=== PATIENT | female | born 1940 | race Caucasian/White ===

== ENCOUNTER → 2016-04-28 | Outpatient (CLI) | payer MEDICARE ==
[~2016-04-28] MED LIST: CALC600T10 PO; CARV6.252 PO; COLA100C PO; FLUO10TA PO; HYDR-3516 PO; HYZA50TA2 PO; MECL-62 PO; TAB-TAB PO; WALKER ROLLING
--- NOTE | 2016-05-04 09:16 | RSPPFT ---
DATE OF PROCEDURE: 04/28/16 COMMENTS: VOLUMES DYNAMIC: FVC and FEV1 normal. STATIC: RV mildly increased; TLC and VTG normal. FLOWS: FEV1% and FEF 25-75 normal. DIFFUSION: Normal. FLOW VOLUME LOOP: Flattening of the inspiratory loop. IMPRESSION: Essentially normal pulmonary functions with normal lung volumes, no significant airways obstruction, normal diffusion and no improvement post-bronchodilator. The flattening of the inspiratory loop required clinical correlation.
== END ==
LOC: HRSP 13:07
PROVIDERS: ATTEND Internal Medicine
DX: R06.02 Shortness of breath (principal)
CPT/HCPCS: 94060; 94620; 94726; 94729

== ENCOUNTER → 2016-06-28 | Day surgery (SDC) | payer MEDICARE ==
[~2016-06-28] MED LIST changes: +LACTATED RINGER'S 1,000 ML BAG IV ONE; +PROPOFOL 200 MG/20 ML AMP IV ONE
--- NOTE | 2016-06-28 13:22 | GIPROC ---
[facility] [address], [address] EGD PROCEDURE REPORT EXAM DATE: 06/28/2016 PATIENT NAME: Alia Jackson MR #: [id number] BIRTHDATE: 1940 ATTENDING: Ana Fajardo MD ORDER #: [id number] TOOL DIE MAKER: Daya Ramirez RN STATUS: outpatient INDICATIONS: The patient is a 75 yr old female here for an EGD due to dysphagia PROCEDURE PERFORMED: EGD w/ biopsy EGD w/ dilation of esophagus via guidewire MEDICATIONS: None and Per Anesthesia. TOPICAL ANESTHETIC: CONSENT: The patient understands the risks and benefits of the procedure and understands that these risks include, but are not limited to: sedation, allergic reaction, infection, perforation and/or bleeding. Alternative means of evaluation and treatment include, among others: physical exam, x-rays, and/or surgical intervention. The patient elects to proceed with this endoscopic procedure. medical equipment was checked for proper function. Hand hygiene and appropriate measures for infection prevention was taken. After the risks, benefits and alternatives of the procedure were thoroughly explained, Informed consent was verified, confirmed and timeout was successfully executed by the treatment team. The patient was anesthetized with topical anesthesia and the EC-[id number] ([id number]) endoscope was introduced through the mouth and advanced to the second portion of the duodenum. Retroflexed views revealed no abnormalities The gastroscope was then slowly withdrawn and removed. 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 The stricture was easily traversable. A biopsy was performed using cold forceps. Sample sent for histology. The stricture was dilated using a 17mm (51Fr) savary dilator over guidewire. STOMACH: There was mild gastritis in the gastric antrum. DUODENUM: The duodenal mucosa appeared normal in the bulb and second portion of the duodenum. ADVERSE EVENTS: There were no complications. IMPRESSIONS: 1. There was a short stricture in the distal esophagus 2. There was mild gastritis in the gastric antrum 3. Normal duodenal mucosa in the bulb and second portion of the duodenum 4. Retroflexed views revealed no abnormalities RECOMMENDATIONS: 1. Await biopsy results. Biopsy results will not be ready for 7-10 days. If you don't hear from us in two weeks, call our office for biopsy results. 2. Anti-reflux regimen 3. Continue PPI 4. Avoid NSAIDS PATIENT CONDITION: stable DISPOSITION: Home REPEAT EXAM: Return 1 year EGD with dilatation Ana Fajardo MD eSigned: Ana Fajardo MD 06/28/2016 1:21 PM cc: Marshall Boyer [facility] [place] PATIENT NAME: Alia Jackson MR#: [id number]
== END | disposition home or self-care (01) ==
LOC: ESDC 11:28
PROVIDERS: ATTEND Internal Medicine Gastroenterology
DX: R13.10 Dysphagia, unspecified (principal); K22.2 Esophageal obstruction; K29.70 Gastritis, unspecified, without bleeding
CPT/HCPCS: 00740; 43239; 43248; 88305; J7120

== ENCOUNTER 2016-08-29 10:09 | Emergency (ER) | payer MEDICARE ==
[~2016-08-29 10:09] MED LIST changes: -COLA100C PO; -HYDR-3516 PO; -LACTATED RINGER'S 1,000 ML BAG IV ONE; -PROPOFOL 200 MG/20 ML AMP IV ONE
[2016-08-29 10:12] VITALS: BP 135/65; PULSE 74; RESP 22; TEMP 98; O2SAT 98
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
[2016-08-29] MEDS ORDERED: SODIUM CHLORIDE 0.9% FLUSH 10 ML FLUSH IV FLUSH PRN (10:45)
[2016-08-29] MEDS ORDERED: ONDANSETRON HCL 4 MG/2 ML VIAL IVP ONE (10:45)
[2016-08-29] MEDS ORDERED: MORPHINE SULFATE 4 MG/ML INJ IV PUSH ONE (10:45)
[2016-08-29 11:24] LABS: AUTOMATED NEUTROPHIL # 5.6 TH/MM3 (1.8-7.7); BASOPHIL % 0.3 % (0.0-2.0); EOSINOPHIL # 0.1 TH/MM3 (0-0.4); EOSINOPHIL % 1.2 % (0.0-4.0); HEMATOCRIT 28.9 % (35.0-46.0); LYMPH % 31.8 % (9.0-44.0); LYMPHOCYTE # 2.9 TH/MM3 (1.0-4.8); MEAN CELL VOLUME 100.1 FL (80.0-100.0); MEAN CORPUSCULAR HEMOGLOBIN 33.8 PG (27.0-34.0); MEAN CORPUSCULAR HGB CONC 33.8 % (32.0-36.0); NEUT % 61.7 % (16.0-70.0); PLATELET COUNT 108 TH/MM3 (150-450); RED BLOOD COUNT 2.88 MIL/MM3 (4.00-5.30); WHITE BLOOD COUNT 9.1 TH/MM3 (4.0-11.0)
[2016-08-29 11:25] LABS: BACTERIA, URINE FEW /hpf; BLOOD, URINE NEG (NEG); COMMENT (UR) CULT NOT INDICATED; CULTURE IF INDICATED CULT NOT INDICATED; GLUCOSE,URINE NEG (NEG); KETONE, URINE NEG (NEG); NITRITE,URINE NEG (NEG); PH, URINE 5.5 (5.0-8.5); SQUAMOUS EPITHELIAL CELL URINE 4 /hpf (0-5); URINE COLOR YELLOW (YELLW/STRAW)
[2016-08-29 11:30] LABS: HEMO FLAGS AUTO DIFF
--- NOTE | 2016-08-29 11:41 | RADRPT ---
EXAM DATE/TIME: 08/29/2016 11:13 [facility] COMPARISON: CT ABDOMEN & PELVIS W/O CONTRAST, January 06, 2016, 16:15. INDICATIONS : Right flank pain for 3-4 weeks. Kidney pain ORAL CONTRAST: No oral contrast ingested. RADIATION DOSE: 15.55 CTDIvol (mGy) MEDICAL HISTORY : Renal calculi. SURGICAL HISTORY : Cholecystectomy. Appendectomy.Hysterectomy.DESMOND Fundiplication ENCOUNTER: Initial ACUITY: 3 weeks PAIN SCALE: 5/10 LOCATION: Right flank TECHNIQUE: Volumetric scanning of the abdomen and pelvis was performed. Using automated exposure control and ad justment of the mA and/or kV according to patient size, radiation dose was kept as low as reasonably achievable to obtain optimal diagnostic quality images. FINDINGS: LOWER LUNGS: The visualized lower lungs are clear. LIVER: The liver is mildly enlarged and demonstrates diffuse fatty infiltration. No focal hepatic mass is id entified on this unenhanced exam. There is no dilation of the biliary tree. No calcified gallstones . SPLEEN: Normal size without lesion. PANCREAS: Within normal limits. KIDNEYS: Normal in size and shape. Tiny calcified nonobstructing left renal calculi are noted and measure 3-4 mm each. There is no mass or hydronephrosis. ADRENAL GLANDS: Within normal limits. VASCULAR: There is no aortic aneurysm. BOWEL/MESENTERY: Small hiatal hernia is noted. Few uncomplicated sigmoid diverticula are noted. No acute diverticuliti s or colitis. ABDOMINAL WALL: Tiny ventral abdominal wall hernias containing only fat are noted. RETROPERITONEUM: There is no lymphadenopathy. BLADDER: No wall thickening or mass. REPRODUCTIVE: Within normal limits. Status post hysterectomy. INGUINAL: There is no lymphadenopathy or hernia. MUSCULOSKELETAL: Degenerative changes are noted throughout the lumbar and lower thoracic spine. Degenerative brush not ed involving the hips bilaterally. Left proximal femur hardware is noted status post ORIF. CONCLUSION: 1. Mildly enlarged fatty liver. 2. Multiple calcified nonobstructing left renal calculi measuring 3-4 mm each. 3. No acute obstructive uropathy. 4. Small hiatal hernia. 5. Uncomplicated sigmoid diverticulosis. 6. Tiny ventral abdominal wall hernias containing only fat. 7. Degenerative changes involving the lumbar spine and bilateral hips. Lio Mitchell MD on August 29, 2016 at 11:32 Board Certified Radiologist. This report was verified electronically.
[2016-08-29 11:50] LABS: ALKALINE PHOSPHATASE 144 U/L (45-117); TOTAL BILIRUBIN ADULT 0.4 MG/DL (0.2-1.0)
[2016-08-29 11:54] LABS: ALT (GPT) 29 U/L (10-53); ANION GAP 8 MEQ/L (5-15); AST (GOT) 28 U/L (15-37); BICARBONATE 28.1 MEQ/L (21.0-32.0); BLOOD UREA NITROGEN 20 MG/DL (7-18); CHLORIDE 106 MEQ/L (98-107); GLOMERULAR FILTRATION RATE 68 ML/MIN (>89); SODIUM (NA) 142 MEQ/L (136-145)
[2016-08-29] MEDS ORDERED: SODIUM CHLORID 0.9% 500 ML INJ 500 ML IV ONE (12:00)
[2016-08-29] MEDS ORDERED: COLA100C PO (12:04)
[2016-08-29] MEDS ORDERED: HYDR-3516 PO (12:04)
[2016-08-29 12:27] LABS: BANDS 1 % (0-6); METAMYELOCYTES 1 % (0-1); MYELOCYTES 1 % (0-0); NEUTROPHIL # MANUAL DIFF 5.9 TH/MM3 (1.8-7.7); POLYS (SEG NEUTROPHILS) 62 % (16-70); WBC DIFF SAMPLE 100
[2016-08-29 12:28] LABS: PLATELET ESTIMATE SMEAR LOW (NORMAL); PLATELET MORPHOLOGY NORMAL (NORMAL); SCAN/DIFF FINAL DIFF MANUAL
[2016-08-29] MEDS ORDERED: KETOROLAC TROMETHAMINE 30 MG/ML (IVP) VIAL IV PUSH ONE (12:30)
== END 2016-08-29 12:59 | disposition home or self-care (01) ==
LOC: NEPD 10:09
DX: M54.16 Radiculopathy, lumbar region (principal); R35.0 Frequency of micturition
CPT/HCPCS: 74176; 80053; 81001; 83690; 85007; 85027; 96374; 96375; 99285; J1885; J2270; J2405; J7040

== ENCOUNTER 2016-09-18 18:28 | Emergency (ER) | payer MEDICARE ==
[~2016-09-18] VITALS: Ht 165.1 cm; Wt 130.0 kg
[~2016-09-18 18:28] MED LIST changes: +COLA100C PO; +HYDR-3516 PO
[2016-09-18 18:29] VITALS: BP 124/69; PULSE 94; RESP 18; TEMP 97.9; O2SAT 100
[2016-09-18] MEDS ORDERED: SODIUM CHLOR 0.9% 1000 ML INJ 1,000 ML IV SCH (18:54)
[2016-09-18 18:55] VITALS: BP 154/75
[2016-09-18] MEDS ORDERED: MORPHINE SULFATE 4 MG/ML INJ IV PUSH ONE ×2 (19:00→21:00)
[2016-09-18] MEDS ORDERED: SODIUM CHLORIDE 0.9% FLUSH 10 ML FLUSH IV FLUSH PRN (19:00)
[2016-09-18] MEDS ORDERED: ONDANSETRON HCL 4 MG/2 ML VIAL IVP ONE (19:00)
[2016-09-18 19:05] VITALS: BP 178/99; PULSE 83; RESP 18; O2SAT 97
[2016-09-18] MEDS ORDERED: ORPHENADRINE INJ 60 MG/2 ML AMP IV ONE (19:15)
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
[2016-09-18 20:15] VITALS: BP 152/85; PULSE 70; RESP 18; O2SAT 98
[2016-09-18] MEDS ORDERED: CYCL5TAB PO (20:18)
[2016-09-18] MEDS ORDERED: MELO-1 PO (20:18)
[2016-09-18] MEDS ORDERED: LIDO5DIS5 TOPICAL (20:45)
[2016-09-18] MEDS ORDERED: ONDANSETRON HCL 4 MG/2 ML VIAL IV PUSH ONE (21:00)
[2016-09-18 21:11] VITALS: RESP 16
== END 2016-09-18 21:33 | disposition home or self-care (01) ==
LOC: NEPD 18:28
DX: I10 Essential (primary) hypertension (principal); F41.8 Other specified anxiety disorders; E11.9 Type 2 diabetes mellitus without complications; Z79.82 Long term (current) use of aspirin; M19.90 Unspecified osteoarthritis, unspecified site; K22.70 Barrett's esophagus without dysplasia; Z96.653 Presence of artificial knee joint, bilateral; M54.16 Radiculopathy, lumbar region; M62.838 Other muscle spasm
CPT/HCPCS: 96361; 96374; 96375; 96376; 99284; J2270; J2360; J2405; J7030

== ENCOUNTER 2017-07-06 21:46 | Emergency (ER) | payer MEDICARE ==
[~2017-07-06] VITALS: Ht 162.6 cm; Wt 130.0 kg
[~2017-07-06 21:46] MED LIST changes: -COLA100C PO; +COLA100C5 PO; +CYCL5TAB PO; +LIDO1ADH4 TOPICAL; +MELO15TA20 PO
[2017-07-06 21:55] VITALS: BP 149/93; PULSE 98; RESP 18; TEMP 98.1; O2SAT 94
--- NOTE | 2017-07-06 23:08 | RADRPT ---
EXAM DATE/TIME: 07/06/2017 22:15 [facility] COMPARISON: No previous studies available for comparison. INDICATIONS : Patient fell and and complains of right shoudler pain. MEDICAL HISTORY : None. SURGICAL HISTORY : None. ENCOUNTER: Initial ACUITY: 1 day PAIN SCORE: 7/10 LOCATION: Right Shoulder FINDINGS: Multiple view examination of the right shoulder demonstrates no evidence of fracture or dislocation. The glenohumeral and acromioclavicular joints are maintained. There is normal range of motion betwe en internal and external rotation. Bony mineralization is normal. CONCLUSION: No acute disease. Slava Palacios MD on July 06, 2017 at 23:06 Board Certified Radiologist. This report was verified electronically.
--- NOTE | 2017-07-06 23:09 | RADRPT ---
EXAM DATE/TIME: 07/06/2017 22:24 [place] COMPARISON: No previous studies available for comparison. INDICATIONS : Patient complains of right humerus pain status post fall. MEDICAL HISTORY : None. SURGICAL HISTORY : Radial head arthroplasty. ENCOUNTER: Initial ACUITY: 1 day PAIN SCORE: 7/10 LOCATION: Right Humerus FINDINGS: Two view examination of the right humerus demonstrates no evidence of fracture or dislocation. Bony mineralization is normal. There is a prosthetic component seen at the radial head region. The soft ti ssue structures are intact. CONCLUSION: No acute disease. Slava Palacios MD on July 06, 2017 at 23:06 Board Certified Radiologist. This report was verified electronically.
[2017-07-06] MEDS ORDERED: CARV6.25 PO (23:19)
[2017-07-06] MEDS ORDERED: LOSA50TA2 PO (23:19)
[2017-07-06] MEDS ORDERED: FLUO10TA PO (23:19)
[2017-07-06] MEDS ORDERED: CALC12502 PO (23:19)
[2017-07-06] MEDS ORDERED: ONDANSETRON ODT 4 MG TAB PO ONE (23:30)
[2017-07-06] MEDS ORDERED: ACETAMINOPHEN/HYDROcodone 325 MG/5 MG TAB PO ONE (23:30)
--- NOTE | 2017-07-06 23:31 | PD ---
HPI Chief Complaint: Injury Time Seen by Provider: 23:10 Travel History International Travel<30 days: No Contact w/Intl Traveler<30days: No Traveled to known affect area: No History of Present Illness HPI 68-year-old female complains of right arm pain. She experienced a mechanical fall and struck the right arm against current table. No head injury or loss of consciousness. The pain has been constant since and of moderate severity. EMS applied an ice pack which was helpful. Onset sudden. PFSH Past Medical History Hx Anticoagulant Therapy: Yes (81 MG ASA ) Arthritis: Yes (osteoarthritis) Asthma: No Autoimmune Disease: No Blood Disorders: No Anxiety: Yes Depression: Yes Heart Rhythm Problems: No Cancer: Yes Cardiac Catheterization: Yes Cardiovascular Problems: Yes High Cholesterol: No Chemotherapy: No Chest Pain: Yes Congestive Heart Failure: No COPD: No Cerebrovascular Accident: No Diabetes: Yes Patient Takes Glucophage: No Diminished Hearing: No Endocrine: No Gastrointestinal Disorders: Yes (Wilkinson's esophagus) GERD: Yes Glaucoma: No Genitourinary: Yes Headaches: Yes Hepatitis: No Hiatal Hernia: Yes Hypertension: Yes Immune Disorder: No Implanted Vascular Access Dvce: Yes Kidney Stones: Yes Medical other: Yes (HX MRSA) Musculoskeletal: Yes Neurologic: Yes Psychiatric: Yes (ANXIETY, DEPRESSION) Reproductive: No Respiratory: Yes (SLEEP APNEA--USES CPAP) Immunizations Current: Yes Migraines: No Myocardial Infarction: No Radiation Therapy: No Renal Failure: No Seizures: No Sickle Cell Disease: No Sleep Apnea: No Thyroid Disease: No Ulcer: Yes Menopausal: Yes Past Surgical History Abdominal Surgery: Yes (GALLBLADDER; APPENDECTOMY; MARVA FUNDIPLICATION) AICD: No Appendectomy: Yes Arteriovenous Shunt: No Body Medical Devices: LEFT HIP WITH KAT AND PINS Cardiac Surgery: No Cholecystectomy: Yes Coronary Artery Bypass Graft: No Ear Surgery: No Endocrine Surgery: No Eye Surgery: Yes (CATARACTS) Genitourinary Surgery: Yes Gynecologic Surgery: Yes Hysterectomy: Yes Insulin Pump: No Joint Replacement: Yes (kay knee, lt hip) Neurologic Surgery: No Oral Surgery: Yes Pacemaker: No Thoracic Surgery: No Tonsillectomy: Yes Other Surgery: Yes (LAMINECTOMY) Social History Alcohol Use: No Tobacco Use: No Substance Use: No Allergies-Medications (Allergen,Severity, Reaction): Coded Allergies: Sulfa (Sulfonamide Antibiotics) (Unverified Allergy, Severe, RASH/SWELLING , 10/31/16) adhesive (Unverified Allergy, Severe, ONLY ADHESIVE TAPE, 10/31/16) gabapentin (Unverified Allergy, Severe, UNKNOWN REACTION, 10/31/16) codeine (Unverified Allergy, Mild, RASH/SWELLING, 10/31/16) *MDRO Multi-Drug Resistant Organism (Verified Adverse Reaction, Unknown, ) KPC Klebsiella pneumoniae (urine) - 12/2009 VRE Enterococcus faecium (urine) - 03/2009 Reported Meds & Prescriptions Reported Meds & Active Scripts Active Lidoderm (Lidocaine) 5 % Adh..patch 1 Patch TOPICAL DAILY PRN Flexeril (Cyclobenzaprine HCl) 5 Mg Tab 5 Mg PO TID PRN 7 Days Meloxicam 15 Mg Tab 15 Mg PO DAILY 7 Days Colace (Docusate Sodium) 100 Mg Capsule 1 Tab PO BID PRN Reported Losartan-Hydrochlorothiazide 50-12.5 Mg Tab 1 Tab PO DAILY Fluoxetine (Fluoxetine HCl) 10 Mg Tab 10 Mg PO DAILY Coreg (Carvedilol) 6.25 Mg Tab 6.25 Mg PO BID Calcium (Oyster Shell) 500 Mg Calcium (1250 Mg) Tab 500 Mg PO DAILY Review of Systems General / Constitutional: No: Chills Eyes: No: Drainage Physical Exam Narrative GENERAL: Pleasant 76-year-old female mild distress secondary pain Vital Signs Date Time Temp Pulse Resp B/P (MAP) Pulse Ox O2 Delivery O2 Flow Rate FiO2 07/06/17 21:55 98.1 98 18 149/93 (111) 94 SKIN: Warm and dry. HEAD: Atraumatic. Normocephalic NECK: Trachea midline. No JVD. CARDIOVASCULAR: Regular rate and rhythm. RESPIRATORY: No accessory muscle use. Clear to auscultation. Breath sounds equal bilaterally. GASTROINTESTINAL: Abdomen soft, non-tender, nondistended. Hepatic and splenic margins not palpable. MUSCULOSKELETAL: Ecchymosis about the right humerus. Range of motion at the elbow and shoulder normal. Hand grades 9 through 12 teacher equal bilaterally. 2+ radial artery pulse bilaterally. NEUROLOGICAL: Awake and alert. No obvious cranial nerve deficits. Motor grossly within normal limits. Five out of 5 muscle strength in the arms and legs. Normal speech. PSYCHIATRIC: Appropriate mood and affect; insight and judgment normal. Data Data Last Documented VS Vital Signs Date Time Temp Pulse Resp B/P (MAP) Pulse Ox O2 Delivery O2 Flow Rate FiO2 4/20/18 21:55 98.1 98 18 149/93 (111) 94 Orders Orders Humerus (Min 2vws) (07/06/17 ) Shoulder, Complete (>2vws) (07/06/17 ) Ed Discharge Order (07/06/17 23:29) Acetamin-Hydrocod 325-5 Mg ([place] 5-325 (07/06/17 23:30) Ondansetron Odt (Zofran Odt) (07/06/17 23:30) ^ Sling (07/06/17 23:30) MDM Medical Decision Making Medical Screen Exam Complete: Yes Emergency Medical Condition: Yes Medical Record Reviewed: Yes Differential Diagnosis Fracture, dislocation, contusion Narrative Course Imaging is unremarkable. Patient is ready for discharge. Ice with a sling for pain control at home along with Tylenol as needed. Diagnosis Primary Impression: Contusion, arm, upper Qualified Codes: S40.021A - Contusion of right upper arm, initial encounter Additional Impression: Fall Qualified Codes: W19.XXXA - Unspecified fall, initial encounter Referrals: Primary Care Physician call for appointment Med/Other Pt SpecificInfo: No Change to Meds Disposition: 01 DISCHARGE HOME Condition: Stable Dennis Castañeda MD Jul 06, 2017 23:31
== END 2017-07-07 00:45 | disposition home or self-care (01) ==
LOC: NEDAMB 21:46 → NEPD 07-07 00:45
DX: S40.021A Contusion of right upper arm, initial encounter (principal); I10 Essential (primary) hypertension
CPT/HCPCS: 73030; 73060; 99283

== ENCOUNTER → 2017-07-18 | Day surgery (SDC) | payer MEDICARE ==
[~2017-07-18] MED LIST changes: +CALC12502 PO; -CALC600T10 PO; +CARV6.25 PO; -CARV6.252 PO; -HYDR-3516 PO; -HYZA50TA2 PO; +LACTATED RINGER'S 1000 ML INJ 1,000 ML ONE; +LOSA50TA2 PO; -MECL-62 PO; +PROPOFOL 200 MG/20 ML AMP IV ONE; -TAB-TAB PO; -WALKER ROLLING
--- NOTE | 2017-07-18 09:02 | GIPROC ---
[facility] [address] [facility], [id number] EGD PROCEDURE REPORT EXAM DATE: 07/18/2017 PATIENT NAME: Alia Jackson MR #: [id number] BIRTHDATE: 1940 ATTENDING: Ana Fajardo MD ORDER #: [id number] [employer]: Sita Gudino RN STATUS: outpatient INDICATIONS: The patient is a 76 yr old female here for an EGD due to history of esophageal reflux and dysphagia PROCEDURE PERFORMED: EGD w/ biopsy EGD w/ dilation of esophagus via guidewire MEDICATIONS: None and Per Anesthesia. TOPICAL ANESTHETIC: CONSENT: The patient understands the risks and benefits of the procedure and understands that these risks include, but are not limited to: sedation, allergic reaction, infection, perforation and/or bleeding. Alternative means of evaluation and treatment include, among others: physical exam, x-rays, and/or surgical intervention. The patient elects to proceed with this endoscopic procedure. medical equipment was checked for proper function. Hand hygiene and appropriate measures for infection prevention was taken. After the risks, benefits and alternatives of the procedure were thoroughly explained, Informed consent was verified, confirmed and timeout was successfully executed by the treatment team. The patient was anesthetized with topical anesthesia and the EC-[id number] ([id number]) endoscope was introduced through the mouth and advanced to the second portion of the duodenum. Retroflexed views revealed no abnormalities The gastroscope was then slowly withdrawn and removed. ESOPHAGUS: There was a short benign appearing stricture in the distal esophagus. The stricture was easily traversable. The stricture was dilated using a 15mm (45Fr) savary dilator over guidewire. STOMACH: There was erythematous moderate gastritis in the gastric antrum. A biopsy was performed using cold forceps. Sample sent for histology. DUODENUM: The duodenal mucosa appeared normal in the bulb and second portion of the duodenum. ADVERSE EVENTS: There were no complications. IMPRESSIONS: 1. There was a short stricture in the distal esophagus; The stricture was dilated using a 15mm (45Fr) savary dilator over guidewire 2. There was erythematous gastritis in the gastric antrum; biopsy was performed 3. Normal duodenal mucosa in the bulb and second portion of the duodenum 4. Retroflexed views revealed no abnormalities RECOMMENDATIONS: 1. Await biopsy results. Biopsy results will not be ready for 7-10 days. If you don't hear from us in two weeks, call our office for biopsy results. 2. Anti-reflux regimen 3. Continue PPI 4. Ranitidine 150mg q hs PATIENT CONDITION: stable DISPOSITION: Home REPEAT EXAM: Return 1 year EGD with dilatation Ana Fajardo MD eSigned: Ana Fajardo MD 07/18/2017 9:02 AM cc: Piyush Boyer [facility] Arlien Cali M.D. PATIENT NAME: Alia Jackson MR#: [id number]
== END | disposition home or self-care (01) ==
LOC: ESDC 07:32
PROVIDERS: ATTEND Internal Medicine Gastroenterology
DX: K21.9 Gastro-esophageal reflux disease without esophagitis (principal); R13.10 Dysphagia, unspecified; K22.2 Esophageal obstruction; K29.70 Gastritis, unspecified, without bleeding
CPT/HCPCS: 00731; 43239; 43248; 88305; 88312; J3010; J7120

== ENCOUNTER 2018-02-20 15:02 | Inpatient (IN) ==
[2018-02-20] MEDS ORDERED: Sod Chloride 0.9% Inj 1,000 ML IV.SIG SCH (15:30)
--- NOTE | 2018-02-20 15:43 | ED ---
HPI General Chief Complaint: Fall Stated Complaint: fall Time Seen by Provider: 02/20/18 15:19 Source: patient Mode of arrival: ambulatory Limitations: no limitations History of Present Illness HPI Narrative: 77-year-old female with a history of diabetes mellitus type 2 with peripheral neuropathy, hypertension, hyperlipidemia presents to the emergency department for evaluation of a fall that occurred just prior to arrival. Patient states that she stood up from her seat got dizzy and fell landing on her left side of the body. She denies loss of consciousness, blurred vision, headache. Denies neck or back pain. Denies numbness or tingling to extremities that is abnormal for her. She says her pain is focused in the left wrist, left elbow, and left eye. She says she has bruises to these areas and has difficulty walking secondary to pain. Patient denies use of blood thinners but does take aspirin daily. She denies history of cardiac problems. She denies fever, chills, chest pain, shortness of breath, abdominal pain. Says the left knee feels swollen and has difficulty bending the knees secondary to pain. She denies numbness or tingling to the extremities. Related Data Home Medications Medication Instructions Recorded Confirmed aspirin [Enteric Coated Aspirin] 81 mg PO DAILY 02/05/18 02/20/18 calcium carbonate-vitamin D3 600 mg PO DAILY 02/05/18 02/20/18 [Calcium 600 + D(3)] carvedilol 3.125 mg PO BID 02/05/18 02/20/18 letrozole 2.5 mg PO DAILY 02/05/18 02/20/18 losartan-hydrochlorothiazide 1 tab PO DAILY 02/05/18 02/20/18 magnesium oxide 400 mg PO DAILY 02/05/18 02/20/18 pantoprazole 40 mg PO DAILY 02/05/18 02/20/18 simvastatin 20 mg PO QPM 02/05/18 02/20/18 venlafaxine 75 mg PO DAILY 02/05/18 02/20/18 sitagliptin [Januvia] 50 mg PO DAILY 02/20/18 02/20/18 Allergies Allergy/AdvReac Type Severity Reaction Status Date / Time adhesive Allergy Severe Rash Verified 02/20/18 15:19 gabapentin Allergy Severe Anaphylaxis Verified 02/20/18 15:19 Sulfa (Sulfonamide Allergy Severe RASH/SWELLI Verified 02/20/18 15:19 Antibiotics) NG codeine Allergy Mild RASH/SWELLI Verified 02/20/18 15:19 NG Review of Systems ROS: all other systems reviewed are negative [facility] History History Provided By: Patient Medical History Medical History Wilkinson esophagus (Acute) Breast cancer (Acute) Cataracts, bilateral (Acute) Constipation (Acute) Depression (Acute) Diabetes (Acute) Diverticulosis (Acute) Esophagitis (Acute) GERD (gastroesophageal reflux disease) (Acute) High cholesterol (Acute) Hypertension (Acute) Incontinence (Acute) Osteoporosis (Acute) Sleep apnea (Acute) Social History Social History Substance History: No History of Abuse Second Hand Smoke Exposure: No Smoking Status: Never smoker How Often Do You Have a Drink Containing Alcohol: Never Recent Travel in [facility] within the Last 8 Weeks: No Exam Narrative Exam Narrative: GENERAL: WD, WN in NAD SKIN: Focused skin assessment warm/dry. HEAD: Atraumatic. Normocephalic. EYES: Pupils equal and round. No scleral icterus. No injection or drainage. Lateral left eye-small ecchymosis with tenderness directly over the hematoma. EOMI without restriction ENT: No nasal bleeding or discharge. Mucous membranes pink and moist. No tonsillar hypertrophy or exudate. NECK: Trachea midline. No JVD. No meningismus. No midline tenderness. CARDIOVASCULAR: Regular rate and rhythm. No murmur appreciated. RESPIRATORY: No accessory muscle use. Clear to auscultation. Breath sounds equal bilaterally. GASTROINTESTINAL: Abdomen soft, non-tender, nondistended. No CVAT. MUSCULOSKELETAL: No obvious deformities. No clubbing. No cyanosis. No edema. No tenderness to palpation of the calves. Sensation intact to bilateral lower extremities. left knee- ecchymosis measuring 3cm over patella with TTP. Difficulty moving secondary to pain. pulse, motor, sensory intact. left wrist- ecchymosis of wrist, limited range of motion but able to flex and extend wrist with minimal discomfort. pulse, motor, sensory intact. left shoulder- TTP to shoulder girdle, limited ROM but able to adduct and abduct with near FROM. pulse, motor, sensory intact. NEUROLOGICAL: Awake and alert. No obvious cranial nerve deficits. Motor grossly within normal limits. Normal speech. PSYCHIATRIC: Appropriate mood and affect; insight and judgment normal. Course Initial Documented Vital Signs Temperature 98 F 12/05/18 15:20 Pulse Rate 73 02/20/18 15:20 Respiratory Rate 18 02/20/18 15:20 Blood Pressure 143/67 H 02/20/18 15:20 Pulse Oximetry 99 02/20/18 15:20 Last Documented Vital Signs Temperature 97.8 F 02/20/18 18:28 Pulse Rate 76 02/20/18 18:28 Respiratory Rate 18 02/20/18 18:55 Blood Pressure 138/77 02/20/18 18:28 Pulse Oximetry 98 02/20/18 18:28 Medical Decision Making MATTEO Attestation MATTEO supervised visit: Yes Attestation: I, Dr. George, have reviewed the advance practice practitioner' s documentation and am in agreement, met with the patient face to face, made the diagnosis, and the medical decision making was done by me. *My assessment and Findings: 77-year-old female who was initially evaluated by the mid-level procedure note. The patient fell, injuring her left knee and wrist. The x-ray of the left knee revealed no fracture, she did have swelling and ecchymosis, however, x-ray of the left wrist revealed a nondisplaced fracture. The patient lives alone at home, her 8 years ago. She uses a walker with wheels to ambulate around the house, is unable to get up and ambulate with a walker currently secondary to the left wrist fracture in a splint. Therefore, case management was notified, they will attempt to obtain home health care nursing starting tomorrow, the patient will be 23-hour observation and may benefit from physical therapy evaluation to evaluate what the patient will need at home in order to perform her ADLs, ambulation, and pain control. [facility] Narrative Medical decision making narrative: 77-year-old female presents to the emergency department evaluation after a fall that occurred today. She states she stood up , felt dizzy and then fell onto the ground. She denies loss of consciousness. Says she has a contusion to the left lateral orbit. She is also complaining of left knee pain, left wrist pain. Labs ordered for evaluation appear to be stable. No leukocytosis. Urinalysis noncontributory. Troponin negative. EKG sinus rhythm rate [address] head, neck and face stable. Without acute process. Left wrist fracture noted. She is neurovascularly intact. Placed in splint. Left knee without fracture but contusions present and she c/o pain. Hydrocodone x2 administered for pain. I discussed this case with my attending who believes she would benefit from an admission. Will admit and have HHC and PT evaluate. Pt would be an unsafe discharge at this time as she lives alone without family available. She would be unable to use her walker as she has a wrist fracture. Will recommend patient be evaluated by ortho (Dr. Julien) for her wrist fracture. Spoke with the residents who agreed to the admission. Medical Screen Exam Complete: Yes Emergency Medical Condition: Yes Differential Diagnosis Differential Diagnosis: Left wrist fracture, sprain, left knee fracture, contusion, left facial contusion, ICH, SAH Lab Data Result diagrams: 02/20/18 15:00 02/20/18 15:00 Lab Results 02/20/18 02/20/18 02/20/18 Range/Units 15:00 15:00 15:00 WBC 10.7 (4.0-11.0) th/mm3 RBC 3.81 L (4.00-5.30) mil/mm3 Hgb 12.4 (11.6-15.3) gm/dL Hct 36.9 (35.0-46.0) % MCV 96.9 (80.0-100.0) fL MCH 32.6 (27.0-34.0) pg MCHC 33.6 (32.0-36.0) % RDW 14.1 (11.6-17.2) % Plt Count 246 (150-450) th/mm3 MPV 8.0 (7.0-11.0) fL Neut % (Auto) 73.7 H (16.0-70.0) % Lymph % (Auto) 16.6 (9.0-44.0) % [place] % (Auto) 6.7 (0.0-8.0) % Eos % (Auto) 2.0 (0.0-4.0) % Baso % (Auto) 1.0 (0.0-2.0) % Neut # (Auto) 7.9 H (1.8-7.7) th/mm3 Lymph # (Auto) 1.8 (1.0-4.8) th/mm3 Charl[place] # (Auto) 0.7 (0.0-0.9) th/mm3 Eos # (Auto) 0.2 (0.0-0.4) th/mm3 Baso # (Auto) 0.1 (0.0-0.2) th/mm3 WBC Differential . Differential Comment Auto diff final PT 11.4 (9.8-11.6) sec INR 1.1 Ratio APTT 31.6 (23.4-31.7) sec Sodium 141 (136-145) meq/L Potassium 3.6 (3.5-5.1) meq/L Chloride 106 (98-107) meq/L Carbon Dioxide 26.3 (21.0-32.0) meq/L Anion Gap 9 (5-15) meq/L BUN 16 (7-18) mg/dL Creatinine 0.87 (0.50-1.00) mg/dL Estimated GFR 63 L (>89) mL/min Random Glucose 159 H (74-106) mg/dL Calcium 9.3 (8.5-10.1) mg/dL Total Bilirubin 0.3 (0.2-1.0) mg/dL AST 17 (15-37) U/L ALT 30 (10-53) U/L Alkaline Phosphatase 88 (45-117) U/L Troponin I (0.02-0.05) ng/mL Total Protein 7.3 (6.4-8.2) g/dL Albumin 3.3 L (3.4-5.0) g/dL Urine Color (Yellw/Straw) Urine Clarity (Clear) Urine pH (5.0-8.5) Ur Specific [place] (1.002-1.035) Urine Protein (Neg-Trace) mg/dL Urine Glucose (UA) (Negative) mg/dL Urine Ketones (Negative) mg/dL Urine Occult Blood (Negative) Urine Nitrate (Negative) Urine Bilirubin (Negative) Urine Urobilinogen (Less than 2) mg/dL Ur Leukocyte Esterase (Negative) Urine RBC (0-3) /hpf Urine WBC (0-5) /hpf Ur Squamous Epith Cells (0-5) /hpf Hyaline Casts (0-3) /lpf Urine Mucus (Occasional) /lpf Micro UA Comment Ur Microscopic Review Urine Culture Comments 02/20/18 02/20/18 Range/Units 15:00 16:30 WBC (4.0-11.0) th/mm3 RBC (4.00-5.30) mil/mm3 Hgb (11.6-15.3) gm/dL Hct (35.0-46.0) % MCV (80.0-100.0) fL MCH (27.0-34.0) pg MCHC (32.0-36.0) % RDW (11.6-17.2) % Plt Count (150-450) th/mm3 MPV (7.0-11.0) fL Neut % (Auto) (16.0-70.0) % Lymph % (Auto) (9.0-44.0) % [place] % (Auto) (0.0-8.0) % Eos % (Auto) (0.0-4.0) % Baso % (Auto) (0.0-2.0) % Neut # (Auto) (1.8-7.7) th/mm3 Lymph # (Auto) (1.0-4.8) th/mm3 [place] # (Auto) (0.0-0.9) th/mm3 Eos # (Auto) (0.0-0.4) th/mm3 Baso # (Auto) (0.0-0.2) th/mm3 WBC Differential Differential Comment PT (9.8-11.6) sec INR Ratio APTT (23.4-31.7) sec Sodium (136-145) meq/L Potassium (3.5-5.1) meq/L Chloride (98-107) meq/L Carbon Dioxide (21.0-32.0) meq/L Anion Gap (5-15) meq/L BUN (7-18) mg/dL Creatinine (0.50-1.00) mg/dL Estimated GFR (>89) mL/min Random Glucose (74-106) mg/dL Calcium (8.5-10.1) mg/dL Total Bilirubin (0.2-1.0) mg/dL AST (15-37) U/L ALT (10-53) U/L Alkaline Phosphatase (45-117) U/L Troponin I Less than 0.02 L (0.02-0.05) ng/mL Total Protein (6.4-8.2) g/dL Albumin (3.4-5.0) g/dL Urine Color Yellow (Yellw/Straw) Urine Clarity Hazy H (Clear) Urine pH 5.0 (5.0-8.5) Ur Specific [place] 1.019 (1.002-1.035) Urine Protein Negative (Neg-Trace) mg/dL Urine Glucose (UA) Negative (Negative) mg/dL Urine Ketones Negative (Negative) mg/dL Urine Occult Blood Negative (Negative) Urine Nitrate Negative (Negative) Urine Bilirubin Negative (Negative) Urine Urobilinogen Less than 2 (Less than 2) mg/dL Ur Leukocyte Esterase Negative (Negative) Urine RBC 1 (0-3) /hpf Urine WBC 1 (0-5) /hpf Ur Squamous Epith Cells 3 (0-5) /hpf Hyaline Casts 1 (0-3) /lpf Urine Mucus Few H (Occasional) /lpf Micro UA Comment Culture not ind Ur Microscopic Review Not Reportable Urine Culture Comments Culture not ind Imaging Data Radiologist's impression: Cervical Spine CT 02/20/18 15:28 CONCLUSION: 1. Stable osteopenia and degenerative changes are noted throughout the cervical spine. 2. Mild broad-based bulging with disc osteophyte complex at C5-6. 3. No significant changes are seen compared to the prior exam. Face CT 02/20/18 15:28 CONCLUSION: 1. No acute bony fracture. 2. Chronic sinus disease in the right sphenoid and ethmoid sinuses. 3. 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 Head CT 02/20/18 15:28 CONCLUSION: 1. No focal or acute intracranial hemorrhage. 2. Stable bilateral cortical atrophy and chronic white matter changes. . Knee X-Ray 02/20/18 15:28 CONCLUSION: 1. Status post left knee arthroplasty. No radiographic evidence for hardware failure. 2. No acute fracture. Shoulder X-Ray 02/20/18 15:28 CONCLUSION: Degenerative changes suggesting chronic rotator cuff tear. Fracture not appreciated. Wrist X-Ray 02/20/18 15:28 CONCLUSION: Nondisplaced fracture of the distal radius and ulna. Diffuse osteopenia Discharge Plan Discharge Disposition Patient Disposition: ED Admit(ED Internal Use Only) Discharge Condition Condition: Stable Discharge Order Discharge Orders: ED Use Only Admit Order (Routine); Ordered 02/20/18 Ordered By: Sharmila Souza Discharge Details Diagnosis: Fracture of wrist, Knee contusion, Fall Physicians Team ED Provider: Yobani George ED Midlevel Provider: Sharmila Souza Primary Care Provider: Marshall Cali Attending Provider: Leonidas Cortes Status ED Status: Left Department Discharge Information Discharge Date/Time: 02/20/18 20:30
[2018-02-20 16:06] LABS: Baso # (Auto) 0.1 th/mm3 (0.0-0.2); Eos # (Auto) 0.2 th/mm3 (0.0-0.4); Hematocrit 36.9 % (35.0-46.0); Hemoglobin 12.4 gm/dL (11.6-15.3); Lymph # (Auto) 1.8 th/mm3 (1.0-4.8); Lymph % (Auto) 16.6 % (9.0-44.0); Mean Corpuscular HGB Conc 33.6 % (32.0-36.0); Mean Corpuscular Hemoglobin 32.6 pg (27.0-34.0); Mean Corpuscular Volume 96.9 fL (80.0-100.0); Mono # (Auto) 0.7 th/mm3 (0.0-0.9); Mono % (Auto) 6.7 % (0.0-8.0); Neut # (Auto) 7.9 th/mm3 (1.8-7.7); Neut % (Auto) 73.7 % (16.0-70.0); Platelet Count 246 th/mm3 (150-450); Red Blood Count 3.81 mil/mm3 (4.00-5.30); Red Cell Distribution Width 14.1 % (11.6-17.2); White Blood Count 10.7 th/mm3 (4.0-11.0)
[2018-02-20 16:12] LABS: Activated Partial Thrombo Time 31.6 sec (23.4-31.7); INR 1.1 Ratio; Prothrombin Time 11.4 sec (9.8-11.6)
--- NOTE | 2018-02-20 16:42 | XR ---
EXAM DATE: 02/20/2018 4:37 PM EST AGE/SEX: 77 years / Female INDICATIONS: Left knee pain post fall today CLINICAL DATA: This is the patient's initial encounter. Patient reports that signs and symptoms have been present for 1 day and indicates a pain score of 8/10. MEDICAL/SURGICAL HISTORY: None. Total knee replacement, left. [place] [facility] [place]/2016. . FINDINGS: There is a stable left knee arthroplasty in place. Arthroplasty components are in anatomic alignment. No perihardware loosening. Osseous structures appear intact without evidence for acute fracture. No significant suprapatellar effusion. Soft tissue hematoma in the suprapatellar region. No radiopaque s oft tissue foreign bodies. CONCLUSION: 1. Status post left knee arthroplasty. No radiographic evidence for hardware failure. 2. No acute fracture. Electronically signed by: Paolo Pantoja MD 02/20/2018 4:41 PM EST
--- NOTE | 2018-02-20 16:43 | XR ---
EXAM DATE: 02/20/2018 4:40 PM EST AGE/SEX: 77 years / Female INDICATIONS: Left wrist pain post fall today CLINICAL DATA: This is the patient's initial encounter. Patient reports that signs and symptoms have been present for 1 day and indicates a pain score of 8/10. MEDICAL/SURGICAL HISTORY: . Prior left wrist fracture . Prior ORIF left wrist COMPARISON: . FINDINGS: Bones are osteoporotic. There is a minimally impacted fracture of the distal radius. There is an acut e fracture the ulnar styloid as well. Alignment is reasonably anatomic. Extensive degenerative change s are present about the carpus. CONCLUSION: Nondisplaced fracture of the distal radius and ulna. Diffuse osteopenia Electronically signed by: Solomon Emmanuel MD 02/20/2018 4:42 PM EST
--- NOTE | 2018-02-20 16:46 | XR ---
EXAM DATE: 02/20/2018 4:42 PM EST AGE/SEX: 77 years / Female INDICATIONS: Left shoulder pain post fall today CLINICAL DATA: This is the patient's initial encounter. Patient reports that signs and symptoms have been present for 1 day and indicates a pain score of 8/10. MEDICAL/SURGICAL HISTORY: None. None. COMPARISON: . FINDINGS: There are degenerative changes about the shoulder with acromioclavicular joint spurring. There is becca e narrowing of the rotator cuff interval. Alignment anatomic. Fracture is not appreciated. CONCLUSION: Degenerative changes suggesting chronic rotator cuff tear. Fracture not appreciated. Electronically signed by: Solomon Emmanuel MD 02/20/2018 4:45 PM EST
--- NOTE | 2018-02-20 17:05 | CT ---
EXAM DATE: 02/20/2018 4:58 PM EST AGE/SEX: 77 years / Female INDICATIONS: Trauma, facial injury. CLINICAL DATA: This is the patient's initial encounter. Patient reports that signs and symptoms have been present for 1 day and indicates a pain score of 5/10. MEDICAL/SURGICAL HISTORY: Carcinoma, breast. Diabetes. Hypertension. Appendectomy. Cholecyst ectomy. RADIATION DOSE: 25.63 CTDI (mGy) COMPARISON: [facility], CT CERVICAL SPINE W/O CONTRAST, 01/08/2016. . TECHNIQUE: Contiguous axial images were obtained using helical multirow detector technique. The vol umetric data was post-processed with multiplanar reconstruction in oblique axial, sagittal, and coron al planes. Using automated exposure control and adjustment of the mA and/or kV according to patient s ize, radiation dose was kept as low as reasonably achievable to obtain optimal diagnostic quality dayanna ges. DICOM format image data is available electronically for review and comparison. FINDINGS: Vertebrae: Normal vertebral body height. There is some osteopenia and degenerative changes involving the cervical spine. These findings are stable compared to the prior study from 2016. No compression fracture injuries are demonstrated. Alignment: Normal. No subluxation. C2-3: The bony spinal canal is normal in size. No evidence of disc bulge or herniation. The neural foramina are bilaterally patent. C3-4: The bony spinal canal is normal in size. No evidence of disc bulge or herniation. The neural foramina are bilaterally patent. C4-5: The bony spinal canal is normal in size. No evidence of disc bulge or herniation. The neural foramina are bilaterally patent. C5-6: Mild broad-based bulging with disc osteophyte complex. The neural foramina are patent bilatera lly. C6-7: The bony spinal canal is normal in size. No evidence of disc bulge or herniation. The neural foramina are bilaterally patent. C7-T1: The bony spinal canal is normal in size. No evidence of disc bulge or herniation. The neura l foramina are bilaterally patent. Compared to the prior exam there has been no new or significant changes. CONCLUSION: 1. Stable osteopenia and degenerative changes are noted throughout the cervical spine. 2. Mild broad-based bulging with disc osteophyte complex at C5-6. 3. No significant changes are seen compared to the prior exam. Electronically signed by: Prince Pena MD 02/20/2018 5:03 PM EST
--- NOTE | 2018-02-20 17:08 | CT ---
EXAM DATE: 02/20/2018 5:02 PM EST AGE/SEX: 77 years / Female INDICATIONS: Trauma, left eye trauma. CLINICAL DATA: This is the patient's initial encounter. Patient reports that signs and symptoms have been present for 1 day and indicates a pain score of 5/10. MEDICAL/SURGICAL HISTORY: Carcinoma, breast. Hypertension. Diabetes. Appendectomy. Cholecyst ectomy. RADIATION DOSE: 86.27 CTDI (mGy) COMPARISON: No prior exams available for comparison. TECHNIQUE: Contiguous images in the axial and coronal planes were obtained using helical multirow de tector technique. Using automated exposure control and adjustment of the mA and/or kV according to p atient size, radiation dose was kept as low as reasonably achievable to obtain optimal diagnostic josh lity images. DICOM format image data is available electronically for review and comparison. FINDINGS: Orbits: The orbital and infraorbital osseous structures are intact. The retroconal structures have a normal configuration. No radiopaque foreign bodies are seen. Both globes are grossly intact. Nasal Bone: The nasal bone and maxillary spine are intact. Zygomatic Arches: Symmetric without evidence of fracture. Sinuses: There is chronic sinus disease in the right sphenoid sinus. There is some focal chronic sin us disease in the right ethmoid sinus. Otherwise, the paranasal sinuses are grossly clear. No air-flu id levels are demonstrated. Nasal Cavity: The nasal septum is intact and midline. The lacrimal ducts are intact. Soft Tissues: No radiopaque foreign bodies seen. No soft-tissue swelling is seen. Intracranial: No intracranial air seen. Cribriform Plate: Grossly intact. There is degenerative arthritis of both temporomandibular joints. CONCLUSION: 1. No acute bony fracture. 2. Chronic sinus disease in the right sphenoid and ethmoid sinuses. 3. 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 Electronically signed by: Prince Pena MD 02/20/2018 5:07 PM EST
--- NOTE | 2018-02-20 17:10 | CT ---
EXAM DATE: 02/20/2018 4:56 PM EST AGE/SEX: 77 years / Female INDICATIONS: TRauma, facial injury. CLINICAL DATA: This is the patient's initial encounter. Patient reports that signs and symptoms have been present for 1 day and indicates a pain score of 5/10. MEDICAL/SURGICAL HISTORY: Carcinoma, breast. Diabetes. Hypertension. Appendectomy. Cholecystecto my. RADIATION DOSE: 51.60 CTDI (mGy) COMPARISON: [facility], CT BRAIN W/O CONTRAST, 01/06/2016. . TECHNIQUE: CT of the head without contrast. Using automated exposure control and adjustment of the mA and/or kV according to patient size, radiation dose was kept as low as reasonably achievable to ob tain optimal diagnostic quality images. DICOM format image data is available electronically for revi ew and comparison. FINDINGS: Cerebrum: The ventricles are normal for age. Bilateral cortical atrophy and chronic white matter roland nges. These findings are stable compared to the prior study from 2016. No evidence of midline shift, mass lesion, hemorrhage or acute infarction. No extraaxial fluid collections are seen. Posterior Fossa: The cerebellum and brainstem are intact. The 4th ventricle is midline. The cerebe llopontine angle is unremarkable. Extracranial: The visualized portion of the orbits is intact. Skull: The calvaria is intact. No evidence of skull fracture. No significant changes compared to 2016. CONCLUSION: 1. No focal or acute intracranial hemorrhage. 2. Stable bilateral cortical atrophy and chronic white matter changes. . Electronically signed by: Prince Pena MD 02/20/2018 5:08 PM EST
[2018-02-20 17:52] LABS: Bilirubin,Urine Negative (Negative); Clarity,Urine Hazy (Clear); Color,Urine Yellow (Yellw/Straw); Glucose,Urine (UA) Negative (Negative); Hyaline Casts,Urine 1 /lpf (0-3); Leukocyte Esterase,Urine Negative (Negative); Mucus,Urine Few /lpf (Occasional); Nitrite,Urine Negative (Negative); Specific Gravity,Urine 1.019 (1.002-1.035); Squamous Epithelial Cell,Urine 3 /hpf (0-5)
[2018-02-20 18:00] LABS: Albumin 3.3 g/dL (3.4-5.0); Anion Gap 9 meq/L (5-15); Aspartate Aminotransferase 17 U/L (15-37); Blood Urea Nitrogen 16 mg/dL (7-18); Calcium 9.3 mg/dL (8.5-10.1); Carbon Dioxide 26.3 meq/L (21.0-32.0); Chloride 106 meq/L (98-107); Glomerular Filtration Rate 63 mL/min (>89); Glucose,Random 159 mg/dL (74-106); Potassium 3.6 meq/L (3.5-5.1); Sodium 141 meq/L (136-145)
[2018-02-20 18:01] LABS: Alanine Aminotransferase 30 U/L (10-53)
[2018-02-20 18:03] LABS: Alkaline Phosphatase 88 U/L (45-117); Total Protein 7.3 g/dL (6.4-8.2)
--- NOTE | 2018-02-20 19:28 | P.HPFP ---
History of Present Illness Primary Care Physician: Marshall Cali MD <Leonidas Cortes - 02/21/18 14:35> Marshall Cali MD <Liam Stanford - 02/21/18 05:07> History of Present Illness: Ms. Jackson is a 77-year-old female presenting to the ED with recent fall and subsequent left wrist fracture. Patient states that approximately 1330 this afternoon she was watching TV when she mary from a sitting position attempted to take 2 steps and then fell forward striking her L head against a chest of drawers after experiencing a short episode of dizziness. Patient states that she did not lose consciousness during the fall and fell onto her left outstretched arm and knee. She was unable to pick herself off the floor and began to scream for help. Her neighbor overheard and used her spare panchal to come a sister. [facility] was called and patient presented to ED. Patient endorsed with focal pain and her left upper extremity and left knee with full body tenderness. Patient was further evaluated with multiple imaging studies and found to have a nondisplaced fracture of the distal radius and ulna. Patient was then admitted as she is a unsafe discharge as she currently lives alone and has decreased mobility. Other than her body pain from the fall, patient has no other acute complaints denies any fevers, chills, shortness of breath, chest pain, NVD, abdominal pain, or calf tenderness at this time. Of note, patient unable to provide medications during medication reconciliation. Medication list obtained from prior hospital visits and their assistance of pharmacy in ED. also unsure if patient provided full past medical history as per previous chart review patient has reports of previous Sarah fundoplication and has been evaluated by GI for dysphasia issues. Patient also appears to be on letrozole without reporting a history of breast cancer. PMHx: Diabetes High blood pressure GERD Sleep Apnea Bladder incontinence Previous BL wrist fractures Medications: Unknown to patient PSHx: BL knee replacements L hip replacement Hysterectomy Cholecystectomy Appendectomy FMHx: Father - Lung cancer Mother - Breast Cancer Sister - Breast cancer Social: Live alone in the apartment. No home health aid or current PT. Tobacco - No reported history Alcohol - No reported history Illicit - No reported history <Liam Stanford - 02/21/18 05:07> - Diagnosis (1) Closed fracture distal radius and ulna (2) Hematoma of left lower extremity (3) Fall (4) Diabetes mellitus (5) Hypertension (6) GERD (gastroesophageal reflux disease) (7) Sleep apnea (8) Incontinence (9) Diabetic neuropathy (10) Nutrition, metabolism, and development symptoms (11) DVT prophylaxis <Leonidas Cortes - 02/21/18 14:35> (1) Closed fracture distal radius and ulna (2) Hematoma of left lower extremity (3) Fall (4) Diabetes mellitus (5) Hypertension (6) GERD (gastroesophageal reflux disease) (7) Sleep apnea (8) Incontinence (9) Diabetic neuropathy (10) Nutrition, metabolism, and development symptoms (11) DVT prophylaxis <[facility] 02/21/18 04:15> Review of Systems Constitutional: Reports body ache(s), Reports headache(s), Denies chills, Denies fever(s), Denies night sweats <[facility] 02/21/18 05:07> Eyes: Denies blurry vision <[facility] 02/21/18 05:07> Ears, Nose, Mouth, and Throat: Reports headache(s), Reports neck pain, Denies dizziness <[facility] 02/21/18 05:07> Cardiovascular: Denies chest pain, Denies lightheadedness <[facility] 09/03 05:07> Respiratory: Denies cough, Denies shortness of breath <[facility] 05:07> Gastrointestinal: Denies abdominal pain, Denies nausea, Denies vomiting < [facility] 02/21/18 05:07> Musculoskeletal: Reports abnormal walking, Reports back pain, Reports body aches , Reports joint pain, Reports numbness, Reports tingling <[facility] 09/03 05:07> Neurologic: Reports headache(s), Reports tingling/numbness/burning sensations <[facility] 02/21/18 05:07> Psychiatric: Denies anxiety, Denies confusion <[facility] 02/21/18 05:07> PMFSH - History History Provided By: [facility]27> - Medical History Medical History: Medical History (Last Reviewed 02/20/18 @ 16:02 by Dena Crawford) Wilkinson esophagus Breast cancer Cataracts, bilateral Constipation Depression Diabetes Diverticulosis Esophagitis GERD (gastroesophageal reflux disease) High cholesterol Hypertension Incontinence Osteoporosis Sleep apnea <Leonidas Cortes - 02/21/18 14:35> Medical History (Last Reviewed 02/20/18 @ 16:02 by Dena Crawford) Wilkinson esophagus Breast cancer Cataracts, bilateral Constipation Depression Diabetes Diverticulosis Esophagitis GERD (gastroesophageal reflux disease) High cholesterol Hypertension Incontinence Osteoporosis Sleep apnea <Liam Stanford - 02/20/18 19:27> - Surgical History Surgical History: Surgical History (Last Reviewed 02/20/18 @ 16:02 by Dena Crawford) H/O cardiac catheterization H/O total knee replacement History of appendectomy History of hip surgery History of lumbar surgery History of tonsillectomy Hx of cholecystectomy S/P wrist surgery <Leonidas Cortes - 02/21/18 14:35> Surgical History (Last Reviewed 02/20/18 @ 16:02 by Dena Crawford) H/O cardiac catheterization H/O total knee replacement History of appendectomy History of hip surgery History of lumbar surgery History of tonsillectomy Hx of cholecystectomy S/P wrist surgery <Liam Stanford [facility] 02/20/18 19:27> - Tobacco History Second Hand Smoke Exposure: No <Liam Stanford [facility] 02/20/18 19:27> Smoking Status: Never smoker <Liam Stanford [facility] 02/20/18 19:27> - Alcohol History How Often Do You Have a Drink Containing Alcohol: Never <Liam Stanford [facility] 02/20 19:27> - Substance Use History Substance History: No History of Abuse <Liam Stanford 02/20/18 19:27> - Travel History Recent Travel in the [facility] Within the Last 8 Weeks: No <Liam Stanford [facility] 19:27> - Immunization History Tetanus Immunization: >5 Years <Liam Stanford [facility] 02/20/18 19:27> Medications and Allergies Allergies Allergy/AdvReac Type Severity Reaction Status Date / Time adhesive Allergy Severe Rash Verified 02/20/18 15:19 gabapentin Allergy Severe Anaphylaxis Verified 02/20/18 15:19 Sulfa (Sulfonamide Allergy Severe RASH/SWELLI Verified 02/20/18 15:19 Antibiotics) NG codeine Allergy Mild RASH/SWELLI Verified 02/20/18 15:19 NG <Leonidas Cortes - 02/21/18 14:35> Home Medications Medication Instructions Recorded Confirmed Type aspirin [Enteric Coated Aspirin] 81 mg PO DAILY 02/05/18 02/20/18 History calcium carbonate-vitamin D3 600 mg PO DAILY 02/05/18 02/20/18 History [Calcium 600 + D(3)] carvedilol 3.125 mg PO BID 02/05/18 02/20/18 History letrozole 2.5 mg PO DAILY 02/05/18 02/20/18 History losartan-hydrochlorothiazide 1 tab PO DAILY 02/05/18 02/20/18 History magnesium oxide 400 mg PO DAILY 02/05/18 02/20/18 History pantoprazole 40 mg PO DAILY 02/05/18 02/20/18 History simvastatin 20 mg PO QPM 02/05/18 02/20/18 History venlafaxine 75 mg PO DAILY 02/05/18 02/20/18 History sitagliptin [Januvia] 50 mg PO DAILY 02/20/18 02/20/18 History <Leonidas Cortes - 02/21/18 14:35> Active Medications: Active Medications Al Hydroxide/Mg Hydroxide (Milk Of [employer] Liq) 30 ml PO Q12H PRN PRN Reason: Mild Constipation Aspirin (Ecotrin) 81 mg PO DAILY [facility] Last Admin: 02/21/18 09:10 Dose: 81 mg Bisacodyl (Dulcolax Supp) 10 mg RECTAL DAILY PRN PRN Reason: SEVERE CONSITIPATION Calcium/Vitamin D (Oscal With D 250/125 Mg) 2 tab PO DAILY [facility] Last Admin: 02/21/18 09:11 Dose: 2 tab Carvedilol (Coreg) 3.125 mg PO BID [facility] Last Admin: 02/21/18 09:12 Dose: 3.125 mg Dextrose (D50w Vial) 50 ml IV.PUSH UNSCH PRN PRN Reason: PER HYPOGLYCEMIA PROTOCOL Glucagon (Glucagon Inj) 1 mg OTHER PRN PRN PRN Reason: for Hypoglycemia Protocol Hydrochlorothiazide (Microzide) 12.5 mg PO DAILY [facility] Last Admin: 02/21/18 09:10 Dose: 12.5 mg Acetaminophen (Ofirmev Inj) 1,000 mg in 100 mls @ 400 mls/hr IV.SIG Q6H [facility] Stop: 12/06/18 16:14 Last Infusion: 02/21/18 13:36 Dose: Infused Sodium Chloride (Ns Inj) 1,000 mls @ 100 mls/hr IV.CONT .Q10H [facility] Last Admin: 02/21/18 10:13 Dose: 100 mls/hr Insulin Aspart (Novolog Insulin Correctional Sugar Inj) 0 unit SQ ACHS [facility]; Protocol Last Admin: 02/21/18 12:27 Dose: Not Given Lactulose (Lactulose Liq) 30 ml PO DAILY PRN PRN Reason: SEVERE CONSITIPATION Losartan Potassium (Cozaar) 100 mg PO DAILY [facility] Last Admin: 02/21/18 09:11 Dose: 100 mg Magnesium Oxide (Mag-Ox) 400 mg PO DAILY [facility] Last Admin: 02/21/18 09:10 Dose: 400 mg Naloxone HCl (Narcan Inj) 0.4 mg IV.PUSH UNSCH PRN PRN Reason: SEE LABEL COMMENTS Ondansetron HCl (Zofran Inj) 4 mg IV.PUSH Q6H PRN PRN Reason: nausea/vomiting Last Admin: 02/21/18 09:24 Dose: 4 mg Oxycodone HCl (Roxicodone) 5 mg PO Q4H PRN PRN Reason: PAIN SCALE 3 TO 5 Last Admin: 02/21/18 04:10 Dose: 5 mg Oxycodone HCl (Roxicodone) 10 mg PO Q4H PRN PRN Reason: PAIN SCALE 6 TO 10 Last Admin: 02/21/18 12:11 Dose: 10 mg Pantoprazole Sodium (Protonix) 40 mg PO DAILY [facility] Last Admin: 02/21/18 09:12 Dose: 40 mg Patient Own Medication ( Letrozole [Letrozole ] 2.5 Mg) 0 each PO DAILY [facility] Pravastatin Sodium (Pravachol) 40 mg PO HS [facility] Last Admin: 02/20/18 23:30 Dose: 40 mg Senna/Docusate Sodium (Ligia-Colace) 1 tab PO BID [facility] Last Admin: 02/21/18 09:11 Dose: Not Given Sennosides (Senokot) 17.2 mg PO Q12H PRN PRN Reason: Moderate Constipation Sodium Chloride (Ns Flush) 2 ml IV.FLUSH BID [facility] Last Admin: 02/21/18 09:12 Dose: 2 ml Sodium Chloride (Ns Flush) 2 ml IV.FLUSH PRN PRN PRN Reason: FLUSH AFTER USING IV ACCESS Sodium Chloride (Ns Flush) 2 ml IV.FLUSH BID [facility] Last Admin: 02/21/18 09:12 Dose: 2 ml Sodium Chloride (Ns Flush) 2 ml IV.FLUSH PRN PRN PRN Reason: FLUSH AFTER USING IV ACCESS Venlafaxine HCl (Effexor Xr) 75 mg PO DAILY [facility] Last Admin: 02/21/18 09:12 Dose: 75 mg <Leonidas Cortes - 02/21/18 14:35> Active Medications Sodium Chloride (Ns Flush) 2 ml IV.FLUSH BID [facility] Sodium Chloride (Ns Flush) 2 ml IV.FLUSH PRN PRN PRN Reason: FLUSH AFTER USING IV ACCESS <Liam Stanford - 02/20/18 19:27> Exam Vital signs: Vital Signs 02/20/18 15:20 02/20/18 16:15 02/20/18 18:28 Temperature 98 F 97.8 F Pulse Rate 73 76 Respiratory Rate 18 17 17 Blood Pressure 143/67 H 138/77 Pulse Oximetry 99 98 02/20/18 18:55 02/21/18 00:00 02/21/18 01:00 Temperature 97.6 F Pulse Rate 77 Respiratory Rate 18 20 16 Blood Pressure 128/58 L Pulse Oximetry 92 L 02/21/18 04:00 02/21/18 04:45 02/21/18 06:05 Temperature 97.6 F Pulse Rate 71 Respiratory Rate 16 16 16 Blood Pressure 116/56 L Pulse Oximetry 93 L 02/21/18 08:00 02/21/18 12:00 02/21/18 13:35 Temperature 97.8 F 98.0 F Pulse Rate 70 71 Respiratory Rate 16 18 16 Blood Pressure 128/66 136/78 Pulse Oximetry 88 L 90 L Intake & Output 02/20/18 02/21/18 02/21/18 18:59 06:59 18:59 Intake Total 1000 / 1000 560 / 560 1100 / 1100 Output Total 600 / 600 Balance 400 / 400 560 / 560 1100 / 1100 Weight 108.933 kg 122.47 kg Intake: IV 1000 / 1000 200 / 200 1100 / 1100 NS Inj 1,000 ML @ 100 mls/hr IV 1000 / 1000 .CONT .Q10H [facility] Rx#:[id number] Ofirmev Inj 1,000 mg In 100 ml 200 / 200 100 / 100 @ 400 mls/hr IV.SIG Q6H [facility] Rx# :[id number] NS Inj 1,000 ML @ 1000 mls/hr 1000 / 1000 IV.SIG [facility] Rx#:[id number] Oral 360 / 360 Output: Urine 600 / 600 Other: # Voids 1 3 Date of Last Bowel Movement 02/20/18 02/20/18 Weight On Admission 122.47 kg <Leonidas Cortes - 02/21/18 14:35> Vital Signs 02/20/18 15:20 02/20/18 16:15 02/20/18 18:28 Temperature 98 F 97.8 F Pulse Rate 73 76 Respiratory Rate 18 17 17 Blood Pressure 143/67 H 138/77 Pulse Oximetry 99 98 02/20/18 18:55 Temperature Pulse Rate Respiratory Rate 18 Blood Pressure Pulse Oximetry Intake & Output 02/20/18 02/20/18 02/21/18 06:59 18:59 06:59 Intake Total 1000 / 1000 Output Total 600 / 600 Balance 400 / 400 Weight 108.933 kg Intake: IV 1000 / 1000 NS Inj 1,000 ML @ 1000 mls/hr 1000 / 1000 IV.SIG [facility] Rx#:[id number] Output: Urine 600 / 600 Other: # Voids 1 <Liam Stanford - 02/20/18 19:27> Narrative: GENERAL: Elderly, morbidly obese female lying in bed in no acute distress watching television. SKIN: Warm and dry. No rash. Appropriate capillary refill. HEENT: Atraumatic, normocephalic with extraocular motions intact. No rhinorrhea. No visible lymphadenopathy or jugulovenous distension appreciated. No visualized scalp hematoma or other traumatic injury appreciated. Small area of ecchymosis near left lateral eye. Cervical neck motions intact and nonpainful. CARDIOVASCULAR: Regular rate and rhythm without obvious murmurs, gallops, or rubs. 2+ pulses in all four extremities. RESPIRATORY: Clear to auscultation bilaterally with no crackles, wheezes, or rhonchi. No increased work of breathing. GASTROINTESTINAL: Abdomen soft, non-tender, nondistended with positive bowel sounds. No masses appreciated. MUSCULOSKELETAL: No cyanosis or edema. No calf tenderness. LLE: Left lower extremity with patchy ecchymosis and slight erythema superior to the patella with palpable hematoma that is mildly tender to palpation. Area outlined in surgical marker and measured in total 9 x 12 cm. Area mildly warm to palpation. Patient able to flex and extend at the knee, however mildly limited due to pain. Sensation intact but patient endorses baseline diabetic neuropathy. Patient defers full knee exam at this time due to pain. LUE: Left upper extremity currently Antony wrapped with sugar tong splint in place. Patient able to move all 5 digits with intact sensation. Appropriate capillary refill. Patient able to adduct and abduct at the shoulder, but does endorse mild pain in the shoulder. Patient defers full shoulder exam at this time due to pain. NEURO/PSYCH: Afocal. Awake, alert, and oriented x3. Normal speech and judgement. <Liam Stanford H - 02/21/18 05:07> Results - Labs Result diagrams: 02/21/18 09:25 02/21/18 09:25 <Leonidas Cortes - 02/21/18 14:35> Abnormal lab results 02/20/18 02/20/18 02/20/18 Range/Units 15:00 15:00 15:00 RBC 3.81 L (4.00-5.30) mil/mm3 Hgb (11.6-15.3) gm/dL Hct (35.0-46.0) % Neut % (Auto) 73.7 H (16.0-70.0) % Neut # (Auto) 7.9 H (1.8-7.7) th/mm3 Estimated GFR 63 L (>89) mL/min POC Glucose (68-110) mg/dl Random Glucose 159 H (74-106) mg/dL Calcium (8.5-10.1) mg/dL Troponin I Less than 0.02 L (0.02-0.05) ng/mL Albumin 3.3 L (3.4-5.0) g/dL Vitamin D 25-Hydroxy (30-100) ng/mL Urine Clarity (Clear) Urine Mucus (Occasional) /lpf 02/20/18 02/20/18 02/21/18 Range/Units 16:30 23:35 09:19 RBC (4.00-5.30) mil/mm3 Hgb (11.6-15.3) gm/dL Hct (35.0-46.0) % Neut % (Auto) (16.0-70.0) % Neut # (Auto) (1.8-7.7) th/mm3 Estimated GFR (>89) mL/min POC Glucose 152 H 143 H (68-110) mg/dl Random Glucose (74-106) mg/dL Calcium (8.5-10.1) mg/dL Troponin I (0.02-0.05) ng/mL Albumin (3.4-5.0) g/dL Vitamin D 25-Hydroxy (30-100) ng/mL Urine Clarity Hazy H (Clear) Urine Mucus Few H (Occasional) /lpf 02/21/18 02/21/18 02/21/18 Range/Units 09:25 09:25 12:26 RBC 3.55 L (4.00-5.30) mil/mm3 Hgb 11.3 L (11.6-15.3) gm/dL Hct 34.5 L (35.0-46.0) % Neut % (Auto) (16.0-70.0) % Neut # (Auto) (1.8-7.7) th/mm3 Estimated GFR 73 L (>89) mL/min POC Glucose 146 H (68-110) mg/dl Random Glucose 141 H (74-106) mg/dL Calcium 7.9 L D (8.5-10.1) mg/dL Troponin I (0.02-0.05) ng/mL Albumin (3.4-5.0) g/dL Vitamin D 25-Hydroxy 23.3 L (30-100) ng/mL Urine Clarity (Clear) Urine Mucus (Occasional) /lpf Short CBC 02/20/18 02/21/18 Range/Units 15:00 09:25 WBC 10.7 9.0 (4.0-11.0) th/mm3 Hgb 12.4 11.3 L (11.6-15.3) gm/dL Hct 36.9 34.5 L (35.0-46.0) % Plt Count 246 242 (150-450) th/mm3 BMP 02/20/18 02/21/18 15:00 09:25 Sodium 141 140 Potassium 3.6 3.8 Chloride 106 106 Carbon Dioxide 26.3 26.8 BUN 16 14 Creatinine 0.87 0.76 Calcium 9.3 7.9 L D Cardiac Enzymes 02/20/18 02/21/18 Range/Units 15:00 09:25 Total Creatine Kinase 75 (26-192) U/L Troponin I Less than 0.02 L (0.02-0.05) ng/mL Liver Function 02/20/18 Range/Units 15:00 Total Bilirubin 0.3 (0.2-1.0) mg/dL AST 17 (15-37) U/L ALT 30 (10-53) U/L Alkaline Phosphatase 88 (45-117) U/L Albumin 3.3 L (3.4-5.0) g/dL Urine 02/20/18 Range/Units 16:30 Urine Color Yellow (Yellw/Straw) Urine Clarity Hazy H (Clear) Urine pH 5.0 (5.0-8.5) Ur Specific [place] 1.019 (1.002-1.035) Urine Protein Negative (Neg-Trace) mg/dL Urine Glucose (UA) Negative (Negative) mg/dL <Leonidas Cortes - 02/21/18 14:35> Abnormal lab results 02/20/18 02/20/18 02/20/18 Range/Units 15:00 15:00 15:00 RBC 3.81 L (4.00-5.30) mil/mm3 Neut % (Auto) 73.7 H (16.0-70.0) % Neut # (Auto) 7.9 H (1.8-7.7) th/mm3 Estimated GFR 63 L (>89) mL/min Random Glucose 159 H (74-106) mg/dL Troponin I Less than 0.02 L (0.02-0.05) ng/mL Albumin 3.3 L (3.4-5.0) g/dL Urine Clarity (Clear) Urine Mucus (Occasional) /lpf 02/20/18 Range/Units 16:30 RBC (4.00-5.30) mil/mm3 Neut % (Auto) (16.0-70.0) % Neut # (Auto) (1.8-7.7) th/mm3 Estimated GFR (>89) mL/min Random Glucose (74-106) mg/dL Troponin I (0.02-0.05) ng/mL Albumin (3.4-5.0) g/dL Urine Clarity Hazy H (Clear) Urine Mucus Few H (Occasional) /lpf Short CBC 02/20/18 Range/Units 15:00 WBC 10.7 (4.0-11.0) th/mm3 Hgb 12.4 (11.6-15.3) gm/dL Hct 36.9 (35.0-46.0) % Plt Count 246 (150-450) th/mm3 BMP 02/20/18 15:00 Sodium 141 Potassium 3.6 Chloride 106 Carbon Dioxide 26.3 BUN 16 Creatinine 0.87 Calcium 9.3 Cardiac Enzymes 02/20/18 Range/Units 15:00 Troponin I Less than 0.02 L (0.02-0.05) ng/mL Liver Function 02/20/18 Range/Units 15:00 Total Bilirubin 0.3 (0.2-1.0) mg/dL AST 17 (15-37) U/L ALT 30 (10-53) U/L Alkaline Phosphatase 88 (45-117) U/L Albumin 3.3 L (3.4-5.0) g/dL Urine 02/20/18 Range/Units 16:30 Urine Color Yellow (Yellw/Straw) Urine Clarity Hazy H (Clear) Urine pH 5.0 (5.0-8.5) Ur Specific [place] 1.019 (1.002-1.035) Urine Protein Negative (Neg-Trace) mg/dL Urine Glucose (UA) Negative (Negative) mg/dL <Liam Stanford H - 02/20/18 19:27> - Imaging Impressions Hip X-Ray 02/20/18 00:00 CONCLUSION: 1. Intact pelvis and left hip. 2. Healed left intertrochanteric fracture post nail and akosua fixation. Cervical Spine CT 02/20/18 15:28 CONCLUSION: 1. Stable osteopenia and degenerative changes are noted throughout the cervical spine. 2. Mild broad-based bulging with disc osteophyte complex at C5-6. 3. No significant changes are seen compared to the prior exam. Face CT 02/20/18 15:28 CONCLUSION: 1. No acute bony fracture. 2. Chronic sinus disease in the right sphenoid and ethmoid sinuses. 3. 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 Head CT 02/20/18 15:28 CONCLUSION: 1. No focal or acute intracranial hemorrhage. 2. Stable bilateral cortical atrophy and chronic white matter changes. . Knee X-Ray 02/20/18 15:28 CONCLUSION: 1. Status post left knee arthroplasty. No radiographic evidence for hardware failure. 2. No acute fracture. Shoulder X-Ray 02/20/18 15:28 CONCLUSION: Degenerative changes suggesting chronic rotator cuff tear. Fracture not appreciated. Wrist X-Ray 02/20/18 15:28 CONCLUSION: Nondisplaced fracture of the distal radius and ulna. Diffuse osteopenia Lower Extremity Ultrasound 02/21/18 00:00 CONCLUSION: There are 3 adjacent and potentially connecting heterogeneous fluid collections in the prepatellar region of the left knee. The appearance and recent trauma, these could represent Thomson-Brittani lesions or combination of a simple edema and hematomas. <Leonidas Cortes - 02/21/18 14:35> Impressions Cervical Spine CT 02/20/18 15:28 CONCLUSION: 1. Stable osteopenia and degenerative changes are noted throughout the cervical spine. 2. Mild broad-based bulging with disc osteophyte complex at C5-6. 3. No significant changes are seen compared to the prior exam. Face CT 02/20/18 15:28 CONCLUSION: 1. No acute bony fracture. 2. Chronic sinus disease in the right sphenoid and ethmoid sinuses. 3. 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 Head CT 02/20/18 15:28 CONCLUSION: 1. No focal or acute intracranial hemorrhage. 2. Stable bilateral cortical atrophy and chronic white matter changes. . Knee X-Ray 02/20/18 15:28 CONCLUSION: 1. Status post left knee arthroplasty. No radiographic evidence for hardware failure. 2. No acute fracture. Shoulder X-Ray 02/20/18 15:28 CONCLUSION: Degenerative changes suggesting chronic rotator cuff tear. Fracture not appreciated. Wrist X-Ray 02/20/18 15:28 CONCLUSION: Nondisplaced fracture of the distal radius and ulna. Diffuse osteopenia <Liam Stanford - 02/20/18 19:27> Caprini VTE Risk Assessment Caprini VTE Risk Assessment: Moderate/High Risk (score >= 2) <Liam Stanford - 02/21/18 05:07> Caprini Risk Assessment Model: Point Value = 1 Point Value = 2 Point Value = 3 Point Value = 5 Age 41-60 Minor surgery BMI > 25 kg/m2 Swollen legs Varicose veins or History of unexplained or recurrent spontaneous Oral contraceptives or hormone replacement Sepsis (< 1 month) Serious lung disease, including pneumonia (< 1 month) Abnormal pulmonary function Acute myocardial infarction Congestive heart failure (< 1 month) History of inflammatory bowel disease Medical patient at bed rest Age 61-74 Arthroscopic surgery Major open surgery (> 45 min) Laparoscopic surgery (> 45 min) Malignancy Confined to bed (> 72 hours) Immobilizing plaster cast Central venous access Age >= 75 History of VTE Family history of VTE Factor V Leiden Prothrombin [id number] Lupus anticoagulant Anticardiolipin antibodies Elevated serum homocysteine Heparin-induced thrombocytopenia Other congenital or acquired thrombophilia Stroke (< 1 month) Elective arthroplasty Hip, pelvis, or leg fracture Acute spinal cord injury (< 1 month) <Leonidas Cortes - 02/21/18 14:35> Point Value = 1 Point Value = 2 Point Value = 3 Point Value = 5 Age 41-60 Minor surgery BMI > 25 kg/m2 Swollen legs Varicose veins or History of unexplained or recurrent spontaneous Oral contraceptives or hormone replacement Sepsis (< 1 month) Serious lung disease, including pneumonia (< 1 month) Abnormal pulmonary function Acute myocardial infarction Congestive heart failure (< 1 month) History of inflammatory bowel disease Medical patient at bed rest Age 61-74 Arthroscopic surgery Major open surgery (> 45 min) Laparoscopic surgery (> 45 min) Malignancy Confined to bed (> 72 hours) Immobilizing plaster cast Central venous access Age >= 75 History of VTE Family history of VTE Factor V Leiden Prothrombin [id number] Lupus anticoagulant Anticardiolipin antibodies Elevated serum homocysteine Heparin-induced thrombocytopenia Other congenital or acquired thrombophilia Stroke (< 1 month) Elective arthroplasty Hip, pelvis, or leg fracture Acute spinal cord injury (< 1 month) <Liam Stanford - 02/20/18 19:27> Prophylaxis Regimen: Total Risk Factor Score Risk Level Prophylaxis Regimen 0-1 Low Early ambulation 2 Moderate Order ONE of the following: *Sequential Compression Device (SCD) *Heparin 5000 units SQ BID 3-4 Higher Order ONE of the following medications: *Heparin 5000 units SQ TID *Enoxaparin/Lovenox 40 mg SQ daily (WT < 150 kg, CrCl > 30 mL/min) *Enoxaparin/Lovenox 30 mg SQ daily (WT < 150 kg, CrCl > 10-29 mL/min) *Enoxaparin/Lovenox 30 mg SQ BID (WT < 150 kg, CrCl > 30 mL/min) AND/OR *Sequential Compression Device (SCD) 5 or more Highest Order ONE of the following medications: *Heparin 5000 units SQ TID (Preferred with Epidurals) *Enoxaparin/Lovenox 40 mg SQ daily (WT < 150 kg, CrCl > 30 mL/min) *Enoxaparin/Lovenox 30 mg SQ daily (WT < 150 kg, CrCl > 10-29 mL/min) *Enoxaparin/Lovenox 30 mg SQ BID (WT < 150 kg, CrCl > 30 mL/min) AND *Sequential Compression Device (SCD) <Leonidas Cortes - 02/21/18 14:35> Total Risk Factor Score Risk Level Prophylaxis Regimen 0-1 Low Early ambulation 2 Moderate Order ONE of the following: *Sequential Compression Device (SCD) *Heparin 5000 units SQ BID 3-4 Higher Order ONE of the following medications: *Heparin 5000 units SQ TID *Enoxaparin/Lovenox 40 mg SQ daily (WT < 150 kg, CrCl > 30 mL/min) *Enoxaparin/Lovenox 30 mg SQ daily (WT < 150 kg, CrCl > 10-29 mL/min) *Enoxaparin/Lovenox 30 mg SQ BID (WT < 150 kg, CrCl > 30 mL/min) AND/OR *Sequential Compression Device (SCD) 5 or more Highest Order ONE of the following medications: *Heparin 5000 units SQ TID (Preferred with Epidurals) *Enoxaparin/Lovenox 40 mg SQ daily (WT < 150 kg, CrCl > 30 mL/min) *Enoxaparin/Lovenox 30 mg SQ daily (WT < 150 kg, CrCl > 10-29 mL/min) *Enoxaparin/Lovenox 30 mg SQ BID (WT < 150 kg, CrCl > 30 mL/min) AND *Sequential Compression Device (SCD) <Liam Stanford - 02/20/18 19:27> Assessment and Plan - Assessment (1) Closed fracture distal radius and ulna Code(s): S52.509A - Unspecified fracture of the lower end of unspecified radius , initial encounter for closed fracture; S52.609A - Unspecified fracture of lower end of unspecified ulna, initial encounter for closed fracture Status: Acute (2) Hematoma of left lower extremity Code(s): S80.12XA - Contusion of left lower leg, initial encounter Status: Acute (3) Fall Code(s): W19.XXXA - Unspecified fall, initial encounter Status: Acute (4) Diabetes mellitus Code(s): E11.9 - Type 2 diabetes mellitus without complications Status: Acute (5) Hypertension Code(s): I10 - Essential (primary) hypertension Status: Acute (6) GERD (gastroesophageal reflux disease) Code(s): K21.9 - Gastro-esophageal reflux disease without esophagitis Status: Acute (7) Sleep apnea Code(s): G47.30 - Sleep apnea, unspecified Status: Acute (8) Incontinence Code(s): R32 - Unspecified urinary incontinence Status: Acute (9) Diabetic neuropathy Code(s): E11.40 - Type 2 diabetes mellitus with diabetic neuropathy, unspecified Status: Acute (10) Nutrition, metabolism, and development symptoms Code(s): R63.8 - Other symptoms and signs concerning food and fluid intake Status: Acute (11) DVT prophylaxis Status: Acute <Leonidas Cortes - 02/21/18 14:35> (1) Closed fracture distal radius and ulna Code(s): S52.509A - Unspecified fracture of the lower end of unspecified radius , initial encounter for closed fracture; S52.609A - Unspecified fracture of lower end of unspecified ulna, initial encounter for closed fracture Status: Acute Plan: Patient admitted after a fall onto the left side is and found to have distal radius and ulnar fractures. Left wrist x-rays: Nondisplaced fracture of the distal radius and ulna. Diffuse osteopenia. Left shoulder x-rays: Degenerative changes suggesting chronic rotator cuff tear. Fracture not appreciated. Cervical spine CT: Stable osteopenia and degenerative changes throughout cervical spine. Mild broad-based bulging with disc osteophyte complex at C5- C6. No significant changes compared to prior exam. Vitamin D level ordered Physical therapy and occupational therapy ordered Medications: Patient administered [place] medication in the ER Patient started on IV Tylenol 1 g every 6 hours Roxicodone as needed per pain scale Constipation protocol Continue home calcium, vitamin D, and magnesium (2) Hematoma of left lower extremity Code(s): S80.12XA - Contusion of left lower leg, initial encounter Status: Acute Plan: Patient with fall on the left side found to have suprapatellar hematoma on exam. Left knee x-ray: Status post left knee arthroplasty with no radiographic evidence of hardware failure. No acute fracture. Soft tissue hematoma in the suprapatellar region. Left knee ultrasound ordered Medications: Please see plan as above (3) Fall Code(s): W19.XXXA - Unspecified fall, initial encounter Status: Acute Plan: Patient admitted for fall on the left side after episode of dizziness without vertigo. Patient admitted as patient lives alone and is with new fracture and decreased mobility concerning for unsafe discharge. Head CT: No focal or acute intracranial hemorrhage. Stable bilateral cortical atrophy and chronic white matter changes. Facial CT: No acute bony fracture. Chronic sinus disease in the right sphenoid and ethmoid sinuses. 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 Hip x-rays: Intact pelvis and left hip. Healed left intratrochanteric fracture post nail and akosua fixation. CBC: Within normal limits with H/H of 12.4/36.9 CMP: Electrolytes within normal limits with creatinine of 0.87 and EGFR of 63, LFTs within normal limits Orthostatic vital signs ordered PT and OT ordered (4) Diabetes mellitus Code(s): E11.9 - Type 2 diabetes mellitus without complications Status: Acute Plan: Patient with history of type 2 diabetes mellitus Medications: Hold home sitagliptin Sliding scale ordered per protocol Continue home aspirin and simvastatin (5) Hypertension Code(s): I10 - Essential (primary) hypertension Status: Acute Plan: Patient with history of hypertension Medications: Continue home losartanhydrochlorothiazide and carvedilol (6) GERD (gastroesophageal reflux disease) Code(s): K21.9 - Gastro-esophageal reflux disease without esophagitis Status: Acute Plan: Patient with history of gastroesophageal reflux disease Medications: Continue home pantoprazole 40 mg daily (7) Sleep apnea Code(s): G47.30 - Sleep apnea, unspecified Status: Acute Plan: Patient with history of sleep apnea Patient did not bring home machine with her to the hospital Discussed with respiratory therapy of possible assistance during hospitalization Encouraged patient to contact neighbor/friend to obtain her machine if patient is admitted for prolonged hospital stay (8) Incontinence Code(s): R32 - Unspecified urinary incontinence Status: Acute Plan: Patient with history of incontinence UA: Negative (9) Diabetic neuropathy Code(s): E11.40 - Type 2 diabetes mellitus with diabetic neuropathy, unspecified Status: Acute Plan: Patient with history of diabetic neuropathy Medications: Continue home venlafaxine Patient allergic to gabapentin (10) Nutrition, metabolism, and development symptoms Code(s): R63.8 - Other symptoms and signs concerning food and fluid intake Status: Acute Plan: Fluids: Tolerating oral fluids well, appears well-hydrated Electrolytes: No acute abnormalities, continue to monitor Diet: Diabetic diet as tolerated; patient to be n.p.o. at midnight if possible procedure as needed Prophylaxis: Constipation protocol, Roxicodone for pain, zofran for nausea/ vomiting PT/OT ordered Case management consulted to assist with placement (11) DVT prophylaxis Status: Acute Plan: Defer medical prophylaxis due to hematoma and likely discharge tomorrow Plan for medical prophylaxis with prolonged hospital stay SCDs ordered <Liam Stanford - 02/21/18 04:15> - Attending Attestation See the residents documentation for details. I saw and evaluated the patient regarding the panchal portions of this evaluation and agree with the residents findings and plans as written. Parts of this note were created using [employer] voice recognition software program. While efforts were made to correct any mistakes made by this software, some mistakes, errors, and omissions may remain in the final note that were not caught when the note was originally created. Plan of care was discussed and agreed upon with the patient as specifically documented in the above note. An opportunity to ask questions with explanation was provided. Patient voiced understanding on all information reviewed and discussed. <Leonidas Cortes - 02/21/18 14:35> <Liam Stanford - Last Filed: 02/21/18 04:15> (1) Closed fracture distal radius and ulna Qualifiers: Encounter type: initial encounter Laterality: left Qualified Code(s): S52.502A - Unspecified fracture of the lower end of left radius, initial encounter for closed fracture; S52.602A - Unspecified fracture of lower end of left ulna, initial encounter for closed fracture (2) Hematoma of left lower extremity Qualifiers: Encounter type: initial encounter Qualified Code(s): S80.12XA - Contusion of left lower leg, initial encounter (3) Fall Qualifiers: Encounter type: initial encounter Qualified Code(s): W19.XXXA - Unspecified fall, initial encounter <Leonidas Cortes - Last Filed: 02/21/18 14:35> (1) Closed fracture distal radius and ulna Qualifiers: Encounter type: initial encounter Laterality: left Qualified Code(s): S52.502A - Unspecified fracture of the lower end of left radius, initial encounter for closed fracture; S52.602A - Unspecified fracture of lower end of left ulna, initial encounter for closed fracture (2) Hematoma of left lower extremity Qualifiers: Encounter type: initial encounter Qualified Code(s): S80.12XA - Contusion of left lower leg, initial encounter (3) Fall Qualifiers: Encounter type: initial encounter Qualified Code(s): W19.XXXA - Unspecified fall, initial encounter <Liam Stanford - Last Filed: 02/21/18 04:15> (1) Closed fracture distal radius and ulna Qualifiers: Encounter type: initial encounter Laterality: left Qualified Code(s): S52.502A - Unspecified fracture of the lower end of left radius, initial encounter for closed fracture; S52.602A - Unspecified fracture of lower end of left ulna, initial encounter for closed fracture (2) Hematoma of left lower extremity Qualifiers: Encounter type: initial encounter Qualified Code(s): S80.12XA - Contusion of left lower leg, initial encounter (3) Fall Qualifiers: Encounter type: initial encounter Qualified Code(s): W19.XXXA - Unspecified fall, initial encounter <CortesLeonidas - Last Filed: 02/21/18 14:35> (1) Closed fracture distal radius and ulna Qualifiers: Encounter type: initial encounter Laterality: left Qualified Code(s): S52.502A - Unspecified fracture of the lower end of left radius, initial encounter for closed fracture; S52.602A - Unspecified fracture of lower end of left ulna, initial encounter for closed fracture (2) Hematoma of left lower extremity Qualifiers: Encounter type: initial encounter Qualified Code(s): S80.12XA - Contusion of left lower leg, initial encounter (3) Fall Qualifiers: Encounter type: initial encounter Qualified Code(s): W19.XXXA - Unspecified fall, initial encounter
--- NOTE | 2018-02-20 20:33 | XR ---
EXAM DATE: 02/20/2018 8:29 PM EST AGE/SEX: 77 years / Female INDICATIONS: Patient complains of left hip pain post fall. CLINICAL DATA: This is the patient's initial encounter. Patient reports that signs and symptoms have been present for 1 day and indicates a pain score of 8/10. MEDICAL/SURGICAL HISTORY: None. . Left hip ORIF. COMPARISON: [facility] – [place], FEMUR LEFT (AP & LAT/2VWS), 01/06/2016. . FINDINGS: No acute fracture or subluxation is demonstrated of the left hip. Remote changes of the nail and akosua fixation of a intertrochanteric fracture again noted, healed in no rmal alignment. No evidence of hardware failure or loosening. The bony pelvis is intact and has normal morphology. CONCLUSION: 1. Intact pelvis and left hip. 2. Healed left intertrochanteric fracture post nail and akosua fixation. Electronically signed by: Slava Hurt MD 02/20/2018 8:32 PM EST
[2018-02-20] MEDS ORDERED: Naloxone Inj 0.4 MG/ML Vial IV.PUSH PRN ×2 (21:53→21:55)
[2018-02-20] MEDS ORDERED: Dextrose 50% in Water 50 ML Vial IV.PUSH PRN (22:25)
[2018-02-21] MEDS: Sod Chloride 0.9% Inj 1,000 ML IV.CONT SCH ×3 (00:15→20:49)
[2018-02-21] MEDS ORDERED: Bisacodyl 10 MG Supp RECTAL PRN (05:06)
[2018-02-21] MEDS ORDERED: Non-Formulary Drug (Losartan-Hydrochlorothiazide [Losartan-Hydrochlorothiazide] 1 TAB) PO SCH (09:00)
[2018-02-21] MEDS ORDERED: LETROZOLE 2.5 MG PO SCH (09:00)
[2018-02-21] MEDS: Magnesium Oxide 400 MG Tablet PO SCH (09:10)
[2018-02-21] MEDS: Senna/Docusate Sodium 8.6/50 MG Tablet PO SCH ×2 (09:11→20:48)
[2018-02-21] MEDS: Calcium/Vitamin D 250/125 MG Tablet PO SCH (09:11)
[2018-02-21] MEDS: Venlafaxine XR 75 MG Capsule PO SCH (09:12)
--- NOTE | 2018-02-21 09:14 | US ---
EXAM DATE: 02/21/2018 8:54 AM EST AGE/SEX: 77 years / Female INDICATIONS: Left knee hematoma. Status post fall. CLINICAL DATA: This is the patient's subsequent encounter. Patient reports that signs and symptoms h ave been present for 1 day and indicates a pain score of 5/10. MEDICAL/SURGICAL HISTORY: . Carcinoma, breast. Diabetes. Hypertension. . Appendectomy. Cholecy stectomy. Left knee arthroplasty. [place] [facility] [place] 4V[place]/20/2018. . FINDINGS: Grayscale and Doppler ultrasound imaging of the left knee was performed in the prepatellar region. Th ere are 3 hypoechoic to anechoic complex fluid collections identified. The more inferior measures 6.1 x 5.1 x 0.9 cm, the more superior measures 4.6 x 4.6 x 0.6 cm and the more medial aspect measures 2. 1 x 3.6 x 0.8 cm. And there is no increased color Doppler signal. CONCLUSION: There are 3 adjacent and potentially connecting heterogeneous fluid collections in the prepatellar re gion of the left knee. The appearance and recent trauma, these could represent Thomson-Brittani lesions or combination of a simple edema and hematomas. Electronically signed by: Slava Reynoso MD 02/21/2018 9:13 AM EST
[2018-02-21] MEDS: Insulin NovoLOG Aspart Correctional Sugar Inj SQ SCH ×4 (09:19→22:11)
[2018-02-21 10:52] LABS: Baso # (Auto) 0.1 th/mm3 (0.0-0.2); Baso % (Auto) 0.8 % (0.0-2.0); Eos # (Auto) 0.3 th/mm3 (0.0-0.4); Hematocrit 34.5 % (35.0-46.0); Hemoglobin 11.3 gm/dL (11.6-15.3); Lymph # (Auto) 2.3 th/mm3 (1.0-4.8); Mean Corpuscular HGB Conc 32.6 % (32.0-36.0); Mean Corpuscular Hemoglobin 31.7 pg (27.0-34.0); Mean Corpuscular Volume 97.1 fL (80.0-100.0); Mean Platelet Volume 7.8 fL (7.0-11.0); Mono # (Auto) 0.6 th/mm3 (0.0-0.9); Mono % (Auto) 6.9 % (0.0-8.0); Neut # (Auto) 5.7 th/mm3 (1.8-7.7); Neut % (Auto) 63.3 % (16.0-70.0); Platelet Count 242 th/mm3 (150-450); Red Blood Count 3.55 mil/mm3 (4.00-5.30); Red Cell Distribution Width 13.9 % (11.6-17.2)
[2018-02-21 11:16] LABS: Calcium 7.9 mg/dL (8.5-10.1); Carbon Dioxide 26.8 meq/L (21.0-32.0); Potassium 3.8 meq/L (3.5-5.1)
--- NOTE | 2018-02-21 12:09 | P.PNFP ---
Subjective Interval history: Patient seen and examined this morning. Patient reports continued pain in her left knee. Notes her bruising on her left knee is larger. Patient denies nausea, vomiting, fever, chills abdominal pain, chest pain, shortness of breath, lightheadedness, dizziness. Patient reports her left arm continues to have some pain, is improved. No numbness or tingling in her fingers. No acute events overnight. <Moris Moore - 02/21/18 12:33> Results - Labs Result diagrams: 02/21/18 09:25 02/21/18 09:25 <Leonidas Cortes - 02/21/18 14:46> Abnormal lab results 02/20/18 02/20/18 02/20/18 Range/Units 15:00 15:00 15:00 RBC 3.81 L (4.00-5.30) mil/mm3 Hgb (11.6-15.3) gm/dL Hct (35.0-46.0) % Neut % (Auto) 73.7 H (16.0-70.0) % Neut # (Auto) 7.9 H (1.8-7.7) th/mm3 Estimated GFR 63 L (>89) mL/min POC Glucose (68-110) mg/dl Random Glucose 159 H (74-106) mg/dL Calcium (8.5-10.1) mg/dL Troponin I Less than 0.02 L (0.02-0.05) ng/mL Albumin 3.3 L (3.4-5.0) g/dL Vitamin D 25-Hydroxy (30-100) ng/mL Urine Clarity (Clear) Urine Mucus (Occasional) /lpf 02/20/18 02/20/18 02/21/18 Range/Units 16:30 23:35 09:19 RBC (4.00-5.30) mil/mm3 Hgb (11.6-15.3) gm/dL Hct (35.0-46.0) % Neut % (Auto) (16.0-70.0) % Neut # (Auto) (1.8-7.7) th/mm3 Estimated GFR (>89) mL/min POC Glucose 152 H 143 H (68-110) mg/dl Random Glucose (74-106) mg/dL Calcium (8.5-10.1) mg/dL Troponin I (0.02-0.05) ng/mL Albumin (3.4-5.0) g/dL Vitamin D 25-Hydroxy (30-100) ng/mL Urine Clarity Hazy H (Clear) Urine Mucus Few H (Occasional) /lpf 02/21/18 02/21/18 02/21/18 Range/Units 09:25 09:25 12:26 RBC 3.55 L (4.00-5.30) mil/mm3 Hgb 11.3 L (11.6-15.3) gm/dL Hct 34.5 L (35.0-46.0) % Neut % (Auto) (16.0-70.0) % Neut # (Auto) (1.8-7.7) th/mm3 Estimated GFR 73 L (>89) mL/min POC Glucose 146 H (68-110) mg/dl Random Glucose 141 H (74-106) mg/dL Calcium 7.9 L D (8.5-10.1) mg/dL Troponin I (0.02-0.05) ng/mL Albumin (3.4-5.0) g/dL Vitamin D 25-Hydroxy 23.3 L (30-100) ng/mL Urine Clarity (Clear) Urine Mucus (Occasional) /lpf Short CBC 02/20/18 02/21/18 Range/Units 15:00 09:25 WBC 10.7 9.0 (4.0-11.0) th/mm3 Hgb 12.4 11.3 L (11.6-15.3) gm/dL Hct 36.9 34.5 L (35.0-46.0) % Plt Count 246 242 (150-450) th/mm3 [facility] 02/20/18 02/21/18 15:00 09:25 Sodium 141 140 Potassium 3.6 3.8 Chloride 106 106 Carbon Dioxide 26.3 26.8 BUN 16 14 Creatinine 0.87 0.76 Calcium 9.3 7.9 L D Cardiac Enzymes 02/20/18 02/21/18 Range/Units 15:00 09:25 Total Creatine Kinase 75 (26-192) U/L Troponin I Less than 0.02 L (0.02-0.05) ng/mL Liver Function 02/20/18 Range/Units 15:00 Total Bilirubin 0.3 (0.2-1.0) mg/dL AST 17 (15-37) U/L ALT 30 (10-53) U/L Alkaline Phosphatase 88 (45-117) U/L Albumin 3.3 L (3.4-5.0) g/dL Urine 02/20/18 Range/Units 16:30 Urine Color Yellow (Yellw/Straw) Urine Clarity Hazy H (Clear) Urine pH 5.0 (5.0-8.5) Ur Specific [place] 1.019 (1.002-1.035) Urine Protein Negative (Neg-Trace) mg/dL Urine Glucose (UA) Negative (Negative) mg/dL <Leonidas Cortes - 02/21/18 14:46> Abnormal lab results 02/20/18 02/20/18 02/20/18 Range/Units 15:00 15:00 15:00 RBC 3.81 L (4.00-5.30) mil/mm3 Hgb (11.6-15.3) gm/dL Hct (35.0-46.0) % Neut % (Auto) 73.7 H (16.0-70.0) % Neut # (Auto) 7.9 H (1.8-7.7) th/mm3 Estimated GFR 63 L (>89) mL/min POC Glucose (68-110) mg/dl Random Glucose 159 H (74-106) mg/dL Calcium (8.5-10.1) mg/dL Troponin I Less than 0.02 L (0.02-0.05) ng/mL Albumin 3.3 L (3.4-5.0) g/dL Vitamin D 25-Hydroxy (30-100) ng/mL Urine Clarity (Clear) Urine Mucus (Occasional) /lpf 02/20/18 02/20/18 02/21/18 Range/Units 16:30 23:35 09:19 RBC (4.00-5.30) mil/mm3 Hgb (11.6-15.3) gm/dL Hct (35.0-46.0) % Neut % (Auto) (16.0-70.0) % Neut # (Auto) (1.8-7.7) th/mm3 Estimated GFR (>89) mL/min POC Glucose 152 H 143 H (68-110) mg/dl Random Glucose (74-106) mg/dL Calcium (8.5-10.1) mg/dL Troponin I (0.02-0.05) ng/mL Albumin (3.4-5.0) g/dL Vitamin D 25-Hydroxy (30-100) ng/mL Urine Clarity Hazy H (Clear) Urine Mucus Few H (Occasional) /lpf 02/21/18 02/21/18 Range/Units 09:25 09:25 RBC 3.55 L (4.00-5.30) mil/mm3 Hgb 11.3 L (11.6-15.3) gm/dL Hct 34.5 L (35.0-46.0) % Neut % (Auto) (16.0-70.0) % Neut # (Auto) (1.8-7.7) th/mm3 Estimated GFR 73 L (>89) mL/min POC Glucose (68-110) mg/dl Random Glucose 141 H (74-106) mg/dL Calcium 7.9 L D (8.5-10.1) mg/dL Troponin I (0.02-0.05) ng/mL Albumin (3.4-5.0) g/dL Vitamin D 25-Hydroxy 23.3 L (30-100) ng/mL Urine Clarity (Clear) Urine Mucus (Occasional) /lpf Short CBC 02/20/18 02/21/18 Range/Units 15:00 09:25 WBC 10.7 9.0 (4.0-11.0) th/mm3 Hgb 12.4 11.3 L (11.6-15.3) gm/dL Hct 36.9 34.5 L (35.0-46.0) % Plt Count 246 242 (150-450) th/mm3 BMP 02/20/18 02/21/18 15:00 09:25 Sodium 141 140 Potassium 3.6 3.8 Chloride 106 106 Carbon Dioxide 26.3 26.8 BUN 16 14 Creatinine 0.87 0.76 Calcium 9.3 7.9 L D Cardiac Enzymes 02/20/18 Range/Units 15:00 Troponin I Less than 0.02 L (0.02-0.05) ng/mL Liver Function 02/20/18 Range/Units 15:00 Total Bilirubin 0.3 (0.2-1.0) mg/dL AST 17 (15-37) U/L ALT 30 (10-53) U/L Alkaline Phosphatase 88 (45-117) U/L Albumin 3.3 L (3.4-5.0) g/dL Urine 02/20/18 Range/Units 16:30 Urine Color Yellow (Yellw/Straw) Urine Clarity Hazy H (Clear) Urine pH 5.0 (5.0-8.5) Ur Specific [place] 1.019 (1.002-1.035) Urine Protein Negative (Neg-Trace) mg/dL Urine Glucose (UA) Negative (Negative) mg/dL <Moris Moore - 02/21/18 12:09> - Imaging Impressions Hip X-Ray 02/20/18 00:00 CONCLUSION: 1. Intact pelvis and left hip. 2. Healed left intertrochanteric fracture post nail and akosua fixation. Cervical Spine CT 02/20/18 15:28 CONCLUSION: 1. Stable osteopenia and degenerative changes are noted throughout the cervical spine. 2. Mild broad-based bulging with disc osteophyte complex at C5-6. 3. No significant changes are seen compared to the prior exam. Face CT 02/20/18 15:28 CONCLUSION: 1. No acute bony fracture. 2. Chronic sinus disease in the right sphenoid and ethmoid sinuses. 3. 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 Head CT 02/20/18 15:28 CONCLUSION: 1. No focal or acute intracranial hemorrhage. 2. Stable bilateral cortical atrophy and chronic white matter changes. . Knee X-Ray 02/20/18 15:28 CONCLUSION: 1. Status post left knee arthroplasty. No radiographic evidence for hardware failure. 2. No acute fracture. Shoulder X-Ray 02/20/18 15:28 CONCLUSION: Degenerative changes suggesting chronic rotator cuff tear. Fracture not appreciated. Wrist X-Ray 02/20/18 15:28 CONCLUSION: Nondisplaced fracture of the distal radius and ulna. Diffuse osteopenia Lower Extremity Ultrasound 02/21/18 00:00 CONCLUSION: There are 3 adjacent and potentially connecting heterogeneous fluid collections in the prepatellar region of the left knee. The appearance and recent trauma, these could represent Thomson-Brittani lesions or combination of a simple edema and hematomas. <Leonidas Cortes - 02/21/18 14:46> Impressions Hip X-Ray 02/20/18 00:00 CONCLUSION: 1. Intact pelvis and left hip. 2. Healed left intertrochanteric fracture post nail and akosua fixation. Cervical Spine CT 02/20/18 15:28 CONCLUSION: 1. Stable osteopenia and degenerative changes are noted throughout the cervical spine. 2. Mild broad-based bulging with disc osteophyte complex at C5-6. 3. No significant changes are seen compared to the prior exam. Face CT 02/20/18 15:28 CONCLUSION: 1. No acute bony fracture. 2. Chronic sinus disease in the right sphenoid and ethmoid sinuses. 3. 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 Head CT 02/20/18 15:28 CONCLUSION: 1. No focal or acute intracranial hemorrhage. 2. Stable bilateral cortical atrophy and chronic white matter changes. . Knee X-Ray 02/20/18 15:28 CONCLUSION: 1. Status post left knee arthroplasty. No radiographic evidence for hardware failure. 2. No acute fracture. Shoulder X-Ray 02/20/18 15:28 CONCLUSION: Degenerative changes suggesting chronic rotator cuff tear. Fracture not appreciated. Wrist X-Ray 02/20/18 15:28 CONCLUSION: Nondisplaced fracture of the distal radius and ulna. Diffuse osteopenia Lower Extremity Ultrasound 02/21/18 00:00 CONCLUSION: There are 3 adjacent and potentially connecting heterogeneous fluid collections in the prepatellar region of the left knee. The appearance and recent trauma, these could represent Thomson-Brittani lesions or combination of a simple edema and hematomas. <Moris Moore - 02/21/18 12:09> Physical Exam Vital signs: Vital Signs 02/20/18 15:20 02/20/18 16:15 02/20/18 18:28 Temperature 98 F 97.8 F Pulse Rate 73 76 Respiratory Rate 18 17 17 Blood Pressure 143/67 H 138/77 Pulse Oximetry 99 98 02/20/18 18:55 02/21/18 00:00 02/21/18 01:00 Temperature 97.6 F Pulse Rate 77 Respiratory Rate 18 20 16 Blood Pressure 128/58 L Pulse Oximetry 92 L 02/21/18 04:00 02/21/18 04:45 02/21/18 06:05 Temperature 97.6 F Pulse Rate 71 Respiratory Rate 16 16 16 Blood Pressure 116/56 L Pulse Oximetry 93 L 02/21/18 08:00 02/21/18 12:00 02/21/18 13:35 Temperature 97.8 F 98.0 F Pulse Rate 70 71 Respiratory Rate 16 18 16 Blood Pressure 128/66 136/78 Pulse Oximetry 88 L 90 L Intake & Output 02/20/18 02/21/18 02/21/18 18:59 06:59 18:59 Intake Total 1000 / 1000 560 / 560 1100 / 1100 Output Total 600 / 600 Balance 400 / 400 560 / 560 1100 / 1100 Weight 108.933 kg 122.47 kg Intake: IV 1000 / 1000 200 / 200 1100 / 1100 NS Inj 1,000 ML @ 100 mls/hr IV 1000 / 1000 .CONT .Q10H SAHIL Rx#:[id number] Ofirmev Inj 1,000 mg In 100 ml 200 / 200 100 / 100 @ 400 mls/hr IV.SIG Q6H SAHIL Rx# :[id number] NS Inj 1,000 ML @ 1000 mls/hr 1000 / 1000 IV.SIG BOLUS SAHIL Rx#:[id number] Oral 360 / 360 Output: Urine 600 / 600 Other: # Voids 1 3 Date of Last Bowel Movement 02/20/18 02/20/18 Weight On Admission 122.47 kg <Leonidas Cortes - 02/21/18 14:46> Vital Signs 02/20/18 15:20 02/20/18 16:15 02/20/18 18:28 Temperature 98 F 97.8 F Pulse Rate 73 76 Respiratory Rate 18 17 17 Blood Pressure 143/67 H 138/77 Pulse Oximetry 99 98 02/20/18 18:55 02/21/18 00:00 02/21/18 01:00 Temperature 97.6 F Pulse Rate 77 Respiratory Rate 18 20 16 Blood Pressure 128/58 L Pulse Oximetry 92 L 02/21/18 04:00 02/21/18 04:45 02/21/18 06:05 Temperature 97.6 F Pulse Rate 71 Respiratory Rate 16 16 16 Blood Pressure 116/56 L Pulse Oximetry 93 L 02/21/18 08:00 Temperature 97.8 F Pulse Rate 70 Respiratory Rate 16 Blood Pressure 128/66 Pulse Oximetry 88 L Intake & Output 02/20/18 02/21/18 02/21/18 18:59 06:59 18:59 Intake Total 1000 / 1000 560 / 560 1000 / 1000 Output Total 600 / 600 Balance 400 / 400 560 / 560 1000 / 1000 Weight 108.933 kg 122.47 kg Intake: IV 1000 / 1000 200 / 200 1000 / 1000 NS Inj 1,000 ML @ 100 mls/hr IV 1000 / 1000 .CONT .Q10H SAHIL Rx#:[id number] Ofirmev Inj 1,000 mg In 100 ml 200 / 200 @ 400 mls/hr IV.SIG Q6H SAHIL Rx# :[id number] NS Inj 1,000 ML @ 1000 mls/hr 1000 / 1000 IV.SIG BOLUS SAHIL Rx#:[id number] Oral 360 / 360 Output: Urine 600 / 600 Other: # Voids 1 3 Date of Last Bowel Movement 02/20/18 02/20/18 Weight On Admission 122.47 kg <Moris Moore - 02/21/18 12:09> Narrative: GENERAL: Laying in bed, no acute distress SKIN: Warm and dry. Ecchymoses overlying the left patella, extended since admission. HEAD: Atraumatic. Normocephalic. EYES: Pupils equal and round. No scleral icterus. No injection or drainage. ENT: No nasal bleeding or discharge. Mucous membranes pink and moist. NECK: Trachea midline. No JVD. CARDIOVASCULAR: Regular rate and rhythm. RESPIRATORY: No accessory muscle use. Clear to auscultation. Breath sounds equal bilaterally. GASTROINTESTINAL: Abdomen soft, non-tender, nondistended. Hepatic and splenic margins not palpable. MUSCULOSKELETAL: Extremities without clubbing, cyanosis, or edema. No obvious deformities. Left upper extremity with sensation intact, able to wiggle fingers , splint clean/dry/intact. Left lower extremity with ecchymoses prepatellar. Ecchymosis extending beyond marked off area yesterday. Induration extending beyond the marked off area yesterday. No warmth or erythema. NEUROLOGICAL: Awake and alert. No obvious cranial nerve deficits. Motor grossly within normal limits. Five out of 5 muscle strength in the arms and legs. Normal speech. <Moris Moore - 02/21/18 13:47> Assessment and Plan - Assessment (1) Closed fracture distal radius and ulna Code(s): S52.509A - Unspecified fracture of the lower end of unspecified radius , initial encounter for closed fracture; S52.609A - Unspecified fracture of lower end of unspecified ulna, initial encounter for closed fracture Status: Acute (2) Hematoma of left lower extremity Code(s): S80.12XA - Contusion of left lower leg, initial encounter Status: Acute (3) Fall Code(s): W19.XXXA - Unspecified fall, initial encounter Status: Acute (4) Diabetes mellitus Code(s): E11.9 - Type 2 diabetes mellitus without complications Status: Acute (5) Hypertension Code(s): I10 - Essential (primary) hypertension Status: Acute (6) GERD (gastroesophageal reflux disease) Code(s): K21.9 - Gastro-esophageal reflux disease without esophagitis Status: Acute (7) Sleep apnea Code(s): G47.30 - Sleep apnea, unspecified Status: Acute (8) Incontinence Code(s): R32 - Unspecified urinary incontinence Status: Acute (9) Diabetic neuropathy Code(s): E11.40 - Type 2 diabetes mellitus with diabetic neuropathy, unspecified Status: Acute (10) Nutrition, metabolism, and development symptoms Code(s): R63.8 - Other symptoms and signs concerning food and fluid intake Status: Acute (11) DVT prophylaxis Status: Acute <Leonidas Cortes - 02/21/18 14:46> (1) Closed fracture distal radius and ulna Code(s): S52.509A - Unspecified fracture of the lower end of unspecified radius , initial encounter for closed fracture; S52.609A - Unspecified fracture of lower end of unspecified ulna, initial encounter for closed fracture Status: Acute Plan: Patient admitted after a fall onto the left side is and found to have distal radius and ulnar fractures. Nondisplaced fracture of the distal radius and ulna. Physical therapy and occupational therapy ordered -Follow-up orthopedic recommendations (2) Hematoma of left lower extremity Code(s): S80.12XA - Contusion of left lower leg, initial encounter Status: Acute Plan: Patient with fall on the left side found to have suprapatellar hematoma on exam. Left knee ultrasound showing multiple pockets of fluid. -Patient's orthopedic surgeon, Dr. Julien, unavailable and will consult on-call orthopedic Medications: Please see plan as above (3) Fall Code(s): W19.XXXA - Unspecified fall, initial encounter Status: Acute Plan: Patient admitted for fall on the left side after episode of dizziness without vertigo. Patient admitted as patient lives alone and is with new fracture and decreased mobility concerning for unsafe discharge. Orthostatic vital signs ordered PT and OT ordered Head CT: No focal or acute intracranial hemorrhage. Stable bilateral cortical atrophy and chronic white matter changes. Facial CT: No acute bony fracture. Chronic sinus disease in the right sphenoid and ethmoid sinuses. 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 Hip x-rays: Intact pelvis and left hip. Healed left intratrochanteric fracture post nail and akosua fixation. CBC: Within normal limits with H/H of 12.4/36.9 CMP: Electrolytes within normal limits with creatinine of 0.87 and EGFR of 63, LFTs within normal limits (4) Diabetes mellitus Code(s): E11.9 - Type 2 diabetes mellitus without complications Status: Acute Plan: Patient with history of type 2 diabetes mellitus Medications: Hold home sitagliptin Sliding scale ordered per protocol Continue home aspirin and simvastatin (5) Hypertension Code(s): I10 - Essential (primary) hypertension Status: Acute Plan: Patient with history of hypertension Medications: Continue home losartanhydrochlorothiazide and carvedilol (6) GERD (gastroesophageal reflux disease) Code(s): K21.9 - Gastro-esophageal reflux disease without esophagitis Status: Acute Plan: Patient with history of gastroesophageal reflux disease Medications: Continue home pantoprazole 40 mg daily (7) Sleep apnea Code(s): G47.30 - Sleep apnea, unspecified Status: Acute Plan: Patient with history of sleep apnea Patient did not bring home machine with her to the hospital Discussed with respiratory therapy of possible assistance during hospitalization Encouraged patient to contact neighbor/friend to obtain her machine if patient is admitted for prolonged hospital stay (8) Incontinence Code(s): R32 - Unspecified urinary incontinence Status: Acute Plan: Patient with history of incontinence UA: Negative (9) Diabetic neuropathy Code(s): E11.40 - Type 2 diabetes mellitus with diabetic neuropathy, unspecified Status: Acute Plan: Patient with history of diabetic neuropathy Medications: Continue home venlafaxine Patient allergic to gabapentin (10) Nutrition, metabolism, and development symptoms Code(s): R63.8 - Other symptoms and signs concerning food and fluid intake Status: Acute Plan: Fluids: Tolerating oral fluids well, appears well-hydrated Electrolytes: No acute abnormalities, continue to monitor Diet: Diabetic diet as tolerated; patient to be n.p.o. at midnight if possible procedure as needed Prophylaxis: Constipation protocol, Roxicodone for pain, zofran for nausea/ vomiting PT/OT ordered Case management consulted to assist with placement (11) DVT prophylaxis Status: Acute Plan: Defer medical prophylaxis due to hematoma and likely discharge tomorrow Plan for medical prophylaxis with prolonged hospital stay SCDs ordered <Moris Moore - 02/21/18 13:59> - Attending Attestation See the residents documentation for details. I saw and evaluated the patient regarding the panchal portions of this evaluation and agree with the residents findings and plans as written. Parts of this note were created using [email or web address] voice recognition software program. While efforts were made to correct any mistakes made by this software, some mistakes, errors, and omissions may remain in the final note that were not caught when the note was originally created. Plan of care was discussed and agreed upon with the patient as specifically documented in the above note. An opportunity to ask questions with explanation was provided. Patient voiced understanding on all information reviewed and discussed. <Leonidas Cortes - 02/21/18 14:46> <Moris Moore - Last Filed: 02/21/18 13:59> (1) Closed fracture distal radius and ulna Qualifiers: Encounter type: initial encounter Laterality: left Qualified Code(s): S52.502A - Unspecified fracture of the lower end of left radius, initial encounter for closed fracture; S52.602A - Unspecified fracture of lower end of left ulna, initial encounter for closed fracture (2) Hematoma of left lower extremity Qualifiers: Encounter type: initial encounter Qualified Code(s): S80.12XA - Contusion of left lower leg, initial encounter (3) Fall Qualifiers: Encounter type: initial encounter Qualified Code(s): W19.XXXA - Unspecified fall, initial encounter <Leonidas Cortes - Last Filed: 02/21/18 14:46> (1) Closed fracture distal radius and ulna Qualifiers: Encounter type: initial encounter Laterality: left Qualified Code(s): S52.502A - Unspecified fracture of the lower end of left radius, initial encounter for closed fracture; S52.602A - Unspecified fracture of lower end of left ulna, initial encounter for closed fracture (2) Hematoma of left lower extremity Qualifiers: Encounter type: initial encounter Qualified Code(s): S80.12XA - Contusion of left lower leg, initial encounter (3) Fall Qualifiers: Encounter type: initial encounter Qualified Code(s): W19.XXXA - Unspecified fall, initial encounter <Moris Moore - Last Filed: 02/21/18 13:59> (1) Closed fracture distal radius and ulna Qualifiers: Encounter type: initial encounter Laterality: left Qualified Code(s): S52.502A - Unspecified fracture of the lower end of left radius, initial encounter for closed fracture; S52.602A - Unspecified fracture of lower end of left ulna, initial encounter for closed fracture (2) Hematoma of left lower extremity Qualifiers: Encounter type: initial encounter Qualified Code(s): S80.12XA - Contusion of left lower leg, initial encounter (3) Fall Qualifiers: Encounter type: initial encounter Qualified Code(s): W19.XXXA - Unspecified fall, initial encounter <Leonidas Cortes - Last Filed: 02/21/18 14:46> (1) Closed fracture distal radius and ulna Qualifiers: Encounter type: initial encounter Laterality: left Qualified Code(s): S52.502A - Unspecified fracture of the lower end of left radius, initial encounter for closed fracture; S52.602A - Unspecified fracture of lower end of left ulna, initial encounter for closed fracture (2) Hematoma of left lower extremity Qualifiers: Encounter type: initial encounter Qualified Code(s): S80.12XA - Contusion of left lower leg, initial encounter (3) Fall Qualifiers: Encounter type: initial encounter Qualified Code(s): W19.XXXA - Unspecified fall, initial encounter
--- NOTE | 2018-02-21 14:03 | P.CONOP ---
[facility] Orthopedics Consult Note - [facility] Consult date: 02/21/18 Consult reason: joint pain, fracture Chief complaint: left wrist fracture, knee contusion Narrative: 77-year-old female presenting to the ED with recent fall and subsequent left wrist fracture. Patient states that on the afternoon of admission she was watching TV when she mary from a sitting position attempted to take 2 steps and then fell forward striking her L head against a chest of drawers after experiencing a short episode of dizziness. Patient states that she did not lose consciousness during the fall and fell onto her left outstretched arm and knee. She was unable to pick herself off the floor and began to scream for help. Her neighbor overheard and used her spare panchal to come a sister. [facility] was called and patient presented to ED. Patient endorsed with focal pain and her left upper extremity and left knee with full body tenderness. Patient was further evaluated with multiple imaging studies and found to have a nondisplaced fracture of the distal radius and ulna. Patient was then admitted as she is a unsafe discharge as she currently lives alone and has decreased mobility. Other than her body pain from the fall, patient has no other acute complaints denies any fevers, chills, shortness of breath, chest pain, NVD, abdominal pain, or calf tenderness at this time. Review of Systems Denies fevers, chills, nausea, vomiting. Denies chest pain, cough, shortness of breath. Denies abdominal pain or change in urination. Denies back pain, weakness, numbness or tingling. Denies dizziness, blurry vision or throat pain. Reports left wrist and left knee pain PMFSH - History History Provided By: Patient - Medical History Medical History: Medical History (Last Reviewed 02/21/18 @ 09:29 by Hawa Griffith) Wilkinson esophagus Breast cancer Cataracts, bilateral Constipation Depression Diabetes Diverticulosis Esophagitis GERD (gastroesophageal reflux disease) High cholesterol Hypertension Incontinence Osteoporosis Sleep apnea - Surgical History Surgical History: Surgical History (Last Reviewed 02/21/18 @ 09:29 by Hawa Griffith) H/O cardiac catheterization H/O total knee replacement History of appendectomy History of hip surgery History of lumbar surgery History of tonsillectomy Hx of cholecystectomy S/P wrist surgery - Tobacco History Second Hand Smoke Exposure: No Smoking Status: Never smoker - Alcohol History How Often Do You Have a Drink Containing Alcohol: Never - Substance Use History Substance History: No History of Abuse - Travel History Recent Travel in the [facility] Within the Last 8 Weeks: No - Immunization History Tetanus Immunization: >5 Years Medications and Allergies Active Medications: Active Medications Al Hydroxide/Mg Hydroxide (Milk Of Magnesia Liq) 30 ml PO Q12H PRN PRN Reason: Mild Constipation Aspirin (Ecotrin) 81 mg PO DAILY [facility] Last Admin: 02/21/18 09:10 Dose: 81 mg Bisacodyl (Dulcolax Supp) 10 mg RECTAL DAILY PRN PRN Reason: SEVERE CONSITIPATION Calcium/Vitamin D (Oscal With D 250/125 Mg) 2 tab PO DAILY [facility] Last Admin: 02/21/18 09:11 Dose: 2 tab Carvedilol (Coreg) 3.125 mg PO BID [facility] Last Admin: 02/21/18 09:12 Dose: 3.125 mg Dextrose (D50w Vial) 50 ml IV.PUSH UNSCH PRN PRN Reason: PER HYPOGLYCEMIA PROTOCOL Glucagon (Glucagon Inj) 1 mg OTHER PRN PRN PRN Reason: for Hypoglycemia Protocol Hydrochlorothiazide (Microzide) 12.5 mg PO DAILY [facility] Last Admin: 02/21/18 09:10 Dose: 12.5 mg Acetaminophen (Ofirmev Inj) 1,000 mg in 100 mls @ 400 mls/hr IV.SIG Q6H [facility] Stop: 02/21/18 16:14 Last Infusion: 02/21/18 13:36 Dose: Infused Sodium Chloride (Ns Inj) 1,000 mls @ 100 mls/hr IV.CONT .Q10H [facility] Last Admin: 02/21/18 10:13 Dose: 100 mls/hr Insulin Aspart (Novolog Insulin Correctional Sugar Inj) 0 unit SQ ACHS [facility]; Protocol Last Admin: 02/21/18 12:27 Dose: Not Given Lactulose (Lactulose Liq) 30 ml PO DAILY PRN PRN Reason: SEVERE CONSITIPATION Losartan Potassium (Cozaar) 100 mg PO DAILY [facility] Last Admin: 02/21/18 09:11 Dose: 100 mg Magnesium Oxide (Mag-Ox) 400 mg PO DAILY [facility] Last Admin: 02/21/18 09:10 Dose: 400 mg Naloxone HCl (Narcan Inj) 0.4 mg IV.PUSH UNSCH PRN PRN Reason: SEE LABEL COMMENTS Ondansetron HCl (Zofran Inj) 4 mg IV.PUSH Q6H PRN PRN Reason: nausea/vomiting Last Admin: 02/21/18 09:24 Dose: 4 mg Oxycodone HCl (Roxicodone) 5 mg PO Q4H PRN PRN Reason: PAIN SCALE 3 TO 5 Last Admin: 02/21/18 04:10 Dose: 5 mg Oxycodone HCl (Roxicodone) 10 mg PO Q4H PRN PRN Reason: PAIN SCALE 6 TO 10 Last Admin: 02/21/18 12:11 Dose: 10 mg Pantoprazole Sodium (Protonix) 40 mg PO DAILY [facility] Last Admin: 02/21/18 09:12 Dose: 40 mg Patient Own Medication ( Letrozole [Letrozole ] 2.5 Mg) 0 each PO DAILY [facility] Pravastatin Sodium (Pravachol) 40 mg PO HS [facility] Last Admin: 02/20/18 23:30 Dose: 40 mg Senna/Docusate Sodium (Ligia-Colace) 1 tab PO BID [facility] Last Admin: 02/21/18 09:11 Dose: Not Given Sennosides (Senokot) 17.2 mg PO Q12H PRN PRN Reason: Moderate Constipation Sodium Chloride (Ns Flush) 2 ml IV.FLUSH BID [facility] Last Admin: 02/21/18 09:12 Dose: 2 ml Sodium Chloride (Ns Flush) 2 ml IV.FLUSH PRN PRN PRN Reason: FLUSH AFTER USING IV ACCESS Sodium Chloride (Ns Flush) 2 ml IV.FLUSH BID [facility] Last Admin: 02/21/18 09:12 Dose: 2 ml Sodium Chloride (Ns Flush) 2 ml IV.FLUSH PRN PRN PRN Reason: FLUSH AFTER USING IV ACCESS Venlafaxine HCl (Effexor Xr) 75 mg PO DAILY [facility] Last Admin: 02/21/18 09:12 Dose: 75 mg Allergies Allergy/AdvReac Type Severity Reaction Status Date / Time adhesive Allergy Severe Rash Verified 02/20/18 15:19 gabapentin Allergy Severe Anaphylaxis Verified 02/20/18 15:19 Sulfa (Sulfonamide Allergy Severe RASH/SWELLI Verified 02/20/18 15:19 Antibiotics) NG codeine Allergy Mild RASH/SWELLI Verified 02/20/18 15:19 NG Home Medications Medication Instructions Recorded Confirmed Type aspirin [Enteric Coated Aspirin] 81 mg PO DAILY 02/05/18 02/20/18 History calcium carbonate-vitamin D3 600 mg PO DAILY 02/05/18 02/20/18 History [Calcium 600 + D(3)] carvedilol 3.125 mg PO BID 02/05/18 02/20/18 History letrozole 2.5 mg PO DAILY 02/05/18 02/20/18 History losartan-hydrochlorothiazide 1 tab PO DAILY 02/05/18 02/20/18 History magnesium oxide 400 mg PO DAILY 02/05/18 02/20/18 History pantoprazole 40 mg PO DAILY 02/05/18 02/20/18 History simvastatin 20 mg PO QPM 02/05/18 02/20/18 History venlafaxine 75 mg PO DAILY 02/05/18 02/20/18 History sitagliptin [Januvia] 50 mg PO DAILY 02/20/18 02/20/18 History Exam Vital signs: Vital Signs 02/20/18 15:20 02/20/18 16:15 02/20/18 18:28 Temperature 98 F 97.8 F Pulse Rate 73 76 Respiratory Rate 18 17 17 Blood Pressure 143/67 H 138/77 Pulse Oximetry 99 98 02/20/18 18:55 02/21/18 00:00 02/21/18 01:00 Temperature 97.6 F Pulse Rate 77 Respiratory Rate 18 20 16 Blood Pressure 128/58 L Pulse Oximetry 92 L 02/21/18 04:00 02/21/18 04:45 02/21/18 06:05 Temperature 97.6 F Pulse Rate 71 Respiratory Rate 16 16 16 Blood Pressure 116/56 L Pulse Oximetry 93 L 02/21/18 08:00 02/21/18 12:00 02/21/18 13:35 Temperature 97.8 F 98.0 F Pulse Rate 70 71 Respiratory Rate 16 18 16 Blood Pressure 128/66 136/78 Pulse Oximetry 88 L 90 L Intake & Output 02/20/18 02/21/18 02/21/18 18:59 06:59 18:59 Intake Total 1000 / 1000 560 / 560 1100 / 1100 Output Total 600 / 600 Balance 400 / 400 560 / 560 1100 / 1100 Weight 108.933 kg 122.47 kg Intake: IV 1000 / 1000 200 / 200 1100 / 1100 NS Inj 1,000 ML @ 100 mls/hr IV 1000 / 1000 .CONT .Q10H [facility] Rx#:[id number] Ofirmev Inj 1,000 mg In 100 ml 200 / 200 100 / 100 @ 400 mls/hr IV.SIG Q6H [facility] Rx# :[id number] NS Inj 1,000 ML @ 1000 mls/hr 1000 / 1000 IV.SIG BOLUS [facility] Rx#:[id number] Oral 360 / 360 Output: Urine 600 / 600 Other: # Voids 1 3 Date of Last Bowel Movement 02/20/18 02/20/18 Weight On Admission 122.47 kg Narrative: Awake, alert, no acute distress Normocephalic Pupils equal No JVD Moist mucous membranes Nonlabored respirations Soft nontender abdomen Regular rate Right upper extremity: No tenderness to palpation or visible deformities. Full active range of motion and strength throughout. Sensation intact. Brisk cap refill. Left upper extremity: Splint in place over left forearm. Patient wiggles fingers without difficulty. Sensation is intact distally. Brisk cap refill. Patient denies any significant tenderness over the shoulder or proximal arm. Right lower extremity: No tenderness to palpation or visible deformities. Full active range of motion and strength throughout. Sensation intact. Brisk cap refill. Left lower extremity: Mild to moderate ecchymosis with probable superficial hematoma over anterior knee. Previous total knee arthroplasty incision appears well-healed without signs of infection. Patient allows gentle passive range of motion of the knee although significant pain with flexion past 45 degrees. Patient appears intact distally with positive EHL and FHL. Sensation intact. Brisk cap refill. No rash Normal affect Results - Labs Result Diagrams: 02/21/18 09:25 02/21/18 09:25 Labs: Laboratory Results - last 24 hr 02/20/18 02/20/18 02/20/18 15:00 15:00 15:00 WBC 10.7 RBC 3.81 L Hgb 12.4 Hct 36.9 MCV 96.9 MCH 32.6 MCHC 33.6 RDW 14.1 Plt Count 246 MPV 8.0 Neut % (Auto) 73.7 H Lymph % (Auto) 16.6 [place] % (Auto) 6.7 Eos % (Auto) 2.0 Baso % (Auto) 1.0 Neut # (Auto) 7.9 H Lymph # (Auto) 1.8 [place] # (Auto) 0.7 Eos # (Auto) 0.2 Baso # (Auto) 0.1 WBC Differential . Differential Comment Auto diff final PT 11.4 INR 1.1 APTT 31.6 Sodium 141 Potassium 3.6 Chloride 106 Carbon Dioxide 26.3 Anion Gap 9 BUN 16 Creatinine 0.87 Estimated GFR 63 L POC Glucose Random Glucose 159 H Calcium 9.3 Total Bilirubin 0.3 AST 17 ALT 30 Alkaline Phosphatase 88 Troponin I Total Protein 7.3 Albumin 3.3 L Vitamin D 25-Hydroxy Urine Color Urine Clarity Urine pH Ur Specific [place] Urine Protein Urine Glucose (UA) Urine Ketones Urine Occult Blood Urine Nitrate Urine Bilirubin Urine Urobilinogen Ur Leukocyte Esterase Urine RBC Urine WBC Ur Squamous Epith Cells Hyaline Casts Urine Mucus Micro UA Comment Ur Microscopic Review Urine Culture Comments 02/20/18 02/20/18 02/20/18 15:00 16:30 23:35 WBC RBC Hgb Hct MCV MCH MCHC RDW Plt Count MPV Neut % (Auto) Lymph % (Auto) [place] % (Auto) Eos % (Auto) Baso % (Auto) Neut # (Auto) Lymph # (Auto) [place] # (Auto) Eos # (Auto) Baso # (Auto) WBC Differential Differential Comment PT INR APTT Sodium Potassium Chloride Carbon Dioxide Anion Gap BUN Creatinine Estimated GFR POC Glucose 152 H Random Glucose Calcium Total Bilirubin AST ALT Alkaline Phosphatase Troponin I Less than 0.02 L Total Protein Albumin Vitamin D 25-Hydroxy Urine Color Yellow Urine Clarity Hazy H Urine pH 5.0 Ur Specific [place] 1.019 Urine Protein Negative Urine Glucose (UA) Negative Urine Ketones Negative Urine Occult Blood Negative Urine Nitrate Negative Urine Bilirubin Negative Urine Urobilinogen Less than 2 Ur Leukocyte Esterase Negative Urine RBC 1 Urine WBC 1 Ur Squamous Epith Cells 3 Hyaline Casts 1 Urine Mucus Few H Micro UA Comment Culture not ind Ur Microscopic Review Not Reportable Urine Culture Comments Culture not ind 02/21/18 02/21/18 02/21/18 09:19 09:25 09:25 WBC 9.0 RBC 3.55 L Hgb 11.3 L Hct 34.5 L MCV 97.1 MCH 31.7 MCHC 32.6 RDW 13.9 Plt Count 242 MPV 7.8 Neut % (Auto) 63.3 Lymph % (Auto) 26.0 [place] % (Auto) 6.9 Eos % (Auto) 3.0 Baso % (Auto) 0.8 Neut # (Auto) 5.7 Lymph # (Auto) 2.3 [place] # (Auto) 0.6 Eos # (Auto) 0.3 Baso # (Auto) 0.1 WBC Differential . Differential Comment Auto diff final PT INR APTT Sodium 140 Potassium 3.8 Chloride 106 Carbon Dioxide 26.8 Anion Gap 7 BUN 14 Creatinine 0.76 Estimated GFR 73 L POC Glucose 143 H Random Glucose 141 H Calcium 7.9 L D Total Bilirubin AST ALT Alkaline Phosphatase Troponin I Total Protein Albumin Vitamin D 25-Hydroxy 23.3 L Urine Color Urine Clarity Urine pH Ur Specific [place] Urine Protein Urine Glucose (UA) Urine Ketones Urine Occult Blood Urine Nitrate Urine Bilirubin Urine Urobilinogen Ur Leukocyte Esterase Urine RBC Urine WBC Ur Squamous Epith Cells Hyaline Casts Urine Mucus Micro UA Comment Ur Microscopic Review Urine Culture Comments 02/21/18 12:26 WBC RBC Hgb Hct MCV MCH MCHC RDW Plt Count MPV Neut % (Auto) Lymph % (Auto) [place] % (Auto) Eos % (Auto) Baso % (Auto) Neut # (Auto) Lymph # (Auto) [place] # (Auto) Eos # (Auto) Baso # (Auto) WBC Differential Differential Comment PT INR APTT Sodium Potassium Chloride Carbon Dioxide Anion Gap BUN Creatinine Estimated GFR POC Glucose 146 H Random Glucose Calcium Total Bilirubin AST ALT Alkaline Phosphatase Troponin I Total Protein Albumin Vitamin D 25-Hydroxy Urine Color Urine Clarity Urine pH Ur Specific [place] Urine Protein Urine Glucose (UA) Urine Ketones Urine Occult Blood Urine Nitrate Urine Bilirubin Urine Urobilinogen Ur Leukocyte Esterase Urine RBC Urine WBC Ur Squamous Epith Cells Hyaline Casts Urine Mucus Micro UA Comment Ur Microscopic Review Urine Culture Comments - Diagnostic results Imaging: Impressions Hip X-Ray 02/20/18 00:00 CONCLUSION: 1. Intact pelvis and left hip. 2. Healed left intertrochanteric fracture post nail and akosua fixation. Cervical Spine CT 02/20/18 15:28 CONCLUSION: 1. Stable osteopenia and degenerative changes are noted throughout the cervical spine. 2. Mild broad-based bulging with disc osteophyte complex at C5-6. 3. No significant changes are seen compared to the prior exam. Face CT 02/20/18 15:28 CONCLUSION: 1. No acute bony fracture. 2. Chronic sinus disease in the right sphenoid and ethmoid sinuses. 3. 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 Head CT 02/20/18 15:28 CONCLUSION: 1. No focal or acute intracranial hemorrhage. 2. Stable bilateral cortical atrophy and chronic white matter changes. . Knee X-Ray 02/20/18 15:28 CONCLUSION: 1. Status post left knee arthroplasty. No radiographic evidence for hardware failure. 2. No acute fracture. Shoulder X-Ray 02/20/18 15:28 CONCLUSION: Degenerative changes suggesting chronic rotator cuff tear. Fracture not appreciated. Wrist X-Ray 02/20/18 15:28 CONCLUSION: Nondisplaced fracture of the distal radius and ulna. Diffuse osteopenia Lower Extremity Ultrasound 02/21/18 00:00 CONCLUSION: There are 3 adjacent and potentially connecting heterogeneous fluid collections in the prepatellar region of the left knee. The appearance and recent trauma, these could represent Thomson-Brittani lesions or combination of a simple edema and hematomas. Assessment and Plan - Assessment and Plan 77-year-old female with closed left minimally displaced distal radius and ulnar styloid fractures along with left knee hematoma Radiographs reviewed by myself and with the patient. She does have extensive degenerative changes around the left wrist due to previous fracture. Currently , she has a minimally displaced left distal radius and ulnar styloid fracture. Options of management were reviewed with the patient including continued nonoperative care and splint versus operative intervention. At this time I do think it is reasonable to at least attempt an initial course of nonoperative management. I have advised the patient remain nonweightbearing to left upper extremity in the splint. I encouraged the patient to work on finger range of motion. I discussed with the patient that her left total knee prosthesis appears in good position on radiographs and there is no clear evidence of fracture. She appears to have a superficial hematoma and I would recommend conservative treatment of this with ice, range of motion and weightbearing as tolerated. Patient is a known patient of Dr. Julien and states she follows with him on a regular basis. I explained to the patient that I am certainly happy to follow her after discharge or she can follow-up with Dr. Julien. Should she elect to follow with myself, I would like to see her in my office in approximately 10-14 days.
--- NOTE | 2018-02-21 17:36 | ECG ---
Date Performed: 02/20/2018 Time Performed: 23:06:35 PTAGE: 77 years EKG: Sinus rhythm MARKED LEFT AXIS DEVIATION MODERATE INTRAVENTRICULAR CONDUCTION DELAY MODERATE VOLTAGE CRITERIA FOR LVH, CONSIDER NORMAL VARIANT NONSPECIFIC T-WAVE ABNORMALITY ABNORMAL ECG PREVIOUS TRACING : 02/20/2018 17.05 Since the previous tracing, no significant change noted DOCTOR: Lucy Moreno Interpretating Date/Time 02/21/2018 17:33:54
--- NOTE | 2018-02-21 17:36 | ECG ---
Date Performed: 02/20/2018 Time Performed: 17:05:23 PTAGE: 77 years EKG: Sinus rhythm MARKED LEFT AXIS DEVIATION INCOMPLETE RIGHT BUNDLE BRANCH BLOCK MINIMAL VOLTAGE CRITERIA FOR LVH, CO NSIDER NORMAL VARIANT ABNORMAL ECG PREVIOUS TRACING : 02/05/2018 09.49 Since the previous tracing, no significant change noted DOCTOR: Lucy Moreno Interpretating Date/Time 02/21/2018 17:33:45
[2018-02-22] MEDS: Sod Chloride 0.9% Inj 1,000 ML IV.CONT SCH ×2 (05:12→15:50)
[2018-02-22] MEDS: Calcium/Vitamin D 250/125 MG Tablet PO SCH (09:08)
[2018-02-22] MEDS: Venlafaxine XR 75 MG Capsule PO SCH (09:08)
[2018-02-22] MEDS: Senna/Docusate Sodium 8.6/50 MG Tablet PO SCH ×2 (09:09→20:59)
[2018-02-22] MEDS: Magnesium Oxide 400 MG Tablet PO SCH (09:09)
[2018-02-22] MEDS: Insulin NovoLOG Aspart Correctional Sugar Inj SQ SCH ×4 (09:15→22:58)
--- NOTE | 2018-02-22 14:29 | P.PNFP ---
Subjective Interval history: Patient seen and examined this morning. No acute events overnight. Patient reports good sensation in her left arm, no increased pain, no new numbness/tingling/coolness. Patient reports continued pain in her left knee, well controlled. Denies nausea, vomiting, fever, chills, abdominal pain, chest pain, shortness of breath, lightheadedness, dizziness. Patient understands the importance of physical therapy and agrees to continued therapy and rehab. <Moris Moore - 02/22/18 14:28> Results - Labs Result diagrams: 02/24/18 07:52 02/21/18 09:25 <Leonidas Cortes - 02/25/18 15:16> Abnormal lab results 02/24/18 02/24/18 02/25/18 Range/Units 17:20 23:04 09:45 POC Glucose 157 H 129 H 163 H (68-110) mg/dl 02/25/18 Range/Units 13:20 POC Glucose 154 H (68-110) mg/dl <Leonidas Cortes - 02/25/18 15:16> Abnormal lab results 02/21/18 02/22/18 02/22/18 Range/Units 22:08 04:31 09:14 POC Glucose 161 H 152 H 138 H (68-110) mg/dl 02/22/18 Range/Units 12:15 POC Glucose 169 H (68-110) mg/dl Cardiac Enzymes 02/21/18 Range/Units 09:25 Total Creatine Kinase 75 (26-192) U/L <Moris Moore - 02/22/18 14:28> - Imaging Impressions Ankle X-Ray 02/25/18 00:00 CONCLUSION: 1. Abnormal appearing calcaneus of indeterminate age. There are no prior studies for comparison. If clinically indicated this could be further evaluated with CT. 2. Degenerative change involving the tibiotalar joint. The distal tibia and fibula are intact. <Leonidas Cortes - 02/25/18 15:16> Physical Exam Vital signs: Vital Signs 02/24/18 16:00 02/24/18 20:00 02/24/18 23:45 Temperature 99.2 F 99.1 F 98.9 F Pulse Rate 83 92 H 84 Respiratory Rate 15 20 20 Blood Pressure 142/79 H 128/81 179/74 H Pulse Oximetry 97 94 L 96 02/25/18 03:43 02/25/18 08:33 02/25/18 11:34 Temperature 98.5 F 97.9 F 98.3 F Pulse Rate 76 79 79 Respiratory Rate 16 16 18 Blood Pressure 137/72 169/77 H 169/74 H Pulse Oximetry 97 97 96 Intake & Output 02/24/18 02/25/18 02/25/18 18:59 06:59 18:59 Intake Total 1999 1000 / 1000 Balance 1999 1000 / 1000 Intake: IV 1999 1000 / 1000 NS Inj 1,000 ML @ 100 mls/hr IV 1999 1000 / 1000 .CONT .Q10H [facility] Rx#:[id number] Other: # Voids 1 Date of Last Bowel Movement 02/20/18 <Leonidas Cortes - 02/25/18 15:16> Vital Signs 02/21/18 16:00 02/21/18 18:03 02/21/18 19:29 Temperature 97.6 F 98.0 F Pulse Rate 69 71 Respiratory Rate 16 16 20 Blood Pressure 126/65 152/65 H Pulse Oximetry 90 L 92 L 02/21/18 23:24 02/22/18 04:00 02/22/18 08:00 Temperature 97.9 F 97.9 F 97.4 F L Pulse Rate 83 69 72 Respiratory Rate 17 20 18 Blood Pressure 135/64 144/67 H 134/62 Pulse Oximetry 94 L 94 L 97 02/22/18 12:00 Temperature 98.3 F Pulse Rate 77 Respiratory Rate 18 Blood Pressure 121/63 Pulse Oximetry 96 Intake & Output 02/21/18 02/22/18 02/22/18 18:59 06:59 18:59 Intake Total 1200 / 1200 2210 / 2210 Balance 1200 / 1200 2210 / 2210 Intake: IV 1200 / 1200 1850 / 1850 NS Inj 1,000 ML @ 100 mls/hr IV 1000 / 1000 1850 / 1850 .CONT .Q10H [facility] Rx#:[id number] Ofirmev Inj 1,000 mg In 100 ml 200 / 200 @ 400 mls/hr IV.SIG Q6H [facility] Rx# :[id number] Oral 360 / 360 Other: # Voids 0 Date of Last Bowel Movement 02/20/18 02/20/18 02/20/18 <Moris Moore - 02/22/18 14:28> Narrative: GENERAL: Laying in bed, no acute distress SKIN: Warm and dry. Ecchymoses overlying the left patella, extended since admission. HEAD: Atraumatic. Normocephalic. EYES: Pupils equal and round. No scleral icterus. No injection or drainage. ENT: No nasal bleeding or discharge. Mucous membranes pink and moist. NECK: Trachea midline. No JVD. CARDIOVASCULAR: Regular rate and rhythm. RESPIRATORY: No accessory muscle use. Clear to auscultation. Breath sounds equal bilaterally. GASTROINTESTINAL: Abdomen soft, non-tender, nondistended. Hepatic and splenic margins not palpable. MUSCULOSKELETAL: Extremities without clubbing, cyanosis, or edema. No obvious deformities. Left upper extremity with sensation intact, able to wiggle fingers , splint clean/dry/intact. Left lower extremity with ecchymoses prepatellar. Ecchymosis and induration stable from yesterday. No warmth or erythema. NEUROLOGICAL: Awake and alert. No obvious cranial nerve deficits. Motor grossly within normal limits. Five out of 5 muscle strength in the arms and legs. Normal speech. <Moris Moore - 02/22/18 14:28> Assessment and Plan - Assessment (1) Closed fracture distal radius and ulna Code(s): S52.509A - Unspecified fracture of the lower end of unspecified radius , initial encounter for closed fracture; S52.609A - Unspecified fracture of lower end of unspecified ulna, initial encounter for closed fracture Status: Acute (2) Hematoma of left lower extremity Code(s): S80.12XA - Contusion of left lower leg, initial encounter Status: Acute (3) Fall Code(s): W19.XXXA - Unspecified fall, initial encounter Status: Acute (4) Diabetes mellitus Code(s): E11.9 - Type 2 diabetes mellitus without complications Status: Acute (5) Hypertension Code(s): I10 - Essential (primary) hypertension Status: Acute (6) GERD (gastroesophageal reflux disease) Code(s): K21.9 - Gastro-esophageal reflux disease without esophagitis Status: Acute (7) Sleep apnea Code(s): G47.30 - Sleep apnea, unspecified Status: Acute (8) Incontinence Code(s): R32 - Unspecified urinary incontinence Status: Acute (9) Diabetic neuropathy Code(s): E11.40 - Type 2 diabetes mellitus with diabetic neuropathy, unspecified Status: Acute <CortesLeonidas - 02/25/18 15:16> (1) Closed fracture distal radius and ulna Code(s): S52.509A - Unspecified fracture of the lower end of unspecified radius , initial encounter for closed fracture; S52.609A - Unspecified fracture of lower end of unspecified ulna, initial encounter for closed fracture Status: Acute Plan: Patient admitted after a fall onto the left side is and found to have distal radius and ulnar fractures. Nondisplaced fracture of the distal radius and ulna. Physical therapy recommends therapy at rehab -Orthopedic surgery currently recommends conservative treatment, no surgical intervention at this time (2) Hematoma of left lower extremity Code(s): S80.12XA - Contusion of left lower leg, initial encounter Status: Acute Plan: Patient with fall on the left side found to have suprapatellar hematoma on exam. Left knee ultrasound showing multiple pockets of fluid. -Orthopedic surgery currently recommends conservative treatment, no intervention at this time (3) Fall Code(s): W19.XXXA - Unspecified fall, initial encounter Status: Acute Plan: Patient admitted for fall on the left side after episode of dizziness without vertigo. Patient admitted as patient lives alone and is with new fracture and decreased mobility concerning for unsafe discharge. PT and OT (4) Diabetes mellitus Code(s): E11.9 - Type 2 diabetes mellitus without complications Status: Acute Plan: Patient with history of type 2 diabetes mellitus Medications: Hold home sitagliptin Sliding scale ordered per protocol Continue home aspirin and simvastatin (5) Hypertension Code(s): I10 - Essential (primary) hypertension Status: Acute Plan: Patient with history of hypertension Medications: Continue home losartanhydrochlorothiazide and carvedilol (6) GERD (gastroesophageal reflux disease) Code(s): K21.9 - Gastro-esophageal reflux disease without esophagitis Status: Acute Plan: Patient with history of gastroesophageal reflux disease Medications: Continue home pantoprazole 40 mg daily (7) Sleep apnea Code(s): G47.30 - Sleep apnea, unspecified Status: Acute Plan: Patient with history of sleep apnea CPAP at night (8) Incontinence Code(s): R32 - Unspecified urinary incontinence Status: Acute Plan: Patient with history of incontinence UA: Negative (9) Diabetic neuropathy Code(s): E11.40 - Type 2 diabetes mellitus with diabetic neuropathy, unspecified Status: Acute Plan: Patient with history of diabetic neuropathy Medications: Continue home venlafaxine Patient allergic to gabapentin (10) Nutrition, metabolism, and development symptoms Code(s): R63.8 - Other symptoms and signs concerning food and fluid intake Status: Acute Plan: Fluids: Tolerating oral fluids well, appears well-hydrated Electrolytes: No acute abnormalities, continue to monitor Diet: Diabetic diet as tolerated; patient to be n.p.o. at midnight if possible procedure as needed Prophylaxis: Constipation protocol, Roxicodone for pain, zofran for nausea/ vomiting PT/OT ordered Case management consulted to assist with placement (11) DVT prophylaxis Status: Acute Plan: Defer medical prophylaxis due to hematoma and likely discharge tomorrow Plan for medical prophylaxis with prolonged hospital stay SCDs ordered <Moris Moore - 02/22/18 14:22> - Attending Attestation See the residents documentation for details. I saw and evaluated the patient regarding the panchal portions of this evaluation and agree with the residents findings and plans as written. Parts of this note were created using [employer] voice recognition software program. While efforts were made to correct any mistakes made by this software, some mistakes, errors, and omissions may remain in the final note that were not caught when the note was originally created. Plan of care was discussed and agreed upon with the patient as specifically documented in the above note. An opportunity to ask questions with explanation was provided. Patient voiced understanding on all information reviewed and discussed. <Leonidas Cortes - 02/25/18 15:16> <Moris Moore - Last Filed: 02/22/18 14:22> (1) Closed fracture distal radius and ulna Qualifiers: Encounter type: initial encounter Laterality: left Qualified Code(s): S52.502A - Unspecified fracture of the lower end of left radius, initial encounter for closed fracture; S52.602A - Unspecified fracture of lower end of left ulna, initial encounter for closed fracture (2) Hematoma of left lower extremity Qualifiers: Encounter type: initial encounter Qualified Code(s): S80.12XA - Contusion of left lower leg, initial encounter (3) Fall Qualifiers: Encounter type: initial encounter Qualified Code(s): W19.XXXA - Unspecified fall, initial encounter <Leonidas Cortes - Last Filed: 02/25/18 15:16> (1) Closed fracture distal radius and ulna Qualifiers: Encounter type: initial encounter Laterality: left Qualified Code(s): S52.502A - Unspecified fracture of the lower end of left radius, initial encounter for closed fracture; S52.602A - Unspecified fracture of lower end of left ulna, initial encounter for closed fracture (2) Hematoma of left lower extremity Qualifiers: Encounter type: initial encounter Qualified Code(s): S80.12XA - Contusion of left lower leg, initial encounter (3) Fall Qualifiers: Encounter type: initial encounter Qualified Code(s): W19.XXXA - Unspecified fall, initial encounter <Moris Moore - Last Filed: 02/22/18 14:22> (1) Closed fracture distal radius and ulna Qualifiers: Encounter type: initial encounter Laterality: left Qualified Code(s): S52.502A - Unspecified fracture of the lower end of left radius, initial encounter for closed fracture; S52.602A - Unspecified fracture of lower end of left ulna, initial encounter for closed fracture (2) Hematoma of left lower extremity Qualifiers: Encounter type: initial encounter Qualified Code(s): S80.12XA - Contusion of left lower leg, initial encounter (3) Fall Qualifiers: Encounter type: initial encounter Qualified Code(s): W19.XXXA - Unspecified fall, initial encounter <Leonidas Cortes - Last Filed: 02/25/18 15:16> (1) Closed fracture distal radius and ulna Qualifiers: Encounter type: initial encounter Laterality: left Qualified Code(s): S52.502A - Unspecified fracture of the lower end of left radius, initial encounter for closed fracture; S52.602A - Unspecified fracture of lower end of left ulna, initial encounter for closed fracture (2) Hematoma of left lower extremity Qualifiers: Encounter type: initial encounter Qualified Code(s): S80.12XA - Contusion of left lower leg, initial encounter (3) Fall Qualifiers: Encounter type: initial encounter Qualified Code(s): W19.XXXA - Unspecified fall, initial encounter
[2018-02-23] MEDS: Sod Chloride 0.9% Inj 1,000 ML IV.CONT SCH ×2 (03:00→14:12)
[2018-02-23] MEDS: Insulin NovoLOG Aspart Correctional Sugar Inj SQ SCH ×4 (08:30→22:35)
--- NOTE | 2018-02-23 08:31 | P.PNFP ---
Subjective Interval history: No acute events overnight. She reports that she has not yet gotten out of bed with PT. She has continued wrist and knee pain, however it is improved since yesterday. She does report some chest/upper abdominal pain. It is intermittent and she describes it as crampy/pressure. It is not present at this time. She denies fever, chills, nausea, vomiting, shortness of breath, abdominal pain, change in bowel or urinary. <Barney Zamora - 02/23/18 11:07> Results - Labs Result diagrams: 02/24/18 07:52 02/21/18 09:25 <Leonidas Cortes - 02/25/18 15:18> Abnormal lab results 02/24/18 02/24/18 02/25/18 Range/Units 17:20 23:04 09:45 POC Glucose 157 H 129 H 163 H (68-110) mg/dl 02/25/18 Range/Units 13:20 POC Glucose 154 H (68-110) mg/dl <Leonidas Cortes - 02/25/18 15:18> Abnormal lab results 02/22/18 02/22/18 02/22/18 Range/Units 09:14 12:15 17:09 POC Glucose 138 H 169 H 133 H (68-110) mg/dl 02/22/18 02/23/18 Range/Units 22:15 07:43 POC Glucose 179 H 146 H (68-110) mg/dl <Barney Zamora - 02/23/18 08:31> - Imaging Impressions Ankle X-Ray 02/25/18 00:00 CONCLUSION: 1. Abnormal appearing calcaneus of indeterminate age. There are no prior studies for comparison. If clinically indicated this could be further evaluated with CT. 2. Degenerative change involving the tibiotalar joint. The distal tibia and fibula are intact. <Leonidas Cortes - 02/25/18 15:18> Physical Exam Vital signs: Vital Signs 02/24/18 16:00 02/24/18 20:00 02/24/18 23:45 Temperature 99.2 F 99.1 F 98.9 F Pulse Rate 83 92 H 84 Respiratory Rate 15 20 20 Blood Pressure 142/79 H 128/81 179/74 H Pulse Oximetry 97 94 L 96 02/25/18 03:43 02/25/18 08:33 02/25/18 11:34 Temperature 98.5 F 97.9 F 98.3 F Pulse Rate 76 79 79 Respiratory Rate 16 16 18 Blood Pressure 137/72 169/77 H 169/74 H Pulse Oximetry 97 97 96 Intake & Output 02/24/18 02/25/18 02/25/18 18:59 06:59 18:59 Intake Total 1999 1000 / 1000 Balance 1999 1000 / 1000 Intake: IV 1999 1000 / 1000 NS Inj 1,000 ML @ 100 mls/hr IV 1999 1000 / 1000 .CONT .Q10H [facility] Rx#:[id number] Other: # Voids 1 Date of Last Bowel Movement 02/20/18 <Leonidas Cortes - 02/25/18 15:18> Vital Signs 02/22/18 12:00 02/22/18 14:52 02/22/18 16:00 Temperature 98.3 F 98.6 F Pulse Rate 77 73 Respiratory Rate 18 18 Blood Pressure 121/63 133/60 Pulse Oximetry 96 97 95 02/22/18 19:23 02/22/18 19:43 02/22/18 20:15 Temperature 98.4 F Pulse Rate 78 Respiratory Rate 20 20 Blood Pressure 184/77 H 116/54 L Pulse Oximetry 93 L 02/22/18 22:52 02/22/18 23:43 02/23/18 04:00 Temperature 98.6 F 98.3 F Pulse Rate 79 78 Respiratory Rate 20 20 Blood Pressure 131/58 L 121/57 L Pulse Oximetry 96 93 L 93 L 02/23/18 07:15 Temperature Pulse Rate Respiratory Rate Blood Pressure Pulse Oximetry 92 L Intake & Output 02/22/18 02/23/18 02/23/18 18:59 06:59 18:59 Intake Total 1000 / 1000 1000 / 1000 Balance 1000 / 1000 1000 / 1000 Intake: IV 1000 / 1000 1000 / 1000 NS Inj 1,000 ML @ 100 mls/hr IV 1000 / 1000 1000 / 1000 .CONT .Q10H [facility] Rx#:[id number] Other: Date of Last Bowel Movement 02/20/18 <Barney Zamora - 02/23/18 08:31> Narrative: General: Obese female, alert, and in no acute distress. Appears stated age. HEENT: Atraumatic, non-icteric sclera and no conjunctival injection, moist mucous membranes Neck: Supple, trachea midline Cardiac: Regular rate and rhythm without murmur Pulmonary: Non-labored breathing. Lungs clear to auscultation bilaterally with good air movement Abdomen: Normal bowel sounds, soft and non-tender without rebound or guarding Extremities: No edema, 2+ pedal pulses, capillary refill less than 2 seconds Left upper extremity has splint in place. Clean dry and intact, neurovascularly intact distal to the fracture. Left lower extremity continues to have ecchymosis over the prepatellar area with mild interval improvement from yesterday. It is no longer warm to the touch. <Barney Zamora - 02/23/18 11:07> Assessment and Plan - Assessment (1) Closed fracture distal radius and ulna Code(s): S52.509A - Unspecified fracture of the lower end of unspecified radius , initial encounter for closed fracture; S52.609A - Unspecified fracture of lower end of unspecified ulna, initial encounter for closed fracture Status: Acute (2) Hematoma of left lower extremity Code(s): S80.12XA - Contusion of left lower leg, initial encounter Status: Acute (3) Fall Code(s): W19.XXXA - Unspecified fall, initial encounter Status: Acute (4) Diabetes mellitus Code(s): E11.9 - Type 2 diabetes mellitus without complications Status: Acute (5) Hypertension Code(s): I10 - Essential (primary) hypertension Status: Acute (6) GERD (gastroesophageal reflux disease) Code(s): K21.9 - Gastro-esophageal reflux disease without esophagitis Status: Acute (7) Sleep apnea Code(s): G47.30 - Sleep apnea, unspecified Status: Acute (8) Incontinence Code(s): R32 - Unspecified urinary incontinence Status: Acute (9) Diabetic neuropathy Code(s): E11.40 - Type 2 diabetes mellitus with diabetic neuropathy, unspecified Status: Acute <Leonidas Cortes - 02/25/18 15:18> (1) Closed fracture distal radius and ulna Code(s): S52.509A - Unspecified fracture of the lower end of unspecified radius , initial encounter for closed fracture; S52.609A - Unspecified fracture of lower end of unspecified ulna, initial encounter for closed fracture Status: Acute Plan: (2) Hematoma of left lower extremity Code(s): S80.12XA - Contusion of left lower leg, initial encounter Status: Acute Plan: (3) Fall Code(s): W19.XXXA - Unspecified fall, initial encounter Status: Acute Plan: (4) Diabetes mellitus Code(s): E11.9 - Type 2 diabetes mellitus without complications Status: Acute Plan: (5) Hypertension Code(s): I10 - Essential (primary) hypertension Status: Acute Plan: (6) GERD (gastroesophageal reflux disease) Code(s): K21.9 - Gastro-esophageal reflux disease without esophagitis Status: Acute Plan: (7) Sleep apnea Code(s): G47.30 - Sleep apnea, unspecified Status: Acute Plan: (8) Incontinence Code(s): R32 - Unspecified urinary incontinence Status: Acute Plan: (9) Diabetic neuropathy Code(s): E11.40 - Type 2 diabetes mellitus with diabetic neuropathy, unspecified Status: Acute Plan: <Barney Zamora - 02/23/18 11:18> - Assessment and Plan 77-year-old woman admitted after a fall where she felt lightheaded and was found to have a distal radius and ulnar fractures. She also has a hematoma of the left knee (s/p total knee replacement). She lives alone and ambulates at home with a walker and is unable to care for herself at home at this time. Nondisplaced fracture of the distal radius and ulna -No surgical intervention recommended by orthopedics -PT recommends PT at rehab -7 days a week PT while hospitalized, OT service requested by PT Hematoma of left knee -Conservative treatment recommended by orthopedics Fall secondary to dizziness -Unsafe discharge at this time due to her deconditioning, orthostatic vitals did not show orthostatic hypotension Chest pain: Had some intermittent crampy/pressure today -Patient EKG and troponins ordered Diabetes mellitus and peripheral neuropathy -Hold home medication sitagliptin -Blood glucose reasonably well controlled thus far -Low-dose sliding scale insulin aspart Continue home medication venlafaxine for neuropathy GERD -Continue home medication pantoprazole Sleep apnea -CPAP at night History of urinary incontinence -UA was negative, no further inpatient workup at this time Fluids: Adequate p.o. intake Electrolytes: monitor and replete as needed Nutrition: Diabetic diet GI prophylaxis: P.o. pantoprazole (not GI prophylaxis) VTE prophylaxis: Bilateral SCDs (no pharmacologic prophylaxis due to current hematoma) Disposition: She is currently under observation status because she does not meet inpatient criteria. She is not safe to discharge due to her mobility status. <Barney Zamora - 02/23/18 11:20> - Attending Attestation See the residents documentation for details. I saw and evaluated the patient regarding the panchal portions of this evaluation and agree with the residents findings and plans as written. Parts of this note were created using [employer] [place] voice recognition software program. While efforts were made to correct any mistakes made by this software, some mistakes, errors, and omissions may remain in the final note that were not caught when the note was originally created. Plan of care was discussed and agreed upon with the patient as specifically documented in the above note. An opportunity to ask questions with explanation was provided. Patient voiced understanding on all information reviewed and discussed. <Leonidas Cortes - 02/25/18 15:18> <Barney Zamora J - Last Filed: 02/23/18 11:18> (1) Closed fracture distal radius and ulna Qualifiers: Encounter type: initial encounter Laterality: left Qualified Code(s): S52.502A - Unspecified fracture of the lower end of left radius, initial encounter for closed fracture; S52.602A - Unspecified fracture of lower end of left ulna, initial encounter for closed fracture (2) Hematoma of left lower extremity Qualifiers: Encounter type: initial encounter Qualified Code(s): S80.12XA - Contusion of left lower leg, initial encounter (3) Fall Qualifiers: Encounter type: initial encounter Qualified Code(s): W19.XXXA - Unspecified fall, initial encounter <CortesLeonidas - Last Filed: 02/25/18 15:18> (1) Closed fracture distal radius and ulna Qualifiers: Encounter type: initial encounter Laterality: left Qualified Code(s): S52.502A - Unspecified fracture of the lower end of left radius, initial encounter for closed fracture; S52.602A - Unspecified fracture of lower end of left ulna, initial encounter for closed fracture (2) Hematoma of left lower extremity Qualifiers: Encounter type: initial encounter Qualified Code(s): S80.12XA - Contusion of left lower leg, initial encounter (3) Fall Qualifiers: Encounter type: initial encounter Qualified Code(s): W19.XXXA - Unspecified fall, initial encounter <Barney Zamora - Last Filed: 02/23/18 11:18> (1) Closed fracture distal radius and ulna Qualifiers: Encounter type: initial encounter Laterality: left Qualified Code(s): S52.502A - Unspecified fracture of the lower end of left radius, initial encounter for closed fracture; S52.602A - Unspecified fracture of lower end of left ulna, initial encounter for closed fracture (2) Hematoma of left lower extremity Qualifiers: Encounter type: initial encounter Qualified Code(s): S80.12XA - Contusion of left lower leg, initial encounter (3) Fall Qualifiers: Encounter type: initial encounter Qualified Code(s): W19.XXXA - Unspecified fall, initial encounter <CortesLeonidas - Last Filed: 02/25/18 15:18> (1) Closed fracture distal radius and ulna Qualifiers: Encounter type: initial encounter Laterality: left Qualified Code(s): S52.502A - Unspecified fracture of the lower end of left radius, initial encounter for closed fracture; S52.602A - Unspecified fracture of lower end of left ulna, initial encounter for closed fracture (2) Hematoma of left lower extremity Qualifiers: Encounter type: initial encounter Qualified Code(s): S80.12XA - Contusion of left lower leg, initial encounter (3) Fall Qualifiers: Encounter type: initial encounter Qualified Code(s): W19.XXXA - Unspecified fall, initial encounter
[2018-02-23] MEDS: Venlafaxine XR 75 MG Capsule PO SCH (08:36)
[2018-02-23] MEDS: Senna/Docusate Sodium 8.6/50 MG Tablet PO SCH ×2 (08:36→21:38)
[2018-02-23] MEDS: Calcium/Vitamin D 250/125 MG Tablet PO SCH (08:36)
[2018-02-23] MEDS: PT:LETROZOLE 2.5 MG PO SCH (08:38)
[2018-02-23] MEDS: Magnesium Oxide 400 MG Tablet PO SCH (11:03)
[2018-02-24] MEDS: Sod Chloride 0.9% Inj 1,000 ML IV.CONT SCH ×3 (00:31→23:07)
[2018-02-24] MEDS: PT:LETROZOLE 2.5 MG PO SCH (08:35)
[2018-02-24] MEDS: Calcium/Vitamin D 250/125 MG Tablet PO SCH (08:36)
[2018-02-24] MEDS: Venlafaxine XR 75 MG Capsule PO SCH (08:37)
[2018-02-24] MEDS: Senna/Docusate Sodium 8.6/50 MG Tablet PO SCH ×2 (08:37→20:50)
[2018-02-24 08:55] LABS: Hematocrit 34.5 % (35.0-46.0); Hemoglobin 11.3 gm/dL (11.6-15.3)
--- NOTE | 2018-02-24 09:17 | P.PNFP ---
Subjective Interval history: Patient seen and examined today. No acute events overnight. Pain improving in left arm and leg. Denies nausea, vomiting, fever, chills, abdominal pain, chest pain, shortness of breath, lightheadedness, dizziness. Continues to work with physical therapy. No other complaints today. <Moris Moore - 02/24/18 09:17> Results - Labs Result diagrams: 02/24/18 07:52 02/21/18 09:25 <Leonidas Cortes - 02/25/18 15:25> Abnormal lab results 02/24/18 02/24/18 02/25/18 Range/Units 17:20 23:04 09:45 POC Glucose 157 H 129 H 163 H (68-110) mg/dl 02/25/18 Range/Units 13:20 POC Glucose 154 H (68-110) mg/dl <Leonidas Cortes - 02/25/18 15:25> Abnormal lab results 02/23/18 02/23/18 02/23/18 Range/Units 12:24 13:22 17:03 Hgb (11.6-15.3) gm/dL Hct (35.0-46.0) % POC Glucose 189 H 173 H (68-110) mg/dl Troponin I Less than 0.02 L (0.02-0.05) ng/mL 02/23/18 02/24/18 02/24/18 Range/Units 22:37 07:52 08:41 Hgb 11.3 L (11.6-15.3) gm/dL Hct 34.5 L (35.0-46.0) % POC Glucose 157 H 157 H (68-110) mg/dl Troponin I (0.02-0.05) ng/mL Short CBC 02/24/18 Range/Units 07:52 Hgb 11.3 L (11.6-15.3) gm/dL Hct 34.5 L (35.0-46.0) % Cardiac Enzymes 02/23/18 Range/Units 13:22 Troponin I Less than 0.02 L (0.02-0.05) ng/mL <Moris Moore - 02/24/18 09:17> - Imaging Impressions Ankle X-Ray 02/25/18 00:00 CONCLUSION: 1. Abnormal appearing calcaneus of indeterminate age. There are no prior studies for comparison. If clinically indicated this could be further evaluated with CT. 2. Degenerative change involving the tibiotalar joint. The distal tibia and fibula are intact. <CortesLeonidas - 02/25/18 15:25> Physical Exam Vital signs: Vital Signs 02/24/18 16:00 02/24/18 20:00 02/24/18 23:45 Temperature 99.2 F 99.1 F 98.9 F Pulse Rate 83 92 H 84 Respiratory Rate 15 20 20 Blood Pressure 142/79 H 128/81 179/74 H Pulse Oximetry 97 94 L 96 02/25/18 03:43 02/25/18 08:33 02/25/18 11:34 Temperature 98.5 F 97.9 F 98.3 F Pulse Rate 76 79 79 Respiratory Rate 16 16 18 Blood Pressure 137/72 169/77 H 169/74 H Pulse Oximetry 97 97 96 Intake & Output 02/24/18 02/25/18 02/25/18 18:59 06:59 18:59 Intake Total 1999 1000 / 1000 Balance 1999 1000 / 1000 Intake: IV 1999 1000 / 1000 NS Inj 1,000 ML @ 100 mls/hr IV 1999 1000 / 1000 .CONT .[facility] Rx#:[id number] Other: # Voids 1 Date of Last Bowel Movement 02/20/18 <CortesLeonidas - 02/25/18 15:25> Vital Signs 02/23/18 12:00 02/23/18 16:00 02/23/18 20:00 Temperature 98.3 F 98.3 F 98.8 F Pulse Rate 77 83 73 Respiratory Rate 18 18 19 Blood Pressure 124/67 136/80 143/67 H Pulse Oximetry 95 94 L 97 02/23/18 22:08 02/24/18 00:00 02/24/18 04:00 Temperature 99.3 F 99.1 F Pulse Rate 78 77 Respiratory Rate 16 18 17 Blood Pressure 145/69 H 158/71 H Pulse Oximetry 100 98 02/24/18 08:00 Temperature 98.7 F Pulse Rate 75 Respiratory Rate 15 Blood Pressure 144/69 H Pulse Oximetry 99 Intake & Output 02/23/18 02/24/18 02/24/18 18:59 06:59 18:59 Intake Total 1240 / 1240 1000 / 1000 1000 / 1000 Balance 1240 / 1240 1000 / 1000 1000 / 1000 Intake: IV 1000 / 1000 1000 / 1000 1000 / 1000 NS Inj 1,000 ML @ 100 mls/hr IV 1000 / 1000 1000 / 1000 1000 / 1000 .CONT .Q10H [facility] Rx#:[id number] Oral 240 / 240 <Moris Moore - 02/24/18 09:17> Narrative: General: Obese female, alert, and in no acute distress. Appears stated age. HEENT: Atraumatic, non-icteric sclera and no conjunctival injection, moist mucous membranes Neck: Supple, trachea midline Cardiac: Regular rate and rhythm without murmur Pulmonary: Non-labored breathing. Lungs clear to auscultation bilaterally with good air movement Abdomen: Normal bowel sounds, soft and non-tender without rebound or guarding Extremities: No edema, 2+ pedal pulses, capillary refill less than 2 seconds Left upper extremity has splint in place. Clean dry and intact, neurovascularly intact distal to the fracture. Left lower extremity continues to have ecchymosis over the prepatellar area with mild interval improvement from yesterday. It is not warm to the touch. <Moris Moore - 02/24/18 09:17> Assessment and Plan - Assessment (1) Closed fracture distal radius and ulna Code(s): S52.509A - Unspecified fracture of the lower end of unspecified radius , initial encounter for closed fracture; S52.609A - Unspecified fracture of lower end of unspecified ulna, initial encounter for closed fracture Status: Acute (2) Hematoma of left lower extremity Code(s): S80.12XA - Contusion of left lower leg, initial encounter Status: Acute (3) Fall Code(s): W19.XXXA - Unspecified fall, initial encounter Status: Acute (4) Diabetes mellitus Code(s): E11.9 - Type 2 diabetes mellitus without complications Status: Acute (5) Hypertension Code(s): I10 - Essential (primary) hypertension Status: Acute (6) GERD (gastroesophageal reflux disease) Code(s): K21.9 - Gastro-esophageal reflux disease without esophagitis Status: Acute (7) Sleep apnea Code(s): G47.30 - Sleep apnea, unspecified Status: Acute (8) Incontinence Code(s): R32 - Unspecified urinary incontinence Status: Acute (9) Diabetic neuropathy Code(s): E11.40 - Type 2 diabetes mellitus with diabetic neuropathy, unspecified Status: Acute <Leonidas Cortes - 02/25/18 15:25> (1) Closed fracture distal radius and ulna Code(s): S52.509A - Unspecified fracture of the lower end of unspecified radius , initial encounter for closed fracture; S52.609A - Unspecified fracture of lower end of unspecified ulna, initial encounter for closed fracture Status: Acute Plan: (2) Hematoma of left lower extremity Code(s): S80.12XA - Contusion of left lower leg, initial encounter Status: Acute Plan: (3) Fall Code(s): W19.XXXA - Unspecified fall, initial encounter Status: Acute Plan: (4) Diabetes mellitus Code(s): E11.9 - Type 2 diabetes mellitus without complications Status: Acute Plan: (5) Hypertension Code(s): I10 - Essential (primary) hypertension Status: Acute Plan: (6) GERD (gastroesophageal reflux disease) Code(s): K21.9 - Gastro-esophageal reflux disease without esophagitis Status: Acute Plan: (7) Sleep apnea Code(s): G47.30 - Sleep apnea, unspecified Status: Acute Plan: (8) Incontinence Code(s): R32 - Unspecified urinary incontinence Status: Acute Plan: (9) Diabetic neuropathy Code(s): E11.40 - Type 2 diabetes mellitus with diabetic neuropathy, unspecified Status: Acute Plan: <Moris Moore - 02/24/18 10:26> - Assessment and Plan 77-year-old woman admitted after a fall where she felt lightheaded and was found to have a distal radius and ulnar fractures. She also has a hematoma of the left knee (s/p total knee replacement). She lives alone and ambulates at home with a walker and is unable to care for herself at home at this time. Nondisplaced fracture of the distal radius and ulna -No surgical intervention recommended by orthopedics -PT recommends PT at rehab -7 days a week, twice daily, PT while hospitalized Hematoma of left knee -Conservative treatment recommended by orthopedics Fall secondary to dizziness -Unsafe discharge at this time due to her deconditioning, orthostatic vitals did not show orthostatic hypotension Chest pain: Mild crampy pressure 02/23, troponins negative, EKG without signs of acute DE Diabetes mellitus and peripheral neuropathy -Hold home medication sitagliptin -Blood glucose reasonably well controlled thus far -Low-dose sliding scale insulin aspart Continue home medication venlafaxine for neuropathy GERD -Continue home medication pantoprazole Sleep apnea -CPAP at night History of urinary incontinence -UA was negative, no further inpatient workup at this time Fluids: Adequate p.o. intake Electrolytes: monitor and replete as needed Nutrition: Diabetic diet GI prophylaxis: P.o. pantoprazole (not GI prophylaxis) VTE prophylaxis: Bilateral SCDs (no pharmacologic prophylaxis due to current hematoma) Disposition: She is currently under observation status because she does not meet inpatient criteria. She is not safe to discharge due to her mobility status. <Moris Moore - 02/24/18 09:20> - Attending Attestation See the residents documentation for details. I saw and evaluated the patient regarding the panchal portions of this evaluation and agree with the residents findings and plans as written. Parts of this note were created using [employer] voice recognition software program. While efforts were made to correct any mistakes made by this software, some mistakes, errors, and omissions may remain in the final note that were not caught when the note was originally created. Plan of care was discussed and agreed upon with the patient as specifically documented in the above note. An opportunity to ask questions with explanation was provided. Patient voiced understanding on all information reviewed and discussed. <Leonidas Cortes - 02/25/18 15:25> <Moris Moore - Last Filed: 02/24/18 10:26> (1) Closed fracture distal radius and ulna Qualifiers: Encounter type: initial encounter Laterality: left Qualified Code(s): S52.502A - Unspecified fracture of the lower end of left radius, initial encounter for closed fracture; S52.602A - Unspecified fracture of lower end of left ulna, initial encounter for closed fracture (2) Hematoma of left lower extremity Qualifiers: Encounter type: initial encounter Qualified Code(s): S80.12XA - Contusion of left lower leg, initial encounter (3) Fall Qualifiers: Encounter type: initial encounter Qualified Code(s): W19.XXXA - Unspecified fall, initial encounter <Leonidas Cortes - Last Filed: 02/25/18 15:25> (1) Closed fracture distal radius and ulna Qualifiers: Encounter type: initial encounter Laterality: left Qualified Code(s): S52.502A - Unspecified fracture of the lower end of left radius, initial encounter for closed fracture; S52.602A - Unspecified fracture of lower end of left ulna, initial encounter for closed fracture (2) Hematoma of left lower extremity Qualifiers: Encounter type: initial encounter Qualified Code(s): S80.12XA - Contusion of left lower leg, initial encounter (3) Fall Qualifiers: Encounter type: initial encounter Qualified Code(s): W19.XXXA - Unspecified fall, initial encounter <Moris Moore - Last Filed: 02/24/18 10:26> (1) Closed fracture distal radius and ulna Qualifiers: Encounter type: initial encounter Laterality: left Qualified Code(s): S52.502A - Unspecified fracture of the lower end of left radius, initial encounter for closed fracture; S52.602A - Unspecified fracture of lower end of left ulna, initial encounter for closed fracture (2) Hematoma of left lower extremity Qualifiers: Encounter type: initial encounter Qualified Code(s): S80.12XA - Contusion of left lower leg, initial encounter (3) Fall Qualifiers: Encounter type: initial encounter Qualified Code(s): W19.XXXA - Unspecified fall, initial encounter <Leonidas Cortes - Last Filed: 02/25/18 15:25> (1) Closed fracture distal radius and ulna Qualifiers: Encounter type: initial encounter Laterality: left Qualified Code(s): S52.502A - Unspecified fracture of the lower end of left radius, initial encounter for closed fracture; S52.602A - Unspecified fracture of lower end of left ulna, initial encounter for closed fracture (2) Hematoma of left lower extremity Qualifiers: Encounter type: initial encounter Qualified Code(s): S80.12XA - Contusion of left lower leg, initial encounter (3) Fall Qualifiers: Encounter type: initial encounter Qualified Code(s): W19.XXXA - Unspecified fall, initial encounter
[2018-02-24] MEDS: Insulin NovoLOG Aspart Correctional Sugar Inj SQ SCH ×4 (09:49→23:08)
--- NOTE | 2018-02-24 10:07 | ECG ---
Date Performed: 02/23/2018 Time Performed: 13:52:45 PTAGE: 77 years EKG: NORMAL Sinus rhythm POSSIBLE LEFT VENTRICULAR HYPERTROPHY BY VOLTAGE NONSPECIFIC INTRAVENTRICULAR CONDUCTION DELAY Since previous tracing, no significant change noted ABNORMAL ECG PREVIOUS TRACING : 02/20/2018 23.06 DOCTOR: Siva Pedraza Interpretating Date/Time 02/24/2018 10:07:05
[2018-02-24] MEDS: Magnesium Oxide 400 MG Tablet PO SCH (11:16)
[2018-02-25] MEDS: Venlafaxine XR 75 MG Capsule PO SCH (08:12)
[2018-02-25] MEDS: Magnesium Oxide 400 MG Tablet PO SCH (08:12)
[2018-02-25] MEDS: Calcium/Vitamin D 250/125 MG Tablet PO SCH (08:13)
[2018-02-25] MEDS: Senna/Docusate Sodium 8.6/50 MG Tablet PO SCH ×2 (08:13→21:16)
[2018-02-25] MEDS: PT:LETROZOLE 2.5 MG PO SCH (08:14)
[2018-02-25] MEDS: Sod Chloride 0.9% Inj 1,000 ML IV.CONT SCH ×3 (10:36→22:32)
--- NOTE | 2018-02-25 11:36 | MB ---
cc: Terrie Julien MD DATE: 02/25/2018 REASON FOR CONSULTATION: Status post fall with left wrist pain, left ankle pain, and left knee pain. HISTORY OF PRESENT ILLNESS: This pleasant 77-year-old female well-known to me fell several days ago in which she was brought to [facility] and admitted to observation on 02/20/2018. X-rays revealed a nondisplaced fracture of the distal radius and a left total knee to be intact. She is also complaining of low back pain and ankle pain and she is having a hard time trying to get up out of bed without assistance. PAST MEDICAL/SURGICAL HISTORY: Other past history, she has a several back surgeries by Dr. Petersen and is complaining of pain in the same area. Other medical problems include diabetes, hypertension, GERD, sleep apnea, bladder incontinence, fractured wrist in the past, fractured hip in the past, bilateral total knee arthroplasties, cholecystectomy, and appendectomy. REVIEW OF SYSTEMS: Noncontributory. FAMILY HISTORY: Noncontributory. SOCIAL HISTORY: She does not smoke or drink and lives alone. ALLERGIES: INCLUDE ADHESIVE TAPE, GABAPENTIN, SULFA, AND CODEINE. ORTHOPEDIC PHYSICAL EXAMINATION: A 77-year-old female well oriented, complaining of pain in the aforementioned areas. Examination in the wrist is neurovascularly intact to the fingers. She is in a splint. Her lumbar spine is tender. Her left leg is tender about the knee with quite a bit of bruising and hematoma formation noted. Left ankle is tender over the lateral malleolus. She has good motion in the knee, ankle, with some motion. She is neurovascularly intact to her toes. DIAGNOSTIC DATA: X-rays reviewed and revealed nondisplaced wrist fracture and the total knee to be seated well, in good alignment. IMPRESSION AND PLAN: Status post fall with injuries to her left wrist, her left knee, her left ankle, and her low back. The patient is being treated medically and we are trying to get her into rehab. The wrist would do better in a short-arm cast, which we will see about having done. I will x-ray the left ankle today and see about getting consult with Dr. Petersen, who has been taking care of her back problems, as well. She would do quite well in a rehab situation such as [place] if possible. We will follow this patient with you. J. MD NED Pascal/olivier , 11:04 AM , 11:12 AM
[2018-02-25] MEDS: Insulin NovoLOG Aspart Correctional Sugar Inj SQ SCH ×4 (11:37→21:17)
--- NOTE | 2018-02-25 11:43 | XR ---
EXAM DATE: 02/25/2018 11:27 AM EST AGE/SEX: 77 years / Female INDICATIONS: Left ankle pain after fall. CLINICAL DATA: This is the patient's initial encounter. Patient reports that signs and symptoms have been present for 4 - 6 days and indicates a pain score of 10/10. MEDICAL/SURGICAL HISTORY: None. None. COMPARISON: No prior exams available for comparison. FINDINGS: Multiple views left ankle were obtained and demonstrate diffuse soft tissue prominence greatest over the lateral malleolus. The distal tibia and fibula are intact. There are degenerative change involvin g the ankle mortise with sclerosis. The talus appears intact. There is deformity of the distal calcan eus which appears small and compressed on the lateral view. TR changes are noted involving the subtal ar joint, midfoot and hindfoot with CONCLUSION: 1. Abnormal appearing calcaneus of indeterminate age. There are no prior studies for comparison. If clinically indicated this could be further evaluated with CT. 2. Degenerative change involving the tibiotalar joint. The distal tibia and fibula are intact. Electronically signed by: Moris Cabral MD 02/25/2018 11:42 AM EST
--- NOTE | 2018-02-25 12:21 | P.PNFP ---
Subjective Interval history: There were no acute events overnight. She reports continued pain in the left arm, left knee, back, and left ankle. She was not able to be up and walking with physical therapy yesterday. She denies fever, chills, lightheadedness, dizziness, nausea, vomiting, shortness of breath, chest pain. She has no other complaints today. <Barney Zamora - 02/25/18 14:19> Results - Labs Result diagrams: 02/24/18 07:52 02/21/18 09:25 <Leonidas Cortes - 02/25/18 15:40> Abnormal lab results 02/24/18 02/24/18 02/25/18 Range/Units 17:20 23:04 09:45 POC Glucose 157 H 129 H 163 H (68-110) mg/dl 02/25/18 Range/Units 13:20 POC Glucose 154 H (68-110) mg/dl <Leonidas Cortes - 02/25/18 15:40> Abnormal lab results 02/24/18 02/24/18 02/24/18 Range/Units 12:25 17:20 23:04 POC Glucose 243 H 157 H 129 H (68-110) mg/dl 02/25/18 Range/Units 09:45 POC Glucose 163 H (68-110) mg/dl <Barney Zamora - 02/25/18 12:21> - Imaging Impressions Ankle X-Ray 02/25/18 00:00 CONCLUSION: 1. Abnormal appearing calcaneus of indeterminate age. There are no prior studies for comparison. If clinically indicated this could be further evaluated with CT. 2. Degenerative change involving the tibiotalar joint. The distal tibia and fibula are intact. <Leonidas Cortes - 02/25/18 15:40> Impressions Ankle X-Ray 02/25/18 00:00 CONCLUSION: 1. Abnormal appearing calcaneus of indeterminate age. There are no prior studies for comparison. If clinically indicated this could be further evaluated with CT. 2. Degenerative change involving the tibiotalar joint. The distal tibia and fibula are intact. <Barney Zamora - 02/25/18 12:21> Physical Exam Vital signs: Vital Signs 02/24/18 16:00 02/24/18 20:00 02/24/18 23:45 Temperature 99.2 F 99.1 F 98.9 F Pulse Rate 83 92 H 84 Respiratory Rate 15 20 20 Blood Pressure 142/79 H 128/81 179/74 H Pulse Oximetry 97 94 L 96 02/25/18 03:43 02/25/18 08:33 02/25/18 11:34 Temperature 98.5 F 97.9 F 98.3 F Pulse Rate 76 79 79 Respiratory Rate 16 16 18 Blood Pressure 137/72 169/77 H 169/74 H Pulse Oximetry 97 97 96 Intake & Output 02/24/18 02/25/18 02/25/18 18:59 06:59 18:59 Intake Total 1999 1000 / 1000 Balance 1999 1000 / 1000 Intake: IV 1999 1000 / 1000 NS Inj 1,000 ML @ 100 mls/hr IV 1999 / 1000 .CONT .Q10H [facility] Rx#:[id number] Other: # Voids 1 Date of Last Bowel Movement 02/20/18 <Leonidas Cortes - 02/25/18 15:40> Vital Signs 02/24/18 16:00 02/24/18 20:00 02/24/18 23:45 Temperature 99.2 F 99.1 F 98.9 F Pulse Rate 83 92 H 84 Respiratory Rate 15 20 20 Blood Pressure 142/79 H 128/81 179/74 H Pulse Oximetry 97 94 L 96 02/25/18 03:43 02/25/18 08:33 02/25/18 11:34 Temperature 98.5 F 97.9 F 98.3 F Pulse Rate 76 79 79 Respiratory Rate 16 16 18 Blood Pressure 137/72 169/77 H 169/74 H Pulse Oximetry 97 97 96 Intake & Output 02/24/18 02/25/18 02/25/18 18:59 06:59 18:59 Intake Total 1999 1000 / 1000 Balance 1999 1000 / 1000 Intake: IV 1999 1000 / 1000 NS Inj 1,000 ML @ 100 mls/hr IV 1999 1000 / 1000 .CONT .Q10H [facility] Rx#:[id number] Other: # Voids 1 Date of Last Bowel Movement 02/20/18 <Barney Zamora - 02/25/18 12:21> Narrative: General: Obese female, alert, and in no acute distress. Appears stated age. HEENT: Atraumatic, non-icteric sclera and no conjunctival injection, moist mucous membranes Neck: Supple, trachea midline Cardiac: Regular rate and rhythm without murmur Pulmonary: Non-labored breathing. Lungs clear to auscultation bilaterally with good air movement Abdomen: Normal bowel sounds, soft and non-tender without rebound or guarding Extremities: No edema, 2+ pedal pulses, capillary refill less than 2 seconds Left upper extremity has splint in place. Clean dry and intact, neurovascularly intact distal to the fracture. Left lower extremity continues to have ecchymosis over the prepatellar area with mild interval improvement from yesterday. It is not warm to the touch. She has tenderness to the left ankle. <Barney Zamora - 02/25/18 14:19> Assessment and Plan - Assessment (1) Closed fracture distal radius and ulna Code(s): S52.509A - Unspecified fracture of the lower end of unspecified radius , initial encounter for closed fracture; S52.609A - Unspecified fracture of lower end of unspecified ulna, initial encounter for closed fracture Status: Acute (2) Hematoma of left lower extremity Code(s): S80.12XA - Contusion of left lower leg, initial encounter Status: Acute (3) Fall Code(s): W19.XXXA - Unspecified fall, initial encounter Status: Acute (4) Diabetes mellitus Code(s): E11.9 - Type 2 diabetes mellitus without complications Status: Acute (5) Hypertension Code(s): I10 - Essential (primary) hypertension Status: Acute (6) GERD (gastroesophageal reflux disease) Code(s): K21.9 - Gastro-esophageal reflux disease without esophagitis Status: Acute (7) Sleep apnea Code(s): G47.30 - Sleep apnea, unspecified Status: Acute (8) Incontinence Code(s): R32 - Unspecified urinary incontinence Status: Acute (9) Diabetic neuropathy Code(s): E11.40 - Type 2 diabetes mellitus with diabetic neuropathy, unspecified Status: Acute <Leonidas Cortes - 02/25/18 15:40> (1) Closed fracture distal radius and ulna Code(s): S52.509A - Unspecified fracture of the lower end of unspecified radius , initial encounter for closed fracture; S52.609A - Unspecified fracture of lower end of unspecified ulna, initial encounter for closed fracture Status: Acute Plan: (2) Hematoma of left lower extremity Code(s): S80.12XA - Contusion of left lower leg, initial encounter Status: Acute Plan: (3) Fall Code(s): W19.XXXA - Unspecified fall, initial encounter Status: Acute Plan: (4) Diabetes mellitus Code(s): E11.9 - Type 2 diabetes mellitus without complications Status: Acute Plan: (5) Hypertension Code(s): I10 - Essential (primary) hypertension Status: Acute Plan: (6) GERD (gastroesophageal reflux disease) Code(s): K21.9 - Gastro-esophageal reflux disease without esophagitis Status: Acute Plan: (7) Sleep apnea Code(s): G47.30 - Sleep apnea, unspecified Status: Acute Plan: (8) Incontinence Code(s): R32 - Unspecified urinary incontinence Status: Acute Plan: (9) Diabetic neuropathy Code(s): E11.40 - Type 2 diabetes mellitus with diabetic neuropathy, unspecified Status: Acute Plan: <Barney Zamora - 02/25/18 14:20> - Assessment and Plan 77-year-old woman admitted after a fall where she felt lightheaded and was found to have a distal radius and ulnar fractures. She also has a hematoma of the left knee (s/p total knee replacement). She lives alone and ambulates at home with a walker and is unable to care for herself at home at this time. Nondisplaced fracture of the distal radius and ulna -No surgical intervention recommended by orthopedics -PT recommends PT at rehab -7 days a week, twice daily, PT while hospitalized Hematoma of left knee -Conservative treatment recommended by orthopedics Left ankle pain: -Ankle x-ray showed an abnormal calcaneus of indeterminate age -CT of the ankle ordered Back pain: -She has a significant history of back pain and prior back surgery. Due to her increasing pain during this hospitalization her surgeon, Dr. Petersen was consulted. Fall secondary to dizziness -Unsafe discharge at this time due to her deconditioning, orthostatic vitals did not show orthostatic hypotension Diabetes mellitus and peripheral neuropathy -Hold home medication sitagliptin -Blood glucose reasonably well controlled thus far -Low-dose sliding scale insulin aspart Continue home medication venlafaxine for neuropathy GERD -Continue home medication pantoprazole Sleep apnea -CPAP at night History of urinary incontinence -UA was negative, no further inpatient workup at this time Fluids: Adequate p.o. intake Electrolytes: monitor and replete as needed Nutrition: Diabetic diet GI prophylaxis: P.o. pantoprazole (not GI prophylaxis) VTE prophylaxis: Bilateral SCDs (no pharmacologic prophylaxis due to current hematoma) Disposition: She is currently under observation status because she does not meet inpatient criteria. She is not safe to discharge due to her mobility status. Seen and examined with Drs. Cortes and Rosy <Barney Zamora - 02/25/18 14:19> - Attending Attestation See the residents documentation for details. I saw and evaluated the patient regarding the panchal portions of this evaluation and agree with the residents findings and plans as written. Parts of this note were created using [employer] voice recognition software program. While efforts were made to correct any mistakes made by this software, some mistakes, errors, and omissions may remain in the final note that were not caught when the note was originally created. Plan of care was discussed and agreed upon with the patient as specifically documented in the above note. An opportunity to ask questions with explanation was provided. Patient voiced understanding on all information reviewed and discussed. <Leonidas Cortes - 02/25/18 15:40> <Barney Zamora - Last Filed: 02/25/18 14:20> (1) Closed fracture distal radius and ulna Qualifiers: Encounter type: initial encounter Laterality: left Qualified Code(s): S52.502A - Unspecified fracture of the lower end of left radius, initial encounter for closed fracture; S52.602A - Unspecified fracture of lower end of left ulna, initial encounter for closed fracture (2) Hematoma of left lower extremity Qualifiers: Encounter type: initial encounter Qualified Code(s): S80.12XA - Contusion of left lower leg, initial encounter (3) Fall Qualifiers: Encounter type: initial encounter Qualified Code(s): W19.XXXA - Unspecified fall, initial encounter <Leonidas Cortes - Last Filed: 02/25/18 15:40> (1) Closed fracture distal radius and ulna Qualifiers: Encounter type: initial encounter Laterality: left Qualified Code(s): S52.502A - Unspecified fracture of the lower end of left radius, initial encounter for closed fracture; S52.602A - Unspecified fracture of lower end of left ulna, initial encounter for closed fracture (2) Hematoma of left lower extremity Qualifiers: Encounter type: initial encounter Qualified Code(s): S80.12XA - Contusion of left lower leg, initial encounter (3) Fall Qualifiers: Encounter type: initial encounter Qualified Code(s): W19.XXXA - Unspecified fall, initial encounter <Barney Zamora - Last Filed: 02/25/18 14:20> (1) Closed fracture distal radius and ulna Qualifiers: Encounter type: initial encounter Laterality: left Qualified Code(s): S52.502A - Unspecified fracture of the lower end of left radius, initial encounter for closed fracture; S52.602A - Unspecified fracture of lower end of left ulna, initial encounter for closed fracture (2) Hematoma of left lower extremity Qualifiers: Encounter type: initial encounter Qualified Code(s): S80.12XA - Contusion of left lower leg, initial encounter (3) Fall Qualifiers: Encounter type: initial encounter Qualified Code(s): W19.XXXA - Unspecified fall, initial encounter <Leonidas Cortes - Last Filed: 02/25/18 15:40> (1) Closed fracture distal radius and ulna Qualifiers: Encounter type: initial encounter Laterality: left Qualified Code(s): S52.502A - Unspecified fracture of the lower end of left radius, initial encounter for closed fracture; S52.602A - Unspecified fracture of lower end of left ulna, initial encounter for closed fracture (2) Hematoma of left lower extremity Qualifiers: Encounter type: initial encounter Qualified Code(s): S80.12XA - Contusion of left lower leg, initial encounter (3) Fall Qualifiers: Encounter type: initial encounter Qualified Code(s): W19.XXXA - Unspecified fall, initial encounter
--- NOTE | 2018-02-25 13:39 | P.CONNS ---
History of Present Illness Service: neurosurgery Consult date: 02/25/18 Requesting Physician: Parminder Julien Reason for Consult: evaluate back Primary Care Provider: Marshall Cali MD History of Present Illness: Ms. Jackson is a 77-year-old female presenting to the ED with recent fall and subsequent left wrist fracture. she reports that she was watching TV when she mary from a sitting position attempted to take 2 steps and then fell forward striking her L head against a chest of drawers after experiencing a short episode of dizziness. She did not lose consciousness during the fall and fell onto her left outstretched arm and knee. No seizure activity. No tongue bitting. No incontinence of stool or urine She was unable to pick herself off the floor and began to scream for help. Her neighbor overheard and used her spare panchal to come a sister. [facility] was called and patient presented to ED. She reports severe focal pain and her left upper extremity and left knee with full body tenderness. Patient was further evaluated with multiple imaging studies and found to have a nondisplaced fracture of the distal radius and ulna. She was then admitted as she is a unsafe discharge as she currently lives alone and has decreased mobility. She denies any fevers, chills, shortness of breath , chest pain, NV, abdominal pain, or calf tenderness at this time. her family history was reviewed and was noncontributory to the present admission Review of Systems All other systems reviewed negative except as stated in HPI [facility] - History History Provided By: Patient - Medical History Medical History: Medical History (Last Reviewed 02/26/18 @ 13:11 by Deshawn Petersen MD) Wilkinson esophagus Breast cancer Cataracts, bilateral Constipation Depression Diabetes Diverticulosis Esophagitis GERD (gastroesophageal reflux disease) High cholesterol Hypertension Incontinence Osteoporosis Sleep apnea - Surgical History Surgical History: Surgical History (Last Reviewed 02/26/18 @ 13:11 by Deshawn Petersen MD) H/O cardiac catheterization H/O total knee replacement History of appendectomy History of hip surgery History of lumbar surgery History of tonsillectomy Hx of cholecystectomy S/P wrist surgery - Tobacco History Second Hand Smoke Exposure: No Smoking Status: Never smoker - Alcohol History How Often Do You Have a Drink Containing Alcohol: Never - Substance Use History Substance History: No History of Abuse - Travel History Recent Travel in the [facility] Within the Last 8 Weeks: No - Immunization History Tetanus Immunization: >5 Years Medications and Allergies Active Medications: Active Medications Al Hydroxide/Mg Hydroxide (Milk Of Magnesia Liq) 30 ml PO Q12H PRN PRN Reason: Mild Constipation Aspirin (Ecotrin) 81 mg PO DAILY [facility] Last Admin: 02/25/18 08:12 Dose: 81 mg Bisacodyl (Dulcolax Supp) 10 mg RECTAL DAILY PRN PRN Reason: SEVERE CONSITIPATION Calcium/Vitamin D (Oscal With D 250/125 Mg) 2 tab PO DAILY [facility] Last Admin: 02/25/18 08:13 Dose: 2 tab Carvedilol (Coreg) 3.125 mg PO BID [facility] Last Admin: 02/25/18 08:13 Dose: 3.125 mg Dextrose (D50w Vial) 50 ml IV.PUSH UNSCH PRN PRN Reason: PER HYPOGLYCEMIA PROTOCOL Glucagon (Glucagon Inj) 1 mg OTHER PRN PRN PRN Reason: for Hypoglycemia Protocol Hydrochlorothiazide (Microzide) 12.5 mg PO DAILY [facility] Last Admin: 02/25/18 08:12 Dose: 12.5 mg Sodium Chloride (Ns Inj) 1,000 mls @ 100 mls/hr IV.CONT .Q10H [facility] Last Admin: 02/25/18 10:36 Dose: 100 mls/hr Insulin Aspart (Novolog Insulin Correctional Sugar Inj) 0 unit SQ ACHS [facility]; Protocol Last Admin: 02/25/18 11:37 Dose: Not Given Lactulose (Lactulose Liq) 30 ml PO DAILY PRN PRN Reason: SEVERE CONSITIPATION Losartan Potassium (Cozaar) 100 mg PO DAILY [facility] Last Admin: 02/25/18 08:12 Dose: 100 mg Magnesium Oxide (Mag-Ox) 400 mg PO DAILY [facility] Last Admin: 02/25/18 08:12 Dose: 400 mg Naloxone HCl (Narcan Inj) 0.4 mg IV.PUSH UNSCH PRN PRN Reason: SEE LABEL COMMENTS Ondansetron HCl (Zofran Inj) 4 mg IV.PUSH Q6H PRN PRN Reason: nausea/vomiting Last Admin: 02/21/18 16:01 Dose: 4 mg Oxycodone HCl (Roxicodone) 5 mg PO Q4H PRN PRN Reason: PAIN SCALE 3 TO 5 Last Admin: 02/25/18 07:52 Dose: 5 mg Oxycodone HCl (Roxicodone) 10 mg PO Q4H PRN PRN Reason: PAIN SCALE 6 TO 10 Last Admin: 02/25/18 10:16 Dose: 10 mg Pantoprazole Sodium (Protonix) 40 mg PO DAILY [facility] Last Admin: 02/25/18 08:13 Dose: 40 mg Pt:Letrozole 2.5 Mg 0 each PO DAILY [facility] Last Admin: 02/25/18 08:14 Dose: 2.5 each Pravastatin Sodium (Pravachol) 40 mg PO HS [facility] Last Admin: 02/24/18 20:50 Dose: 40 mg Senna/Docusate Sodium (Ligia-Colace) 1 tab PO BID [facility] Last Admin: 02/25/18 08:13 Dose: 1 tab Sennosides (Senokot) 17.2 mg PO Q12H PRN PRN Reason: Moderate Constipation Sodium Chloride (Ns Flush) 2 ml IV.FLUSH BID [facility] Last Admin: 02/25/18 08:13 Dose: 2 ml Sodium Chloride (Ns Flush) 2 ml IV.FLUSH PRN PRN PRN Reason: FLUSH AFTER USING IV ACCESS Sodium Chloride (Ns Flush) 2 ml IV.FLUSH BID [facility] Last Admin: 02/25/18 10:37 Dose: Not Given Sodium Chloride (Ns Flush) 2 ml IV.FLUSH PRN PRN PRN Reason: FLUSH AFTER USING IV ACCESS Venlafaxine HCl (Effexor Xr) 75 mg PO DAILY [facility] Last Admin: 02/25/18 08:12 Dose: 75 mg Allergies Allergy/AdvReac Type Severity Reaction Status Date / Time adhesive Allergy Severe Rash Verified 02/20/18 15:19 gabapentin Allergy Severe Anaphylaxis Verified 02/20/18 15:19 Sulfa (Sulfonamide Allergy Severe RASH/SWELLI Verified 02/20/18 15:19 Antibiotics) NG codeine Allergy Mild RASH/SWELLI Verified 02/20/18 15:19 NG Home Medications Medication Instructions Recorded Confirmed Type aspirin [Enteric Coated Aspirin] 81 mg PO DAILY 02/05/18 02/20/18 History calcium carbonate-vitamin D3 600 mg PO DAILY 02/05/18 02/20/18 History [Calcium 600 + D(3)] letrozole 2.5 mg PO DAILY 02/05/18 02/20/18 History magnesium oxide 400 mg PO DAILY 02/05/18 02/20/18 History pantoprazole 40 mg PO DAILY 02/05/18 02/20/18 History simvastatin 20 mg PO QPM 02/05/18 02/20/18 History venlafaxine 75 mg PO DAILY 02/05/18 02/20/18 History sitagliptin [Januvia] 50 mg PO DAILY 02/20/18 02/20/18 History Exam Vital signs: Vital Signs 02/24/18 16:00 02/24/18 20:00 02/24/18 23:45 Temperature 99.2 F 99.1 F 98.9 F Pulse Rate 83 92 H 84 Respiratory Rate 15 20 20 Blood Pressure 142/79 H 128/81 179/74 H Pulse Oximetry 97 94 L 96 02/25/18 03:43 02/25/18 08:33 02/25/18 11:34 Temperature 98.5 F 97.9 F 98.3 F Pulse Rate 76 79 79 Respiratory Rate 16 16 18 Blood Pressure 137/72 169/77 H 169/74 H Pulse Oximetry 97 97 96 Intake & Output 02/24/18 02/25/18 02/25/18 18:59 06:59 18:59 Intake Total 1999 1000 / 1000 Balance 1999 1000 / 1000 Intake: IV 1999 1000 / 1000 NS Inj 1,000 ML @ 100 mls/hr IV 1999 1000 / 1000 .CONT .Q10H [facility] Rx#:[id number] Other: # Voids 1 Date of Last Bowel Movement 02/20/18 Narrative: The patient is alert, awake. Comfortable, in no acute distress. Speech is fluent. Cranial nerve examination: pupils to be equal, round and reactive to light. Extra-ocular movements are intact. Facial motor and sensory function are normal and symmetrical. Sternocleidomastoid and trapezius muscles are symmetrical. Other cranial nerves are intact. Neck is soft and supple with a good range of motion without pain. Left upper extremity has splint in place. Clean dry and intact, neurovascularly intact distal to the fracture. Left lower extremity with ecchymosis over the prepatellar area. Muscle strength is normal in all muscle groups of both upper and lower extremities. Sensory examination is intact to light touch and pin prick in both the upper and lower extremities. Deep tendon reflexes are symmetrical in both upper and lower extremities. There is a bilateral plantar flexion response. Cerebellar examination is unremarkable, without deficits. Lungs are clear Heart regular rhythm is regular rate Skin warm and dry Results - Laboratory Findings CBC and BMP: 03/02/18 05:39 03/02/18 05:39 Abnormal lab findings: Abnormal Labs 02/20/18 02/20/18 02/20/18 15:00 15:00 15:00 RBC 3.81 L Hgb Hct Neut % (Auto) 73.7 H Neut # (Auto) 7.9 H Estimated GFR 63 L POC Glucose Random Glucose 159 H Calcium Troponin I Less than 0.02 L Albumin 3.3 L Vitamin D 25-Hydroxy Urine Clarity Urine Mucus 02/20/18 02/20/18 02/21/18 16:30 23:35 09:19 RBC Hgb Hct Neut % (Auto) Neut # (Auto) Estimated GFR POC Glucose 152 H 143 H Random Glucose Calcium Troponin I Albumin Vitamin D 25-Hydroxy Urine Clarity Hazy H Urine Mucus Few H 02/21/18 02/21/18 02/21/18 09:25 09:25 12:26 RBC 3.55 L Hgb 11.3 L Hct 34.5 L Neut % (Auto) Neut # (Auto) Estimated GFR 73 L POC Glucose 146 H Random Glucose 141 H Calcium 7.9 L D Troponin I Albumin Vitamin D 25-Hydroxy 23.3 L Urine Clarity Urine Mucus 02/21/18 02/22/18 02/22/18 22:08 04:31 09:14 RBC Hgb Hct Neut % (Auto) Neut # (Auto) Estimated GFR POC Glucose 161 H 152 H 138 H Random Glucose Calcium Troponin I Albumin Vitamin D 25-Hydroxy Urine Clarity Urine Mucus 02/22/18 02/22/18 02/22/18 12:15 17:09 22:15 RBC Hgb Hct Neut % (Auto) Neut # (Auto) Estimated GFR POC Glucose 169 H 133 H 179 H Random Glucose Calcium Troponin I Albumin Vitamin D 25-Hydroxy Urine Clarity Urine Mucus 02/23/18 02/23/18 02/23/18 07:43 12:24 13:22 RBC Hgb Hct Neut % (Auto) Neut # (Auto) Estimated GFR POC Glucose 146 H 189 H Random Glucose Calcium Troponin I Less than 0.02 L Albumin Vitamin D 25-Hydroxy Urine Clarity Urine Mucus 02/23/18 02/23/18 02/24/18 17:03 22:37 07:52 RBC Hgb 11.3 L Hct 34.5 L Neut % (Auto) Neut # (Auto) Estimated GFR POC Glucose 173 H 157 H Random Glucose Calcium Troponin I Albumin Vitamin D 25-Hydroxy Urine Clarity Urine Mucus 02/24/18 02/24/18 02/24/18 08:41 12:25 17:20 RBC Hgb Hct Neut % (Auto) Neut # (Auto) Estimated GFR POC Glucose 157 H 243 H 157 H Random Glucose Calcium Troponin I Albumin Vitamin D 25-Hydroxy Urine Clarity Urine Mucus 02/24/18 02/25/18 23:04 09:45 RBC Hgb Hct Neut % (Auto) Neut # (Auto) Estimated GFR POC Glucose 129 H 163 H Random Glucose Calcium Troponin I Albumin Vitamin D 25-Hydroxy Urine Clarity Urine Mucus Assessment and Plan - Plan 77-year-old female with closed left minimally displaced distal radius and ulnar styloid fractures along with left knee hematoma Hip X-Ray 02/20/18 00:00 CONCLUSION: 1. Intact pelvis and left hip. 2. Healed left intertrochanteric fracture post nail and akosua fixation. Cervical Spine CT 02/20/18 15:28 CONCLUSION: 1. Stable osteopenia and degenerative changes are noted throughout the cervical spine. 2. Mild broad-based bulging with disc osteophyte complex at C5-6. 3. No significant changes are seen compared to the prior exam. Face CT 02/20/18 15:28 CONCLUSION: 1. No acute bony fracture. 2. Chronic sinus disease in the right sphenoid and ethmoid sinuses. 3. 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 Head CT 02/20/18 15:28 CONCLUSION: 1. No focal or acute intracranial hemorrhage. 2. Stable bilateral cortical atrophy and chronic white matter changes. . Knee X-Ray 02/20/18 15:28 CONCLUSION: 1. Status post left knee arthroplasty. No radiographic evidence for hardware failure. 2. No acute fracture. Shoulder X-Ray 02/20/18 15:28 CONCLUSION: Degenerative changes suggesting chronic rotator cuff tear. Fracture not appreciated. Wrist X-Ray 02/20/18 15:28 CONCLUSION: Nondisplaced fracture of the distal radius and ulna. Diffuse osteopenia Lower Extremity Ultrasound 02/21/18 00:00 CONCLUSION: There are 3 adjacent and potentially connecting heterogeneous fluid collections in the prepatellar region of the left knee. The appearance and recent trauma, these could represent Thomson-Brittani lesions or combination of a simple edema and hematomas. Ankle X-Ray 02/25/18 00:00 CONCLUSION: 1. Abnormal appearing calcaneus of indeterminate age. There are no prior studies for comparison. If clinically indicated this could be further evaluated with CT. 2. Degenerative change involving the tibiotalar joint. The distal tibia and fibula are intact. Neuro: neuro checks in a serial fashion. Chronic back pain. Recommend non surgical management Wrist fracture. Defer to ortho Pulmonary: aggressive pulmonary toilette, nasotracheal suction, and breathing treatments with nebulizers. Daily PT and OT Renal: Continue to monitor closely urine output, BUN and creatinine Endocrine: Continue to Monitor serial Acu checks and SSI as needed in detail ID continue to monitor for signs of infection Continue Protonix for stress ulcer prophylaxis Continue Hung hose and SCD's for DVT prophylaxis Further recommendations will be provided depending on the patient's clinical evaluation and follow up studies.
[2018-02-26] MEDS: Sod Chloride 0.9% Inj 1,000 ML IV.CONT SCH ×3 (00:46→18:52)
[2018-02-26] MEDS: Magnesium Oxide 400 MG Tablet PO SCH (08:32)
[2018-02-26] MEDS: Venlafaxine XR 75 MG Capsule PO SCH (08:32)
[2018-02-26] MEDS: Calcium/Vitamin D 250/125 MG Tablet PO SCH (08:33)
[2018-02-26] MEDS: Senna/Docusate Sodium 8.6/50 MG Tablet PO SCH ×2 (08:33→22:44)
[2018-02-26] MEDS: PT:LETROZOLE 2.5 MG PO SCH (08:34)
--- NOTE | 2018-02-26 10:24 | XR ---
EXAM DATE: 02/26/2018 10:09 AM EST AGE/SEX: 77 years / Female INDICATIONS: Left shoulder pain. Fell 6 days ago. CLINICAL DATA: This is the patient's initial encounter. Patient reports that signs and symptoms have been present for 4 - 6 days and indicates a pain score of 10/10. MEDICAL/SURGICAL HISTORY: . fractured left wrist. . left knee arthroplasty COMPARISON: [facility] [place], SHOULDER COMPLETE LEFT, 02/20/2018. . FINDINGS: Bony structures are intact and in normal alignment. Joints are intact without dislocation or signifi cant arthropathy. Osseous density is normal. Soft tissues are unremarkable. No radiopaque foreign bodies seen. CONCLUSION: Negative trauma study with no acute fracture or malalignment. Electronically signed by: Moris Cabral MD 02/26/2018 10:22 AM EST
--- NOTE | 2018-02-26 10:53 | CT ---
EXAM DATE: 02/26/2018 10:28 AM EST AGE/SEX: 77 years / Female INDICATIONS: Left ankle pain. Fell 1 week ago. Abnormal calcaneus on x-ray. CLINICAL DATA: This is the patient's initial encounter. Patient reports that signs and symptoms have been present for 1 week and indicates a pain score of 8/10. MEDICAL/SURGICAL HISTORY: Carcinoma, breast. Cardiovascular disease. Hypertension. Wilkinson's esophagus. Diabetes. None. RADIATION DOSE: 6.30 CTDI (mGy) COMPARISON: [facility], ANKLE COMPLETE LEFT MIN 3V, 02/25/2018. . TECHNIQUE: Multiple contiguous axial images were acquired using a multirow detector CT scanner witho ut contrast. Multiplanar reconstruction was performed in the sagittal and coronal planes. Using aut omated exposure control and adjustment of the mA and/or kV according to patient size, radiation dose was kept as low as reasonably achievable to obtain optimal diagnostic quality images. DICOM format i mage data is available electronically for review and comparison. FINDINGS: Bones: There is diffuse osteopenia with no acute fracture or malalignment. The ankle mortise is mild ly widened along the lateral aspect compared to the medial aspect with mild degenerative changes with sclerosis. There are multiple small well-corticated ossific structures along the medial malleolus. T he distal fibula is intact. The calcaneus is intact with no acute fracture. There are mild degenerati ve changes in the mid and hindfoot. There is diffuse soft tissue swelling. There is a small spur off the inferior calcaneus at the site of attachment of plantar aponeurosis. There are adjacent small vega ign calcifications. Joints: No significant arthropathy or bony hypertrophy is seen. Soft Tissues: No soft tissue mass is seen. Other: No foreign bodies seen. CONCLUSION: 1. Soft tissue swelling with no acute fracture or malalignment. 2. Mild widening of the lateral ankle mortise compared to the medial mortise which could indicate li gamentous injury or instability of indeterminate age. 3. Mild diffuse osteoarthritic changes. 4. Diffuse osteopenia. Electronically signed by: Moris Cabral MD 02/26/2018 10:51 AM EST
--- NOTE | 2018-02-26 11:27 | P.PNFP ---
Subjective Interval history: There were no acute events overnight. She reports continued pain in the left arm, left knee, back, and left ankle. She reports pain in the left shoulder this morning. She was able to stand and transfer to a chair with physical therapy, however has not been able to walk secondary to pain and deconditioning. She denies fever, chills, lightheadedness, dizziness, nausea, vomiting, shortness of breath, chest pain. <Barney Zamora - 02/26/18 11:27> Results - Labs Result diagrams: 02/24/18 07:52 02/21/18 09:25 <Leonidas Cortes - 02/27/18 13:56> Abnormal lab results 02/26/18 02/26/18 02/27/18 Range/Units 17:25 22:32 03:47 POC Glucose 167 H 165 H 155 H (68-110) mg/dl Urine Clarity (Clear) Urine Protein (Neg-Trace) mg/dL Urine Bacteria (None) /hpf 02/27/18 02/27/18 02/27/18 Range/Units 05:25 08:34 12:38 POC Glucose 163 H 186 H (68-110) mg/dl Urine Clarity Hazy H (Clear) Urine Protein 100 H (Neg-Trace) mg/dL Urine Bacteria Rare H (None) /hpf Urine 02/27/18 Range/Units 05:25 Urine Color Jessica (Yellw/Straw) Urine Clarity Hazy H (Clear) Urine pH 5.0 (5.0-8.5) Ur Specific [place] 1.019 (1.002-1.035) Urine Protein 100 H (Neg-Trace) mg/dL Urine Glucose (UA) Negative (Negative) mg/dL <Leonidas Cortes - 02/27/18 13:56> Abnormal lab results 02/25/18 02/25/18 02/25/18 Range/Units 13:20 17:14 21:04 POC Glucose 154 H 151 H 148 H (68-110) mg/dl 02/26/18 Range/Units 03:29 POC Glucose 165 H (68-110) mg/dl <Barney Zamora - 02/26/18 11:27> - Imaging Impressions Ankle X-Ray 02/25/18 00:00 CONCLUSION: 1. Abnormal appearing calcaneus of indeterminate age. There are no prior studies for comparison. If clinically indicated this could be further evaluated with CT. 2. Degenerative change involving the tibiotalar joint. The distal tibia and fibula are intact. Ankle CT 02/26/18 00:00 CONCLUSION: 1. Soft tissue swelling with no acute fracture or malalignment. 2. Mild widening of the lateral ankle mortise compared to the medial mortise which could indicate ligamentous injury or instability of indeterminate age. 3. Mild diffuse osteoarthritic changes. 4. Diffuse osteopenia. Shoulder X-Ray 02/26/18 00:00 CONCLUSION: Negative trauma study with no acute fracture or malalignment. <Barney Zamora - 02/26/18 11:27> Physical Exam Vital signs: Vital Signs 02/26/18 16:00 02/26/18 20:00 02/27/18 04:00 Temperature 99.5 F 101.3 F H 99.0 F Pulse Rate 101 H 103 H 90 Respiratory Rate 18 19 18 Blood Pressure 159/72 H 142/65 H 128/60 Pulse Oximetry 93 L 92 L 96 02/27/18 08:00 02/27/18 08:19 02/27/18 12:00 Temperature 97.8 F 98.9 F Pulse Rate 75 80 Respiratory Rate 17 16 Blood Pressure 145/78 H 142/67 H Pulse Oximetry 96 96 98 02/27/18 12:35 Temperature Pulse Rate Respiratory Rate 17 Blood Pressure Pulse Oximetry Intake & Output 02/26/18 02/27/18 02/27/18 18:59 06:59 18:59 Intake Total 1000 / 1000 1000 / 1000 Balance 1000 / 1000 1000 / 1000 Weight 136.4 kg Intake: IV 1000 / 1000 1000 / 1000 NS Inj 1,000 ML @ 100 mls/hr IV 1000 / 1000 1000 / 1000 .CONT .Q10H REPLACED BY [facility] Rx#:[id number] Other: # Incontinent Voids 2 Date of Last Bowel Movement 02/20/18 02/20/18 <Leonidas Cortes - 02/27/18 13:56> Vital Signs 02/25/18 11:34 02/25/18 15:45 02/25/18 20:00 Temperature 98.3 F 97.8 F 99.0 F Pulse Rate 79 87 96 H Respiratory Rate 18 18 20 Blood Pressure 169/74 H 124/59 L 166/74 H Pulse Oximetry 96 92 L 92 L 02/25/18 22:28 02/25/18 23:53 02/26/18 03:38 Temperature 100.3 F H 98.8 F Pulse Rate 88 86 Respiratory Rate 16 18 20 Blood Pressure 146/67 H 156/70 H Pulse Oximetry 93 L 93 L 02/26/18 07:25 Temperature 99.3 F Pulse Rate 90 Respiratory Rate 18 Blood Pressure 148/68 H Pulse Oximetry 94 L Intake & Output 02/25/18 02/26/18 02/26/18 18:59 06:59 18:59 Intake Total 1000 / 1000 220 / 220 Output Total 500 / 500 Balance 1000 / 1000 -280 / -280 Weight 139.1 kg Intake: IV 1000 / 1000 NS Inj 1,000 ML @ 100 mls/hr IV 1000 / 1000 .CONT .Q10H [facility] Rx#:[id number] Oral 220 / 220 Output: Urine 500 / 500 Other: # Voids 1 2 # Incontinent Voids 2 # Urine Diapers 2 <Barney Zamora - 02/26/18 11:27> Narrative: General: Obese female, alert, and in no acute distress. Appears stated age. HEENT: Atraumatic, non-icteric sclera and no conjunctival injection, moist mucous membranes Neck: Supple, trachea midline Cardiac: Regular rate and rhythm without murmur Pulmonary: Non-labored breathing. Lungs clear to auscultation bilaterally with good air movement Abdomen: Normal bowel sounds, soft and non-tender without rebound or guarding Extremities: No edema, 2+ pedal pulses, capillary refill less than 2 seconds Left upper extremity has splint in place. Clean dry and intact, neurovascularly intact distal to the fracture. Left lower extremity with improving ecchymosis over the prepatellar area. It is not warm to the touch. She has tenderness to the left ankle and to the popliteal fossa. Significant pain with ROM of the knee. Shoulder is painful to palpation and with ROM. <Barney Zamora - 02/26/18 11:27> Assessment and Plan - Assessment (1) Closed fracture distal radius and ulna Code(s): S52.509A - Unspecified fracture of the lower end of unspecified radius , initial encounter for closed fracture; S52.609A - Unspecified fracture of lower end of unspecified ulna, initial encounter for closed fracture Status: Acute (2) Hematoma of left lower extremity Code(s): S80.12XA - Contusion of left lower leg, initial encounter Status: Acute (3) Fall Code(s): W19.XXXA - Unspecified fall, initial encounter Status: Acute (4) Diabetes mellitus Code(s): E11.9 - Type 2 diabetes mellitus without complications Status: Acute (5) Hypertension Code(s): I10 - Essential (primary) hypertension Status: Acute (6) GERD (gastroesophageal reflux disease) Code(s): K21.9 - Gastro-esophageal reflux disease without esophagitis Status: Acute (7) Sleep apnea Code(s): G47.30 - Sleep apnea, unspecified Status: Acute (8) Incontinence Code(s): R32 - Unspecified urinary incontinence Status: Acute (9) Diabetic neuropathy Code(s): E11.40 - Type 2 diabetes mellitus with diabetic neuropathy, unspecified Status: Acute <Leonidas Cortes - 02/27/18 13:56> (1) Closed fracture distal radius and ulna Code(s): S52.509A - Unspecified fracture of the lower end of unspecified radius , initial encounter for closed fracture; S52.609A - Unspecified fracture of lower end of unspecified ulna, initial encounter for closed fracture Status: Acute Plan: (2) Hematoma of left lower extremity Code(s): S80.12XA - Contusion of left lower leg, initial encounter Status: Acute Plan: (3) Fall Code(s): W19.XXXA - Unspecified fall, initial encounter Status: Acute Plan: (4) Diabetes mellitus Code(s): E11.9 - Type 2 diabetes mellitus without complications Status: Acute Plan: (5) Hypertension Code(s): I10 - Essential (primary) hypertension Status: Acute Plan: (6) GERD (gastroesophageal reflux disease) Code(s): K21.9 - Gastro-esophageal reflux disease without esophagitis Status: Acute Plan: (7) Sleep apnea Code(s): G47.30 - Sleep apnea, unspecified Status: Acute Plan: (8) Incontinence Code(s): R32 - Unspecified urinary incontinence Status: Acute Plan: (9) Diabetic neuropathy Code(s): E11.40 - Type 2 diabetes mellitus with diabetic neuropathy, unspecified Status: Acute Plan: <Barney Zamora - 02/26/18 11:13> - Assessment and Plan 77-year-old woman admitted after a fall where she felt lightheaded and was found to have a distal radius and ulnar fractures. She also has a hematoma of the left knee (s/p total knee replacement). She lives alone and ambulates at home with a walker and is unable to care for herself at home at this time. Nondisplaced fracture of the distal radius and ulna -No surgical intervention recommended by orthopedics -PT recommends PT at rehab -7 days a week, twice daily, PT while hospitalized Fall secondary to dizziness -Unsafe discharge at this time due to her deconditioning, orthostatic vitals did not show orthostatic hypotension Hematoma of left knee: Hx of arthroplasty. No malalignment of hardware on XR -Conservative treatment recommended by orthopedics Left Should Pain: XR L shoulder negative for fracture or malalignment Left ankle pain: -Ankle x-ray showed an abnormal calcaneus of indeterminate age -CT of the ankle showed no acute fracture or malalignment. It did show mild widening of the lateral ankle mortis which may indicate some ligamentous injury or instability Back pain: -She has a significant history of back pain and prior back surgery. Due to her increasing pain during this hospitalization her surgeon, Dr. Petersen was consulted. Diabetes mellitus and peripheral neuropathy -Hold home medication sitagliptin -Blood glucose reasonably well controlled thus far -Low-dose sliding scale insulin aspart Continue home medication venlafaxine for neuropathy GERD -Continue home medication pantoprazole Sleep apnea -CPAP at night History of urinary incontinence -UA was negative, no further inpatient workup at this time Fluids: Adequate p.o. intake Electrolytes: monitor and replete as needed Nutrition: Diabetic diet GI prophylaxis: P.o. pantoprazole (not GI prophylaxis) VTE prophylaxis: Bilateral SCDs (no pharmacologic prophylaxis due to current hematoma) Disposition: She is currently under observation status because she does not meet inpatient criteria. She is not safe to discharge due to her mobility status. Seen and examined with Drs. Cortes and Teresa <Barney Zamora - 02/26/18 11:27> - Attending Attestation See the residents documentation for details. I saw and evaluated the patient regarding the panchal portions of this evaluation and agree with the residents findings and plans as written. Parts of this note were created using [employer] voice recognition software program. While efforts were made to correct any mistakes made by this software, some mistakes, errors, and omissions may remain in the final note that were not caught when the note was originally created. Plan of care was discussed and agreed upon with the patient as specifically documented in the above note. An opportunity to ask questions with explanation was provided. Patient voiced understanding on all information reviewed and discussed. <Leonidas Cortes - 02/27/18 13:56> <Barney Zamora - Last Filed: 02/26/18 11:13> (1) Closed fracture distal radius and ulna Qualifiers: Encounter type: initial encounter Laterality: left Qualified Code(s): S52.502A - Unspecified fracture of the lower end of left radius, initial encounter for closed fracture; S52.602A - Unspecified fracture of lower end of left ulna, initial encounter for closed fracture (2) Hematoma of left lower extremity Qualifiers: Encounter type: initial encounter Qualified Code(s): S80.12XA - Contusion of left lower leg, initial encounter (3) Fall Qualifiers: Encounter type: initial encounter Qualified Code(s): W19.XXXA - Unspecified fall, initial encounter <Leonidas Cortes - Last Filed: 02/27/18 13:56> (1) Closed fracture distal radius and ulna Qualifiers: Encounter type: initial encounter Laterality: left Qualified Code(s): S52.502A - Unspecified fracture of the lower end of left radius, initial encounter for closed fracture; S52.602A - Unspecified fracture of lower end of left ulna, initial encounter for closed fracture (2) Hematoma of left lower extremity Qualifiers: Encounter type: initial encounter Qualified Code(s): S80.12XA - Contusion of left lower leg, initial encounter (3) Fall Qualifiers: Encounter type: initial encounter Qualified Code(s): W19.XXXA - Unspecified fall, initial encounter <Barney Zamora - Last Filed: 02/26/18 11:13> (1) Closed fracture distal radius and ulna Qualifiers: Encounter type: initial encounter Laterality: left Qualified Code(s): S52.502A - Unspecified fracture of the lower end of left radius, initial encounter for closed fracture; S52.602A - Unspecified fracture of lower end of left ulna, initial encounter for closed fracture (2) Hematoma of left lower extremity Qualifiers: Encounter type: initial encounter Qualified Code(s): S80.12XA - Contusion of left lower leg, initial encounter (3) Fall Qualifiers: Encounter type: initial encounter Qualified Code(s): W19.XXXA - Unspecified fall, initial encounter <Leonidas Cortes - Last Filed: 02/27/18 13:56> (1) Closed fracture distal radius and ulna Qualifiers: Encounter type: initial encounter Laterality: left Qualified Code(s): S52.502A - Unspecified fracture of the lower end of left radius, initial encounter for closed fracture; S52.602A - Unspecified fracture of lower end of left ulna, initial encounter for closed fracture (2) Hematoma of left lower extremity Qualifiers: Encounter type: initial encounter Qualified Code(s): S80.12XA - Contusion of left lower leg, initial encounter (3) Fall Qualifiers: Encounter type: initial encounter Qualified Code(s): W19.XXXA - Unspecified fall, initial encounter
[2018-02-26] MEDS: Insulin NovoLOG Aspart Correctional Sugar Inj SQ SCH ×4 (13:06→22:44)
[2018-02-27] MEDS ORDERED: Naloxone Inj 0.4 MG/ML Vial IV.PUSH PRN (00:58)
[2018-02-27] MEDS: Acetaminophen 325 MG Tablet PO PRN (01:26)
[2018-02-27] MEDS: Sod Chloride 0.9% Inj 1,000 ML IV.CONT SCH ×2 (05:21→15:21)
[2018-02-27 06:00] LABS: Bacteria,Urine Rare /hpf; Bilirubin,Urine Negative (Negative); Clarity,Urine Hazy (Clear); Color,Urine Amber (Yellw/Straw); Glucose,Urine (UA) Negative (Negative); Leukocyte Esterase,Urine Negative (Negative); Nitrite,Urine Negative (Negative); Specific Gravity,Urine 1.019 (1.002-1.035); Squamous Epithelial Cell,Urine <1 /hpf (0-5); Urobilinogen,Urine 4 or Greater mg/dL (Less than 2)
[2018-02-27] MEDS: Senna/Docusate Sodium 8.6/50 MG Tablet PO SCH ×2 (08:23→21:38)
[2018-02-27] MEDS: Venlafaxine XR 75 MG Capsule PO SCH (08:23)
[2018-02-27] MEDS: Calcium/Vitamin D 250/125 MG Tablet PO SCH (08:24)
[2018-02-27] MEDS: Magnesium Oxide 400 MG Tablet PO SCH (08:24)
[2018-02-27] MEDS: PT:LETROZOLE 2.5 MG PO SCH (08:26)
[2018-02-27] MEDS: Insulin NovoLOG Aspart Correctional Sugar Inj SQ SCH ×4 (11:07→21:40)
--- NOTE | 2018-02-27 11:25 | P.PNFP ---
Subjective Interval history: Patient seen and examined this morning. Patient reports improved pain left arm, decrease pain in left leg. She states she has been working with a physical therapist and has been able to stand several times today. She denies nausea, vomiting, fever, chills, abdominal pain, chest pain, shortness of breath, lightheadedness, dizziness, changes in urination. She reports she has not passed a bowel movement several days. <Moris Moore - 02/27/18 11:25> Results - Labs Result diagrams: 02/24/18 07:52 02/21/18 09:25 <Leonidas Cortes - 02/27/18 14:41> Abnormal lab results 02/26/18 02/26/18 02/27/18 Range/Units 17:25 22:32 03:47 POC Glucose 167 H 165 H 155 H (68-110) mg/dl Urine Clarity (Clear) Urine Protein (Neg-Trace) mg/dL Urine Bacteria (None) /hpf 02/27/18 02/27/18 02/27/18 Range/Units 05:25 08:34 12:38 POC Glucose 163 H 186 H (68-110) mg/dl Urine Clarity Hazy H (Clear) Urine Protein 100 H (Neg-Trace) mg/dL Urine Bacteria Rare H (None) /hpf Urine 02/27/18 Range/Units 05:25 Urine Color Jessica (Yellw/Straw) Urine Clarity Hazy H (Clear) Urine pH 5.0 (5.0-8.5) Ur Specific [place] 1.019 (1.002-1.035) Urine Protein 100 H (Neg-Trace) mg/dL Urine Glucose (UA) Negative (Negative) mg/dL <Leonidas Cortes - 02/27/18 14:41> Abnormal lab results 02/26/18 02/26/18 02/26/18 Range/Units 12:07 17:25 22:32 POC Glucose 204 H 167 H 165 H (68-110) mg/dl Urine Clarity (Clear) Urine Protein (Neg-Trace) mg/dL Urine Bacteria (None) /hpf 02/27/18 02/27/18 02/27/18 Range/Units 03:47 05:25 08:34 POC Glucose 155 H 163 H (68-110) mg/dl Urine Clarity Hazy H (Clear) Urine Protein 100 H (Neg-Trace) mg/dL Urine Bacteria Rare H (None) /hpf Urine 02/27/18 Range/Units 05:25 Urine Color Jessica (Yellw/Straw) Urine Clarity Hazy H (Clear) Urine pH 5.0 (5.0-8.5) Ur Specific [place] 1.019 (1.002-1.035) Urine Protein 100 H (Neg-Trace) mg/dL Urine Glucose (UA) Negative (Negative) mg/dL <Moris Moore - 02/27/18 11:25> Physical Exam Vital signs: Vital Signs 02/26/18 16:00 02/26/18 20:00 02/27/18 04:00 Temperature 99.5 F 101.3 F H 99.0 F Pulse Rate 101 H 103 H 90 Respiratory Rate 18 19 18 Blood Pressure 159/72 H 142/65 H 128/60 Pulse Oximetry 93 L 92 L 96 02/27/18 08:00 02/27/18 08:19 02/27/18 12:00 Temperature 97.8 F 98.9 F Pulse Rate 75 80 Respiratory Rate 17 16 Blood Pressure 145/78 H 142/67 H Pulse Oximetry 96 96 98 02/27/18 12:35 Temperature Pulse Rate Respiratory Rate 17 Blood Pressure Pulse Oximetry Intake & Output 02/26/18 02/27/18 02/27/18 18:59 06:59 18:59 Intake Total 1000 / 1000 1000 / 1000 Balance 1000 / 1000 1000 / 1000 Weight 136.4 kg Intake: IV 1000 / 1000 1000 / 1000 NS Inj 1,000 ML @ 100 mls/hr IV 1000 / 1000 1000 / 1000 .CONT .Q10H [facility] Rx#:[id number] Other: # Incontinent Voids 2 Date of Last Bowel Movement 02/20/18 02/20/18 <Leonidas Cortes - 02/27/18 14:41> Vital Signs 02/26/18 11:56 02/26/18 16:00 02/26/18 20:00 Temperature 98.7 F 99.5 F 101.3 F H Pulse Rate 86 101 H 103 H Respiratory Rate 16 18 19 Blood Pressure 172/74 H 159/72 H 142/65 H Pulse Oximetry 93 L 93 L 92 L 02/27/18 04:00 02/27/18 08:00 02/27/18 08:19 Temperature 99.0 F 97.8 F Pulse Rate 90 75 Respiratory Rate 18 18 Blood Pressure 128/60 145/78 H Pulse Oximetry 96 96 96 Intake & Output 02/26/18 02/27/18 02/27/18 18:59 06:59 18:59 Intake Total 1000 / 1000 1000 / 1000 Balance 1000 / 1000 1000 / 1000 Intake: IV 1000 / 1000 1000 / 1000 NS Inj 1,000 ML @ 100 mls/hr IV 1000 / 1000 1000 / 1000 .CONT .Q10H [facility] Rx#:[id number] Other: # Incontinent Voids 2 Date of Last Bowel Movement 02/20/18 <Moris Moore A - 02/27/18 11:25> Narrative: General: Obese female, alert, and in no acute distress. Appears stated age. HEENT: Atraumatic, non-icteric sclera and no conjunctival injection, moist mucous membranes Neck: Supple, trachea midline Cardiac: Regular rate and rhythm without murmur Pulmonary: Non-labored breathing. Lungs clear to auscultation bilaterally with good air movement Abdomen: Normal bowel sounds, soft and non-tender without rebound or guarding Extremities: No edema, 2+ pedal pulses, capillary refill less than 2 seconds Left upper extremity has splint in place. Clean dry and intact, neurovascularly intact distal to the fracture. Left lower extremity with improving ecchymosis over the prepatellar area. It is not warm to the touch. Significant pain with ROM of the knee. Shoulder is painful to palpation and with ROM. <AlphonsofantaMorisCezar - 02/27/18 11:25> Assessment and Plan - Assessment (1) Closed fracture distal radius and ulna Code(s): S52.509A - Unspecified fracture of the lower end of unspecified radius , initial encounter for closed fracture; S52.609A - Unspecified fracture of lower end of unspecified ulna, initial encounter for closed fracture Status: Acute (2) Hematoma of left lower extremity Code(s): S80.12XA - Contusion of left lower leg, initial encounter Status: Acute (3) Fall Code(s): W19.XXXA - Unspecified fall, initial encounter Status: Acute (4) Diabetes mellitus Code(s): E11.9 - Type 2 diabetes mellitus without complications Status: Acute (5) Hypertension Code(s): I10 - Essential (primary) hypertension Status: Acute (6) GERD (gastroesophageal reflux disease) Code(s): K21.9 - Gastro-esophageal reflux disease without esophagitis Status: Acute (7) Sleep apnea Code(s): G47.30 - Sleep apnea, unspecified Status: Acute (8) Incontinence Code(s): R32 - Unspecified urinary incontinence Status: Acute (9) Diabetic neuropathy Code(s): E11.40 - Type 2 diabetes mellitus with diabetic neuropathy, unspecified Status: Acute <Leonidas Cortes - 02/27/18 14:41> (1) Closed fracture distal radius and ulna Code(s): S52.509A - Unspecified fracture of the lower end of unspecified radius , initial encounter for closed fracture; S52.609A - Unspecified fracture of lower end of unspecified ulna, initial encounter for closed fracture Status: Acute Plan: (2) Hematoma of left lower extremity Code(s): S80.12XA - Contusion of left lower leg, initial encounter Status: Acute Plan: (3) Fall Code(s): W19.XXXA - Unspecified fall, initial encounter Status: Acute Plan: (4) Diabetes mellitus Code(s): E11.9 - Type 2 diabetes mellitus without complications Status: Acute Plan: (5) Hypertension Code(s): I10 - Essential (primary) hypertension Status: Acute Plan: (6) GERD (gastroesophageal reflux disease) Code(s): K21.9 - Gastro-esophageal reflux disease without esophagitis Status: Acute Plan: (7) Sleep apnea Code(s): G47.30 - Sleep apnea, unspecified Status: Acute Plan: (8) Incontinence Code(s): R32 - Unspecified urinary incontinence Status: Acute Plan: (9) Diabetic neuropathy Code(s): E11.40 - Type 2 diabetes mellitus with diabetic neuropathy, unspecified Status: Acute Plan: <Moris Moore - 02/27/18 11:14> - Assessment and Plan 77-year-old woman admitted after a fall where she felt lightheaded and was found to have a distal radius and ulnar fractures. She also has a hematoma of the left knee (s/p total knee replacement). She lives alone and ambulates at home with a walker and is unable to care for herself at home at this time. Nondisplaced fracture of the distal radius and ulna -No surgical intervention recommended by orthopedics -PT recommends PT at rehab -7 days a week, twice daily, PT while hospitalized Fall secondary to dizziness -Unsafe discharge at this time due to her deconditioning, orthostatic vitals did not show orthostatic hypotension Hematoma of left knee: Hx of arthroplasty. No malalignment of hardware on XR -Conservative treatment recommended by orthopedics Left Should Pain: XR L shoulder negative for fracture or malalignment Left ankle pain: -Ankle x-ray showed an abnormal calcaneus of indeterminate age -CT of the ankle showed no acute fracture or malalignment. It did show mild widening of the lateral ankle mortis which may indicate some ligamentous injury or instability Back pain: -She has a significant history of back pain and prior back surgery. Due to her increasing pain during this hospitalization her surgeon, Dr. Petersen was consulted. Diabetes mellitus and peripheral neuropathy -Hold home medication sitagliptin -Blood glucose reasonably well controlled thus far -Low-dose sliding scale insulin aspart Continue home medication venlafaxine for neuropathy GERD -Continue home medication pantoprazole Sleep apnea -CPAP at night History of urinary incontinence -UA was negative, no further inpatient workup at this time Fluids: Adequate p.o. intake Electrolytes: monitor and replete as needed Nutrition: Diabetic diet GI prophylaxis: P.o. pantoprazole (not GI prophylaxis) VTE prophylaxis: Bilateral SCDs (no pharmacologic prophylaxis due to current hematoma) Disposition: She is currently under observation status because she does not meet inpatient criteria. She is not safe to discharge due to her mobility status. <Moris Moore - 02/27/18 11:25> - Attending Attestation See the residents documentation for details. I saw and evaluated the patient regarding the panchal portions of this evaluation and agree with the residents findings and plans as written. Parts of this note were created using [employer] voice recognition software program. While efforts were made to correct any mistakes made by this software, some mistakes, errors, and omissions may remain in the final note that were not caught when the note was originally created. Plan of care was discussed and agreed upon with the patient as specifically documented in the above note. An opportunity to ask questions with explanation was provided. Patient voiced understanding on all information reviewed and discussed. <Leonidas Cortes - 02/27/18 14:41> <Moris Moore - Last Filed: 02/27/18 11:14> (1) Closed fracture distal radius and ulna Qualifiers: Encounter type: initial encounter Laterality: left Qualified Code(s): S52.502A - Unspecified fracture of the lower end of left radius, initial encounter for closed fracture; S52.602A - Unspecified fracture of lower end of left ulna, initial encounter for closed fracture (2) Hematoma of left lower extremity Qualifiers: Encounter type: initial encounter Qualified Code(s): S80.12XA - Contusion of left lower leg, initial encounter (3) Fall Qualifiers: Encounter type: initial encounter Qualified Code(s): W19.XXXA - Unspecified fall, initial encounter <Leonidas Cortes - Last Filed: 02/27/18 14:41> (1) Closed fracture distal radius and ulna Qualifiers: Encounter type: initial encounter Laterality: left Qualified Code(s): S52.502A - Unspecified fracture of the lower end of left radius, initial encounter for closed fracture; S52.602A - Unspecified fracture of lower end of left ulna, initial encounter for closed fracture (2) Hematoma of left lower extremity Qualifiers: Encounter type: initial encounter Qualified Code(s): S80.12XA - Contusion of left lower leg, initial encounter (3) Fall Qualifiers: Encounter type: initial encounter Qualified Code(s): W19.XXXA - Unspecified fall, initial encounter <TeresaMorisCezar - Last Filed: 02/27/18 11:14> (1) Closed fracture distal radius and ulna Qualifiers: Encounter type: initial encounter Laterality: left Qualified Code(s): S52.502A - Unspecified fracture of the lower end of left radius, initial encounter for closed fracture; S52.602A - Unspecified fracture of lower end of left ulna, initial encounter for closed fracture (2) Hematoma of left lower extremity Qualifiers: Encounter type: initial encounter Qualified Code(s): S80.12XA - Contusion of left lower leg, initial encounter (3) Fall Qualifiers: Encounter type: initial encounter Qualified Code(s): W19.XXXA - Unspecified fall, initial encounter <Leonidas Cortes - Last Filed: 02/27/18 14:41> (1) Closed fracture distal radius and ulna Qualifiers: Encounter type: initial encounter Laterality: left Qualified Code(s): S52.502A - Unspecified fracture of the lower end of left radius, initial encounter for closed fracture; S52.602A - Unspecified fracture of lower end of left ulna, initial encounter for closed fracture (2) Hematoma of left lower extremity Qualifiers: Encounter type: initial encounter Qualified Code(s): S80.12XA - Contusion of left lower leg, initial encounter (3) Fall Qualifiers: Encounter type: initial encounter Qualified Code(s): W19.XXXA - Unspecified fall, initial encounter
[2018-02-27 15:39] LABS: Baso # (Auto) 0.1 th/mm3 (0.0-0.2); Baso % (Auto) 0.7 % (0.0-2.0); Eos # (Auto) 0.2 th/mm3 (0.0-0.4); Eos % (Auto) 1.9 % (0.0-4.0); Hemoglobin 10.5 gm/dL (11.6-15.3); Lymph # (Auto) 1.3 th/mm3 (1.0-4.8); Lymph % (Auto) 10.6 % (9.0-44.0); Mean Corpuscular HGB Conc 35.1 % (32.0-36.0); Mean Corpuscular Hemoglobin 33.5 pg (27.0-34.0); Mean Corpuscular Volume 95.5 fL (80.0-100.0); Mean Platelet Volume 7.6 fL (7.0-11.0); Mono # (Auto) 0.9 th/mm3 (0.0-0.9); Mono % (Auto) 7.4 % (0.0-8.0); Neut # (Auto) 9.4 th/mm3 (1.8-7.7); Neut % (Auto) 79.4 % (16.0-70.0); Platelet Count 229 th/mm3 (150-450); Red Blood Count 3.14 mil/mm3 (4.00-5.30); Red Cell Distribution Width 14.1 % (11.6-17.2); White Blood Count 11.9 th/mm3 (4.0-11.0)
[2018-02-27 16:03] LABS: Calcium 7.4 mg/dL (8.5-10.1); Carbon Dioxide 28.3 meq/L (21.0-32.0)
[2018-02-27 16:27] LABS: Albumin 2.4 g/dL (3.4-5.0); Calcium-Albumin Corrected 8.7 mg/dL (8.5-10.1)
[2018-02-28] MEDS: Sod Chloride 0.9% Inj 1,000 ML IV.CONT SCH ×3 (01:46→21:02)
--- NOTE | 2018-02-28 09:41 | XR ---
EXAM DATE: 02/28/2018 9:35 AM EST AGE/SEX: 77 years / Female INDICATIONS: Short of breath. CLINICAL DATA: This is the patient's initial encounter. Patient reports that signs and symptoms have been present for 4 - 6 days and indicates a pain score of 8/10. MEDICAL/SURGICAL HISTORY: None. None. COMPARISON: [facility] – [place], 01/06/[place]. . FINDINGS: Heart is moderately enlarged. Generalized decreased lung aeration is noted. There is patchy airspace disease in the right midlung. Central interstitial vascular prominence is noted. CONCLUSION: Cardiomegaly with Central interstitial vascular prominence characteristic of early congestion. Minimal right midlung airspace disease. Electronically signed by: Patrick Appiah MD 02/28/2018 9:40 AM EST
[2018-02-28] MEDS: Calcium/Vitamin D 250/125 MG Tablet PO SCH (09:56)
[2018-02-28] MEDS: Senna/Docusate Sodium 8.6/50 MG Tablet PO SCH ×2 (09:57→21:01)
[2018-02-28] MEDS: Magnesium Oxide 400 MG Tablet PO SCH (09:57)
[2018-02-28] MEDS: Venlafaxine XR 75 MG Capsule PO SCH (09:57)
[2018-02-28] MEDS: PT:LETROZOLE 2.5 MG PO SCH (09:58)
[2018-02-28] MEDS: Insulin NovoLOG Aspart Correctional Sugar Inj SQ SCH ×4 (09:58→21:19)
--- NOTE | 2018-02-28 11:05 | P.PNFP ---
Subjective Interval history: Patient seen and examined this morning. Patient reports some abdominal pain and shortness of breath. She denies nausea, vomiting, fever, chills, cough, productive cough, chest pain, chest tightness, left arm or jaw pain, lightheadedness, dizziness, changes in vision. She reports a resolution of her GERD symptoms. The abdominal pain is dull, constant, present for the last day. She states she continues to work with physical therapy. <Moris Moore - 02/28/18 11:04> Results - Labs Result diagrams: 02/27/18 15:06 02/27/18 15:06 <Leonidas Cortes - 02/28/18 14:07> Abnormal lab results 02/27/18 02/27/18 02/27/18 Range/Units 15:06 15:06 17:31 WBC 11.9 H (4.0-11.0) th/mm3 RBC 3.14 L (4.00-5.30) mil/mm3 Hgb 10.5 L (11.6-15.3) gm/dL Hct 30.0 L (35.0-46.0) % Neut % (Auto) 79.4 H (16.0-70.0) % Neut # (Auto) 9.4 H (1.8-7.7) th/mm3 Estimated GFR 75 L (>89) mL/min POC Glucose 206 H (68-110) mg/dl Random Glucose 190 H (74-106) mg/dL Calcium 7.4 L* (8.5-10.1) mg/dL Albumin 2.4 L (3.4-5.0) g/dL 02/27/18 02/28/18 02/28/18 Range/Units 21:30 04:26 09:37 WBC (4.0-11.0) th/mm3 RBC (4.00-5.30) mil/mm3 Hgb (11.6-15.3) gm/dL Hct (35.0-46.0) % Neut % (Auto) (16.0-70.0) % Neut # (Auto) (1.8-7.7) th/mm3 Estimated GFR (>89) mL/min POC Glucose 176 H 166 H 184 H (68-110) mg/dl Random Glucose (74-106) mg/dL Calcium (8.5-10.1) mg/dL Albumin (3.4-5.0) g/dL 02/28/18 Range/Units 13:21 WBC (4.0-11.0) th/mm3 RBC (4.00-5.30) mil/mm3 Hgb (11.6-15.3) gm/dL Hct (35.0-46.0) % Neut % (Auto) (16.0-70.0) % Neut # (Auto) (1.8-7.7) th/mm3 Estimated GFR (>89) mL/min POC Glucose 224 H (68-110) mg/dl Random Glucose (74-106) mg/dL Calcium (8.5-10.1) mg/dL Albumin (3.4-5.0) g/dL Short CBC 02/27/18 Range/Units 15:06 WBC 11.9 H (4.0-11.0) th/mm3 Hgb 10.5 L (11.6-15.3) gm/dL Hct 30.0 L (35.0-46.0) % Plt Count 229 (150-450) th/mm3 BMP 02/27/18 15:06 Sodium 138 Potassium 4.0 Chloride 105 Carbon Dioxide 28.3 BUN 14 Creatinine 0.75 Calcium 7.4 L* Liver Function 02/27/18 Range/Units 15:06 Albumin 2.4 L (3.4-5.0) g/dL <Leonidas Cortes - 02/28/18 14:07> Abnormal lab results 02/27/18 02/27/18 02/27/18 Range/Units 12:38 15:06 15:06 WBC 11.9 H (4.0-11.0) th/mm3 RBC 3.14 L (4.00-5.30) mil/mm3 Hgb 10.5 L (11.6-15.3) gm/dL Hct 30.0 L (35.0-46.0) % Neut % (Auto) 79.4 H (16.0-70.0) % Neut # (Auto) 9.4 H (1.8-7.7) th/mm3 Estimated GFR 75 L (>89) mL/min POC Glucose 186 H (68-110) mg/dl Random Glucose 190 H (74-106) mg/dL Calcium 7.4 L* (8.5-10.1) mg/dL Albumin 2.4 L (3.4-5.0) g/dL 02/27/18 02/27/18 02/28/18 Range/Units 17:31 21:30 04:26 WBC (4.0-11.0) th/mm3 RBC (4.00-5.30) mil/mm3 Hgb (11.6-15.3) gm/dL Hct (35.0-46.0) % Neut % (Auto) (16.0-70.0) % Neut # (Auto) (1.8-7.7) th/mm3 Estimated GFR (>89) mL/min POC Glucose 206 H 176 H 166 H (68-110) mg/dl Random Glucose (74-106) mg/dL Calcium (8.5-10.1) mg/dL Albumin (3.4-5.0) g/dL 02/28/18 Range/Units 09:37 WBC (4.0-11.0) th/mm3 RBC (4.00-5.30) mil/mm3 Hgb (11.6-15.3) gm/dL Hct (35.0-46.0) % Neut % (Auto) (16.0-70.0) % Neut # (Auto) (1.8-7.7) th/mm3 Estimated GFR (>89) mL/min POC Glucose 184 H (68-110) mg/dl Random Glucose (74-106) mg/dL Calcium (8.5-10.1) mg/dL Albumin (3.4-5.0) g/dL Short CBC 02/27/18 Range/Units 15:06 WBC 11.9 H (4.0-11.0) th/mm3 Hgb 10.5 L (11.6-15.3) gm/dL Hct 30.0 L (35.0-46.0) % Plt Count 229 (150-450) th/mm3 BMP 02/27/18 15:06 Sodium 138 Potassium 4.0 Chloride 105 Carbon Dioxide 28.3 BUN 14 Creatinine 0.75 Calcium 7.4 L* Liver Function 02/27/18 Range/Units 15:06 Albumin 2.4 L (3.4-5.0) g/dL <[email or web address] - 02/28/18 11:04> - Imaging Impressions Chest X-Ray 02/28/18 00:00 CONCLUSION: Cardiomegaly with Central interstitial vascular prominence characteristic of early congestion. Minimal right midlung airspace disease. <Leonidas Cortes - 02/28/18 14:07> Impressions Chest X-Ray 02/28/18 00:00 CONCLUSION: Cardiomegaly with Central interstitial vascular prominence characteristic of early congestion. Minimal right midlung airspace disease. <Moris Moore - 02/28/18 11:04> Physical Exam Vital signs: Vital Signs 02/27/18 16:00 02/27/18 20:00 02/27/18 22:56 Temperature 99.7 F H 99.2 F Pulse Rate 90 90 Respiratory Rate 18 16 Blood Pressure 174/77 H 137/78 Pulse Oximetry 94 L 95 95 02/28/18 00:48 02/28/18 04:00 02/28/18 08:00 Temperature 98.8 F 100.1 F H 99.0 F Pulse Rate 102 H 101 H Respiratory Rate 16 12 18 Blood Pressure 173/90 H 131/59 L 148/64 H Pulse Oximetry 95 96 95 02/28/18 09:35 02/28/18 12:00 Temperature 97.8 F Pulse Rate 84 Respiratory Rate 18 Blood Pressure 138/65 Pulse Oximetry 96 94 L Intake & Output 02/27/18 02/28/18 02/28/18 18:59 06:59 18:59 Intake Total 500 / 500 500 / 500 1000 / 1000 Output Total 700 / 700 Balance 500 / 500 -200 / -200 1000 / 1000 Intake: IV 500 / 500 500 / 500 1000 / 1000 NS Inj 1,000 ML @ 100 mls/hr IV 500 / 500 500 / 500 1000 / 1000 .CONT .Q10H SAHIL Rx#:[id number] Output: Urine 700 / 700 Other: # Voids 3 # Incontinent Voids 2 2 Date of Last Bowel Movement 02/20/18 02/20/18 <Leonidas Cortes - 02/28/18 14:07> Vital Signs 02/27/18 12:00 02/27/18 12:35 02/27/18 16:00 Temperature 98.9 F 99.7 F H Pulse Rate 80 90 Respiratory Rate 16 17 18 Blood Pressure 142/67 H 174/77 H Pulse Oximetry 98 94 L 02/27/18 20:00 02/27/18 22:56 02/28/18 00:48 Temperature 99.2 F 98.8 F Pulse Rate 90 102 H Respiratory Rate 16 16 Blood Pressure 137/78 173/90 H Pulse Oximetry 95 95 95 02/28/18 04:00 02/28/18 08:00 02/28/18 09:35 Temperature 100.1 F H 99.0 F Pulse Rate 101 H Respiratory Rate 12 18 Blood Pressure 131/59 L 148/64 H Pulse Oximetry 96 95 96 Intake & Output 02/27/18 02/28/18 02/28/18 18:59 06:59 18:59 Intake Total 500 / 500 500 / 500 Output Total 700 / 700 Balance 500 / 500 -200 / -200 Intake: IV 500 / 500 500 / 500 NS Inj 1,000 ML @ 100 mls/hr IV 500 / 500 500 / 500 .CONT .Q10H SAHIL Rx#:[id number] Output: Urine 700 / 700 Other: # Voids 3 # Incontinent Voids 2 2 Date of Last Bowel Movement 02/20/18 02/20/18 <Moris Moore - 02/28/18 11:04> Narrative: General: Obese female, alert, and in no acute distress. Appears stated age. HEENT: Atraumatic, non-icteric sclera and no conjunctival injection, moist mucous membranes Neck: Supple, trachea midline Cardiac: Regular rate and rhythm without murmur Pulmonary: Non-labored breathing. Lungs clear to auscultation bilaterally with good air movement Abdomen: Normal bowel sounds, soft and non-tender without rebound or guarding Extremities: No edema, 2+ pedal pulses, capillary refill less than 2 seconds Left upper extremity has splint in place. Clean dry and intact, neurovascularly intact distal to the fracture. Left lower extremity with improving ecchymosis over the prepatellar area. It is not warm to the touch. Significant pain with ROM of the knee. Shoulder is painful to palpation and with ROM. <Moris Moore - 02/28/18 11:04> Assessment and Plan - Assessment (1) Closed fracture distal radius and ulna Code(s): S52.509A - Unspecified fracture of the lower end of unspecified radius , initial encounter for closed fracture; S52.609A - Unspecified fracture of lower end of unspecified ulna, initial encounter for closed fracture Status: Acute (2) Hematoma of left lower extremity Code(s): S80.12XA - Contusion of left lower leg, initial encounter Status: Acute (3) Fall Code(s): W19.XXXA - Unspecified fall, initial encounter Status: Acute (4) Diabetes mellitus Code(s): E11.9 - Type 2 diabetes mellitus without complications Status: Acute (5) Hypertension Code(s): I10 - Essential (primary) hypertension Status: Acute (6) GERD (gastroesophageal reflux disease) Code(s): K21.9 - Gastro-esophageal reflux disease without esophagitis Status: Acute (7) Sleep apnea Code(s): G47.30 - Sleep apnea, unspecified Status: Acute (8) Incontinence Code(s): R32 - Unspecified urinary incontinence Status: Acute (9) Diabetic neuropathy Code(s): E11.40 - Type 2 diabetes mellitus with diabetic neuropathy, unspecified Status: Acute (10) SIRS (systemic inflammatory response syndrome) Code(s): R65.10 - Systemic inflammatory response syndrome (SIRS) of non- infectious origin without acute organ dysfunction Status: Acute (11) Hypocalcemia Code(s): E83.51 - Hypocalcemia Status: Acute <Leonidas Cortes - 02/28/18 14:07> (1) Closed fracture distal radius and ulna Code(s): S52.509A - Unspecified fracture of the lower end of unspecified radius , initial encounter for closed fracture; S52.609A - Unspecified fracture of lower end of unspecified ulna, initial encounter for closed fracture Status: Acute Plan: (2) Hematoma of left lower extremity Code(s): S80.12XA - Contusion of left lower leg, initial encounter Status: Acute Plan: (3) Fall Code(s): W19.XXXA - Unspecified fall, initial encounter Status: Acute Plan: (4) Diabetes mellitus Code(s): E11.9 - Type 2 diabetes mellitus without complications Status: Acute Plan: (5) Hypertension Code(s): I10 - Essential (primary) hypertension Status: Acute Plan: (6) GERD (gastroesophageal reflux disease) Code(s): K21.9 - Gastro-esophageal reflux disease without esophagitis Status: Acute Plan: (7) Sleep apnea Code(s): G47.30 - Sleep apnea, unspecified Status: Acute Plan: (8) Incontinence Code(s): R32 - Unspecified urinary incontinence Status: Acute Plan: (9) Diabetic neuropathy Code(s): E11.40 - Type 2 diabetes mellitus with diabetic neuropathy, unspecified Status: Acute Plan: (10) SIRS (systemic inflammatory response syndrome) Code(s): R65.10 - Systemic inflammatory response syndrome (SIRS) of non- infectious origin without acute organ dysfunction Status: Acute (11) Hypocalcemia Code(s): E83.51 - Hypocalcemia Status: Acute <Moris Moore - 02/28/18 10:52> - Assessment and Plan 77-year-old woman admitted after a fall where she felt lightheaded and was found to have a distal radius and ulnar fractures. She also has a hematoma of the left knee (s/p total knee replacement). She lives alone and ambulates at home with a walker and is unable to care for herself at home at this time. Sirs Criteria Patient met Sirs criteria with fever of 101.3, 100.1 02/28. Tachycardic. Elevated white count on previous CBC. -Follow-up blood culture growth -Follow-up chest CTA -Follow-up UA Nondisplaced fracture of the distal radius and ulna -No surgical intervention recommended by orthopedics -PT recommends PT at rehab -7 days a week, twice daily, PT while hospitalized Fall secondary to dizziness -Unsafe discharge at this time due to her deconditioning, orthostatic vitals did not show orthostatic hypotension Hematoma of left knee: Hx of arthroplasty. No malalignment of hardware on XR -Conservative treatment recommended by orthopedics Left Should Pain: XR L shoulder negative for fracture or malalignment Left ankle pain: -Ankle x-ray showed an abnormal calcaneus of indeterminate age -CT of the ankle showed no acute fracture or malalignment. It did show mild widening of the lateral ankle mortis which may indicate some ligamentous injury or instability Back pain: -She has a significant history of back pain and prior back surgery. Due to her increasing pain during this hospitalization her surgeon, Dr. Petersen was consulted. Diabetes mellitus and peripheral neuropathy -Hold home medication sitagliptin -Blood glucose reasonably well controlled thus far -Low-dose sliding scale insulin aspart Continue home medication venlafaxine for neuropathy GERD -Continue home medication pantoprazole Sleep apnea -CPAP at night History of urinary incontinence -UA was negative, no further inpatient workup at this time Hypocalcemia -Calcium of 7.4 -Monitor and replete as needed Fluids: Adequate p.o. intake Electrolytes: monitor and replete as needed Nutrition: Diabetic diet GI prophylaxis: P.o. pantoprazole (not GI prophylaxis) VTE prophylaxis: Bilateral SCDs (no pharmacologic prophylaxis due to current hematoma) Disposition: She is currently under observation status because she does not meet inpatient criteria. She is not safe to discharge due to her mobility status. <Moris Moore - 02/28/18 11:04> - Attending Attestation See the residents documentation for details. I saw and evaluated the patient regarding the panchal portions of this evaluation and agree with the residents findings and plans as written. Parts of this note were created using [employer] voice recognition software program. While efforts were made to correct any mistakes made by this software, some mistakes, errors, and omissions may remain in the final note that were not caught when the note was originally created. Plan of care was discussed and agreed upon with the patient as specifically documented in the above note. An opportunity to ask questions with explanation was provided. Patient voiced understanding on all information reviewed and discussed. <Leonidas Cortes - 02/28/18 14:07> <Moris Moore - Last Filed: 02/28/18 10:52> (1) Closed fracture distal radius and ulna Qualifiers: Encounter type: initial encounter Laterality: left Qualified Code(s): S52.502A - Unspecified fracture of the lower end of left radius, initial encounter for closed fracture; S52.602A - Unspecified fracture of lower end of left ulna, initial encounter for closed fracture (2) Hematoma of left lower extremity Qualifiers: Encounter type: initial encounter Qualified Code(s): S80.12XA - Contusion of left lower leg, initial encounter (3) Fall Qualifiers: Encounter type: initial encounter Qualified Code(s): W19.XXXA - Unspecified fall, initial encounter <Cortes,Leonidas - Last Filed: 02/28/18 14:07> (1) Closed fracture distal radius and ulna Qualifiers: Encounter type: initial encounter Laterality: left Qualified Code(s): S52.502A - Unspecified fracture of the lower end of left radius, initial encounter for closed fracture; S52.602A - Unspecified fracture of lower end of left ulna, initial encounter for closed fracture (2) Hematoma of left lower extremity Qualifiers: Encounter type: initial encounter Qualified Code(s): S80.12XA - Contusion of left lower leg, initial encounter (3) Fall Qualifiers: Encounter type: initial encounter Qualified Code(s): W19.XXXA - Unspecified fall, initial encounter <Moris Moore - Last Filed: 02/28/18 10:52> (1) Closed fracture distal radius and ulna Qualifiers: Encounter type: initial encounter Laterality: left Qualified Code(s): S52.502A - Unspecified fracture of the lower end of left radius, initial encounter for closed fracture; S52.602A - Unspecified fracture of lower end of left ulna, initial encounter for closed fracture (2) Hematoma of left lower extremity Qualifiers: Encounter type: initial encounter Qualified Code(s): S80.12XA - Contusion of left lower leg, initial encounter (3) Fall Qualifiers: Encounter type: initial encounter Qualified Code(s): W19.XXXA - Unspecified fall, initial encounter <Leonidas Cortes - Last Filed: 02/28/18 14:07> (1) Closed fracture distal radius and ulna Qualifiers: Encounter type: initial encounter Laterality: left Qualified Code(s): S52.502A - Unspecified fracture of the lower end of left radius, initial encounter for closed fracture; S52.602A - Unspecified fracture of lower end of left ulna, initial encounter for closed fracture (2) Hematoma of left lower extremity Qualifiers: Encounter type: initial encounter Qualified Code(s): S80.12XA - Contusion of left lower leg, initial encounter (3) Fall Qualifiers: Encounter type: initial encounter Qualified Code(s): W19.XXXA - Unspecified fall, initial encounter
--- NOTE | 2018-02-28 11:53 | P.PNOP ---
Subjective Interval history: Patient more comfortable today. Main complaint is back pain from lying in bed. Physical Exam Vital signs: Vital Signs 02/27/18 12:00 02/27/18 12:35 02/27/18 16:00 Temperature 98.9 F 99.7 F H Pulse Rate 80 90 Respiratory Rate 16 17 18 Blood Pressure 142/67 H 174/77 H Pulse Oximetry 98 94 L 02/27/18 20:00 02/27/18 22:56 02/28/18 00:48 Temperature 99.2 F 98.8 F Pulse Rate 90 102 H Respiratory Rate 16 16 Blood Pressure 137/78 173/90 H Pulse Oximetry 95 95 95 02/28/18 04:00 02/28/18 08:00 02/28/18 09:35 Temperature 100.1 F H 99.0 F Pulse Rate 101 H Respiratory Rate 12 18 Blood Pressure 131/59 L 148/64 H Pulse Oximetry 96 95 96 Intake & Output 02/27/18 02/28/18 02/28/18 18:59 06:59 18:59 Intake Total 500 / 500 500 / 500 Output Total 700 / 700 Balance 500 / 500 -200 / -200 Intake: IV 500 / 500 500 / 500 NS Inj 1,000 ML @ 100 mls/hr IV 500 / 500 500 / 500 .CONT .Q10H [facility]IL Rx#:[id number] Output: Urine 700 / 700 Other: # Voids 3 # Incontinent Voids 2 2 Date of Last Bowel Movement 02/20/18 02/20/18 - Constitutional no acute distress Results - Labs CBC & Chem 7: 02/27/18 15:06 02/27/18 15:06 Laboratory Results - last 24 hr 02/27/18 02/27/18 02/27/18 12:38 15:06 15:06 WBC 11.9 H RBC 3.14 L Hgb 10.5 L Hct 30.0 L MCV 95.5 MCH 33.5 MCHC 35.1 RDW 14.1 Plt Count 229 MPV 7.6 Neut % (Auto) 79.4 H Lymph % (Auto) 10.6 [place] % (Auto) 7.4 Eos % (Auto) 1.9 Baso % (Auto) 0.7 Neut # (Auto) 9.4 H Lymph # (Auto) 1.3 [place] # (Auto) 0.9 Eos # (Auto) 0.2 Baso # (Auto) 0.1 WBC Differential . Differential Comment Auto diff final Sodium 138 Potassium 4.0 Chloride 105 Carbon Dioxide 28.3 Anion Gap 5 BUN 14 Creatinine 0.75 Estimated GFR 75 L POC Glucose 186 H Random Glucose 190 H Calcium 7.4 L* Calcium Adj for Albumin 8.7 Albumin 2.4 L 02/27/18 02/27/18 02/28/18 17:31 21:30 04:26 WBC RBC Hgb Hct MCV MCH MCHC RDW Plt Count MPV Neut % (Auto) Lymph % (Auto) [place] % (Auto) Eos % (Auto) Baso % (Auto) Neut # (Auto) Lymph # (Auto) [place] # (Auto) Eos # (Auto) Baso # (Auto) WBC Differential Differential Comment Sodium Potassium Chloride Carbon Dioxide Anion Gap BUN Creatinine Estimated GFR POC Glucose 206 H 176 H 166 H Random Glucose Calcium Calcium Adj for Albumin Albumin 02/28/18 09:37 WBC RBC Hgb Hct MCV MCH MCHC RDW Plt Count MPV Neut % (Auto) Lymph % (Auto) [place] % (Auto) Eos % (Auto) Baso % (Auto) Neut # (Auto) Lymph # (Auto) [place] # (Auto) Eos # (Auto) Baso # (Auto) WBC Differential Differential Comment Sodium Potassium Chloride Carbon Dioxide Anion Gap BUN Creatinine Estimated GFR POC Glucose 184 H Random Glucose Calcium Calcium Adj for Albumin Albumin Microbiology 02/27/18 15:01 Blood - Peripheral Aerobic Blood Culture - Preliminary No growth in 1 day 02/27/18 15:01 Blood - Peripheral Anaerobic Blood Culture - Preliminary No growth in 1 day 02/27/18 15:06 Blood - Peripheral Aerobic Blood Culture - Preliminary No growth in 1 day 02/27/18 15:06 Blood - Peripheral Anaerobic Blood Culture - Preliminary No growth in 1 day - Imaging Impressions Chest X-Ray 02/28/18 00:00 CONCLUSION: Cardiomegaly with Central interstitial vascular prominence characteristic of early congestion. Minimal right midlung airspace disease. Assessment and Plan - Assessment and Plan 77-year-old female with closed left minimally displaced distal radius and ulnar styloid fractures along with left knee hematoma Radiographs reviewed by myself and with the patient. She does have extensive degenerative changes around the left wrist due to previous fracture. Currently , she has a minimally displaced left distal radius and ulnar styloid fracture. Options of management were reviewed with the patient including continued nonoperative care and splint versus operative intervention. At this time I do think it is reasonable to at least attempt an initial course of nonoperative management. I have advised the patient remain nonweightbearing to left upper extremity in the splint. I encouraged the patient to work on finger range of motion. I discussed with the patient that her left total knee prosthesis appears in good position on radiographs and there is no clear evidence of fracture. She appears to have a superficial hematoma and I would recommend conservative treatment of this with ice, range of motion and weightbearing as tolerated. Patient is a known patient of Dr. Julien and states she follows with him on a regular basis. I explained to the patient that I am certainly happy to follow her after discharge or she can follow-up with Dr. Julien. Should she elect to follow with myself, I would like to see her in my office in approximately 10-14 days. - Attending Attestation Attending Attestation: Cast is intact on her left arm. She needs some moleskin around the thumb to prevent irritation of her skin. She is neurovascularly intact to upper and lower extremities. There is less bruising about the left knee. Plan is for the patient continue with therapy and hopefully be transferred to inpatient rehab.
[2018-02-28] MEDS: levoFLOXacin 500 MG Tablet PO SCH (13:28)
--- NOTE | 2018-02-28 16:10 | CT ---
EXAM DATE: 02/28/2018 4:02 PM EST AGE/SEX: 77 years / Female INDICATIONS: Shortness of breath. Cardiomegaly. Evaluate for possible Embolism. CLINICAL DATA: This is the patient's subsequent encounter. Patient reports that signs and symptoms h ave been present for 1 week and indicates a pain score of 0/10. MEDICAL/SURGICAL HISTORY: Carcinoma, breast. Hypertension. Gastroesophageal reflux disease. Whitten ett's Esophagus. Diverticulitis. Diabetes. Appendectomy. Cholecystectomy. RADIATION DOSE: 10.60 CTDI (mGy) COMPARISON: [facility] – [place], CHEST 1V SINGLE AP, 02/28/2018. . TECHNIQUE: Volumetric scanning was performed using a multi-row detector CT scanner during bolus infu dl of 75 ml Omnipaque 350 (iohexol) nonionic water-soluble contrast as a single exam dose. The troy a was post processed with a variety of visualization algorithms including full volume maximum intensi ty projection and sliding thin slab reformation. Using automated exposure control and adjustment of t he mA and/or kV according to patient size, radiation dose was kept as low as reasonably achievable to obtain optimal diagnostic quality images. DICOM format image data is available electronically for r eview and comparison. FINDINGS: Pulmonary Arteries: No filling defects are seen in the pulmonary arteries out to the subsegmental ve ssels. The left and right pulmonary arteries are normal in diameter. Lung: There is atelectasis or scarring in the dependent portions of the lung bases. Effusion: Minimal pleural fluid is present right greater than left. Mediastinum: No evidence of mediastinal or hilar adenopathy. The heart size is mildly enlarged. Ther e is no pericardial effusion. Other: The axilla is unremarkable. A small hiatal hernia is noted. There is moderate hepatic steatos is. The liver appears prominent. CONCLUSION: 1. No evidence of pulmonary edema. 2. Minimal pleural fluid right greater than left with atelectasis or scarring in the dependent porti ons of the lung bases. 3. Cardiomegaly. 4. Small hiatal hernia. Electronically signed by: Moirs Cabral MD Board Certified Radiologist 02/28/2018 4:09 PM EST
[2018-02-28 18:05] LABS: Bacteria,Urine Occasional /hpf; Bilirubin,Urine Negative (Negative); Clarity,Urine Clear (Clear); Color,Urine Amber (Yellw/Straw); Glucose,Urine (UA) Negative (Negative); Hyaline Casts,Urine 1 /lpf (0-3); Leukocyte Esterase,Urine Negative (Negative); Nitrite,Urine Negative (Negative); Specific Gravity,Urine 1.017 (1.002-1.035); Squamous Epithelial Cell,Urine <1 /hpf (0-5)
[2018-02-28 18:06] LABS: Urobilinogen,Urine 0.2 mg/dL (Less than 2)
--- NOTE | 2018-02-28 22:25 | P.PNNS ---
Subjective Interval history: 02/28. Ms Jackson is more comfortable today. Her main complaint is low back pain from lying in bed and arm pain. Physical Exam Vital signs: Vital Signs 02/27/18 22:56 02/28/18 00:48 02/28/18 04:00 Temperature 98.8 F 100.1 F H Pulse Rate 102 H 101 H Respiratory Rate 16 12 Blood Pressure 173/90 H 131/59 L Pulse Oximetry 95 95 96 02/28/18 08:00 02/28/18 09:35 02/28/18 12:00 Temperature 99.0 F 97.8 F Pulse Rate 84 Respiratory Rate 18 18 Blood Pressure 148/64 H 138/65 Pulse Oximetry 95 96 94 L 02/28/18 20:00 Temperature 99.2 F Pulse Rate 75 Respiratory Rate 20 Blood Pressure 137/70 Pulse Oximetry 98 Intake & Output 02/28/18 02/28/18 03/01/18 06:59 18:59 06:59 Intake Total 500 / 500 1000 / 1000 Output Total 700 / 700 600 / 600 Balance -200 / -200 1000 / 1000 -600 / -600 Intake: IV 500 / 500 1000 / 1000 NS Inj 1,000 ML @ 100 mls/hr IV 500 / 500 1000 / 1000 .CONT .Q10H [facility] Rx#:[id number] Output: Urine 700 / 700 600 / 600 Other: # Voids 3 # Incontinent Voids 2 Date of Last Bowel Movement 02/20/18 Narrative: General: Obese female, alert, and in no acute distress. Appears stated age. HEENT: Atraumatic, non-icteric sclera and no conjunctival injection, moist mucous membranes Neck: Supple, trachea midline Cardiac: Regular rate and rhythm without murmur Pulmonary: Non-labored breathing. Lungs clear to auscultation bilaterally with good air movement Abdomen: Normal bowel sounds, soft and non-tender without rebound or guarding Extremities: No edema, 2+ pedal pulses, capillary refill less than 2 seconds Left upper extremity has splint in place. Clean dry and intact, neurovascularly intact distal to the fracture. Left lower extremity with improving ecchymosis over the prepatellar area. It is not warm to the touch. Pain improved with ROM of the knee. Assessment and Plan - Plan 77-year-old female with closed left minimally displaced distal radius and ulnar styloid fractures along with left knee hematoma Hip X-Ray 02/20/18 00:00 CONCLUSION: 1. Intact pelvis and left hip. 2. Healed left intertrochanteric fracture post nail and akosua fixation. Cervical Spine CT 02/20/18 15:28 CONCLUSION: 1. Stable osteopenia and degenerative changes are noted throughout the cervical spine. 2. Mild broad-based bulging with disc osteophyte complex at C5-6. 3. No significant changes are seen compared to the prior exam. Face CT 02/20/18 15:28 CONCLUSION: 1. No acute bony fracture. 2. Chronic sinus disease in the right sphenoid and ethmoid sinuses. 3. 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 Head CT 02/20/18 15:28 CONCLUSION: 1. No focal or acute intracranial hemorrhage. 2. Stable bilateral cortical atrophy and chronic white matter changes. . Knee X-Ray 02/20/18 15:28 CONCLUSION: 1. Status post left knee arthroplasty. No radiographic evidence for hardware failure. 2. No acute fracture. Shoulder X-Ray 02/20/18 15:28 CONCLUSION: Degenerative changes suggesting chronic rotator cuff tear. Fracture not appreciated. Wrist X-Ray 02/20/18 15:28 CONCLUSION: Nondisplaced fracture of the distal radius and ulna. Diffuse osteopenia Lower Extremity Ultrasound 02/21/18 00:00 CONCLUSION: There are 3 adjacent and potentially connecting heterogeneous fluid collections in the prepatellar region of the left knee. The appearance and recent trauma, these could represent Thomson-Brittani lesions or combination of a simple edema and hematomas. Ankle X-Ray 02/25/18 00:00 CONCLUSION: 1. Abnormal appearing calcaneus of indeterminate age. There are no prior studies for comparison. If clinically indicated this could be further evaluated with CT. 2. Degenerative change involving the tibiotalar joint. The distal tibia and fibula are intact. Neuro: neuro checks in a serial fashion. Pulmonary: aggressive pulmonary toilette, nasotracheal suction, and breathing treatments with nebulizers. minimally displaced left distal radius and ulnar styloid fracture. She should remain nonweightbearing to left upper extremity in the splint. Her left total knee prosthesis appears in good position on radiographs and there is no clear evidence of fracture. She appears to have a superficial hematoma. ortho recommended conservative treatment of this with ice, range of motion and weightbearing as tolerated. Daily PT and OT Renal: Continue to monitor closely urine output, BUN and creatinine Endocrine: Continue to Monitor serial Acu checks and SSI as needed in detail ID continue to monitor for signs of infection Continue Protonix for stress ulcer prophylaxis Continue Hung hose and SCD's for DVT prophylaxis Further recommendations will be provided depending on the patient's clinical evaluation and follow up studies.
[2018-02-28] MEDS: Acetaminophen 325 MG Tablet PO PRN (22:53)
[2018-03-01] MEDS: Sod Chloride 0.9% Inj 1,000 ML IV.CONT SCH ×3 (03:37→16:11)
[2018-03-01 04:51] LABS: Baso # (Auto) 0.1 th/mm3 (0.0-0.2); Baso % (Auto) 0.6 % (0.0-2.0); Eos # (Auto) 0.2 th/mm3 (0.0-0.4); Eos % (Auto) 1.9 % (0.0-4.0); Hematocrit 30.5 % (35.0-46.0); Hemoglobin 9.9 gm/dL (11.6-15.3); Lymph # (Auto) 1.8 th/mm3 (1.0-4.8); Lymph % (Auto) 14.4 % (9.0-44.0); Mean Corpuscular HGB Conc 32.6 % (32.0-36.0); Mean Corpuscular Hemoglobin 30.9 pg (27.0-34.0); Mean Corpuscular Volume 94.7 fL (80.0-100.0); Mean Platelet Volume 7.5 fL (7.0-11.0); Mono % (Auto) 8.3 % (0.0-8.0); Neut # (Auto) 9.2 th/mm3 (1.8-7.7); Neut % (Auto) 74.8 % (16.0-70.0); Platelet Count 283 th/mm3 (150-450); Red Blood Count 3.22 mil/mm3 (4.00-5.30); Red Cell Distribution Width 13.8 % (11.6-17.2); White Blood Count 12.2 th/mm3 (4.0-11.0)
[2018-03-01 05:21] LABS: Anion Gap 9 meq/L (5-15); Blood Urea Nitrogen 9 mg/dL (7-18); Calcium 7.6 mg/dL (8.5-10.1); Carbon Dioxide 28.4 meq/L (21.0-32.0); Chloride 102 meq/L (98-107); Glomerular Filtration Rate Greater Than 89 mL/min (>89); Glucose,Random 159 mg/dL (74-106); Sodium 139 meq/L (136-145)
[2018-03-01] MEDS ORDERED: Potassium Chloride 25 MEQ Effervescent Tablet PO ONE (07:24)
[2018-03-01] MEDS: Senna/Docusate Sodium 8.6/50 MG Tablet PO SCH ×2 (09:33→21:02)
[2018-03-01] MEDS: Calcium/Vitamin D 250/125 MG Tablet PO SCH (09:34)
[2018-03-01] MEDS: Venlafaxine XR 75 MG Capsule PO SCH (09:35)
[2018-03-01] MEDS: Insulin NovoLOG Aspart Correctional Sugar Inj SQ SCH ×4 (09:36→22:36)
[2018-03-01] MEDS: PT:LETROZOLE 2.5 MG PO SCH (09:37)
--- NOTE | 2018-03-01 11:20 | P.PNFP ---
Subjective Interval history: Patient seen and examined today. No acute events overnight. Patient believes she is regaining strength in her left leg. Reports that she can bend her knee almost at baseline. Reports some mild constipation, however nursing reports that she had a bowel movement yesterday. Denies nausea, vomiting, fever, chills, abdominal pain, chest pain, shortness of breath, lightheadedness, dizziness. No other acute complaints. <Moris Moore - 03/01/18 11:20> Results - Labs Result diagrams: 03/01/18 04:00 03/01/18 04:00 <Leonidas Cortes - 03/01/18 13:12> Abnormal lab results 02/28/18 02/28/18 02/28/18 Range/Units 13:21 15:35 17:09 WBC (4.0-11.0) th/mm3 RBC (4.00-5.30) mil/mm3 Hgb (11.6-15.3) gm/dL Hct (35.0-46.0) % Neut % (Auto) (16.0-70.0) % [place] % (Auto) (0.0-8.0) % Neut # (Auto) (1.8-7.7) th/mm3 [place] # (Auto) (0.0-0.9) th/mm3 Potassium (3.5-5.1) meq/L POC Glucose 224 H 178 H (68-110) mg/dl Random Glucose (74-106) mg/dL Calcium (8.5-10.1) mg/dL Urine Protein 30 H (Neg-Trace) mg/dL Urine Ketones Trace H (Negative) mg/dL Urine Occult Blood Small H (Negative) Urine Bacteria Occasional H (None) /hpf 02/28/18 03/01/18 03/01/18 Range/Units 21:11 04:00 04:00 WBC 12.2 H (4.0-11.0) th/mm3 RBC 3.22 L (4.00-5.30) mil/mm3 Hgb 9.9 L (11.6-15.3) gm/dL Hct 30.5 L (35.0-46.0) % Neut % (Auto) 74.8 H (16.0-70.0) % [place] % (Auto) 8.3 H (0.0-8.0) % Neut # (Auto) 9.2 H (1.8-7.7) th/mm3 [place] # (Auto) 1.0 H (0.0-0.9) th/mm3 Potassium 3.0 L D (3.5-5.1) meq/L POC Glucose 128 H (68-110) mg/dl Random Glucose 159 H (74-106) mg/dL Calcium 7.6 L (8.5-10.1) mg/dL Urine Protein (Neg-Trace) mg/dL Urine Ketones (Negative) mg/dL Urine Occult Blood (Negative) Urine Bacteria (None) /hpf 03/01/18 03/01/18 Range/Units 08:58 12:07 WBC (4.0-11.0) th/mm3 RBC (4.00-5.30) mil/mm3 Hgb (11.6-15.3) gm/dL Hct (35.0-46.0) % Neut % (Auto) (16.0-70.0) % [place] % (Auto) (0.0-8.0) % Neut # (Auto) (1.8-7.7) th/mm3 [place] # (Auto) (0.0-0.9) th/mm3 Potassium (3.5-5.1) meq/L POC Glucose 182 H 173 H (68-110) mg/dl Random Glucose (74-106) mg/dL Calcium (8.5-10.1) mg/dL Urine Protein (Neg-Trace) mg/dL Urine Ketones (Negative) mg/dL Urine Occult Blood (Negative) Urine Bacteria (None) /hpf Short CBC 03/01/18 Range/Units 04:00 WBC 12.2 H (4.0-11.0) th/mm3 Hgb 9.9 L (11.6-15.3) gm/dL Hct 30.5 L (35.0-46.0) % Plt Count 283 (150-450) th/mm3 BMP 03/01/18 04:00 Sodium 139 Potassium 3.0 L D Chloride 102 Carbon Dioxide 28.4 BUN 9 Creatinine 0.60 Calcium 7.6 L Urine 02/28/18 Range/Units 15:35 Urine Color Jessica (Yellw/Straw) Urine Clarity Clear (Clear) Urine pH 6.0 (5.0-8.5) Ur Specific [place] 1.017 (1.002-1.035) Urine Protein 30 H (Neg-Trace) mg/dL Urine Glucose (UA) Negative (Negative) mg/dL <Leonidas Cortes - 03/01/18 13:12> Abnormal lab results 02/28/18 02/28/18 02/28/18 Range/Units 13:21 15:35 17:09 WBC (4.0-11.0) th/mm3 RBC (4.00-5.30) mil/mm3 Hgb (11.6-15.3) gm/dL Hct (35.0-46.0) % Neut % (Auto) (16.0-70.0) % [place] % (Auto) (0.0-8.0) % Neut # (Auto) (1.8-7.7) th/mm3 [place] # (Auto) (0.0-0.9) th/mm3 Potassium (3.5-5.1) meq/L POC Glucose 224 H 178 H (68-110) mg/dl Random Glucose (74-106) mg/dL Calcium (8.5-10.1) mg/dL Urine Protein 30 H (Neg-Trace) mg/dL Urine Ketones Trace H (Negative) mg/dL Urine Occult Blood Small H (Negative) Urine Bacteria Occasional H (None) /hpf 02/28/18 03/01/18 03/01/18 Range/Units 21:11 04:00 04:00 WBC 12.2 H (4.0-11.0) th/mm3 RBC 3.22 L (4.00-5.30) mil/mm3 Hgb 9.9 L (11.6-15.3) gm/dL Hct 30.5 L (35.0-46.0) % Neut % (Auto) 74.8 H (16.0-70.0) % [place] % (Auto) 8.3 H (0.0-8.0) % Neut # (Auto) 9.2 H (1.8-7.7) th/mm3 [place] # (Auto) 1.0 H (0.0-0.9) th/mm3 Potassium 3.0 L D (3.5-5.1) meq/L POC Glucose 128 H (68-110) mg/dl Random Glucose 159 H (74-106) mg/dL Calcium 7.6 L (8.5-10.1) mg/dL Urine Protein (Neg-Trace) mg/dL Urine Ketones (Negative) mg/dL Urine Occult Blood (Negative) Urine Bacteria (None) /hpf 03/01/18 Range/Units 08:58 WBC (4.0-11.0) th/mm3 RBC (4.00-5.30) mil/mm3 Hgb (11.6-15.3) gm/dL Hct (35.0-46.0) % Neut % (Auto) (16.0-70.0) % [place] % (Auto) (0.0-8.0) % Neut # (Auto) (1.8-7.7) th/mm3 [place] # (Auto) (0.0-0.9) th/mm3 Potassium (3.5-5.1) meq/L POC Glucose 182 H (68-110) mg/dl Random Glucose (74-106) mg/dL Calcium (8.5-10.1) mg/dL Urine Protein (Neg-Trace) mg/dL Urine Ketones (Negative) mg/dL Urine Occult Blood (Negative) Urine Bacteria (None) /hpf Short CBC 03/01/18 Range/Units 04:00 WBC 12.2 H (4.0-11.0) th/mm3 Hgb 9.9 L (11.6-15.3) gm/dL Hct 30.5 L (35.0-46.0) % Plt Count 283 (150-450) th/mm3 BMP 03/01/18 04:00 Sodium 139 Potassium 3.0 L D Chloride 102 Carbon Dioxide 28.4 BUN 9 Creatinine 0.60 Calcium 7.6 L Urine 02/28/18 Range/Units 15:35 Urine Color Jessica (Yellw/Straw) Urine Clarity Clear (Clear) Urine pH 6.0 (5.0-8.5) Ur Specific [place] 1.017 (1.002-1.035) Urine Protein 30 H (Neg-Trace) mg/dL Urine Glucose (UA) Negative (Negative) mg/dL <Moris Moore A - 03/01/18 11:20> - Imaging Impressions Chest CTA 02/28/18 00:00 CONCLUSION: 1. No evidence of pulmonary edema. 2. Minimal pleural fluid right greater than left with atelectasis or scarring in the dependent portions of the lung bases. 3. Cardiomegaly. 4. Small hiatal hernia. <Leonidas Cortes - 03/01/18 13:12> Impressions Chest CTA 02/28/18 00:00 CONCLUSION: 1. No evidence of pulmonary edema. 2. Minimal pleural fluid right greater than left with atelectasis or scarring in the dependent portions of the lung bases. 3. Cardiomegaly. 4. Small hiatal hernia. <Moris Moore - 03/01/18 11:20> Physical Exam Vital signs: Vital Signs 02/28/18 19:48 02/28/18 20:00 03/01/18 00:00 Temperature 99.2 F 98.6 F Pulse Rate 75 81 Respiratory Rate 20 12 Blood Pressure 137/70 134/67 Pulse Oximetry 96 98 94 L 03/01/18 04:00 03/01/18 07:23 03/01/18 08:00 Temperature 98.8 F 98.2 F Pulse Rate 72 81 Respiratory Rate 16 18 Blood Pressure 148/71 H 191/86 H Pulse Oximetry 94 L 92 L 95 03/01/18 08:10 Temperature Pulse Rate Respiratory Rate Blood Pressure 181/77 H Pulse Oximetry Intake & Output 02/28/18 03/01/18 03/01/18 18:59 06:59 18:59 Intake Total 1000 / 1000 1720 / 1720 Output Total 1500 / 1500 Balance 1000 / 1000 220 / 220 Weight 136.4 kg Intake: IV 1000 / 1000 1000 / 1000 NS Inj 1,000 ML @ 100 mls/hr IV 1000 / 1000 1000 / 1000 .CONT .Q10H [facility] Rx#:[id number] Oral 720 / 720 Output: Urine 1500 / 1500 Other: # Voids 1 Date of Last Bowel Movement 02/20/18 03/01/18 02/28/18 # Bowel Movements 1 <Leonidas Cortes - 03/01/18 13:12> Vital Signs 02/28/18 12:00 02/28/18 19:48 02/28/18 20:00 Temperature 97.8 F 99.2 F Pulse Rate 84 75 Respiratory Rate 18 20 Blood Pressure 138/65 137/70 Pulse Oximetry 94 L 96 98 03/01/18 00:00 03/01/18 04:00 03/01/18 07:23 Temperature 98.6 F 98.8 F Pulse Rate 81 72 Respiratory Rate 12 16 Blood Pressure 134/67 148/71 H Pulse Oximetry 94 L 94 L 92 L 03/01/18 08:00 03/01/18 08:10 Temperature 98.2 F Pulse Rate 81 Respiratory Rate 18 Blood Pressure 191/86 H 181/77 H Pulse Oximetry 95 Intake & Output 02/28/18 03/01/18 03/01/18 18:59 06:59 18:59 Intake Total 1000 / 1000 1720 / 1720 Output Total 1500 / 1500 Balance 1000 / 1000 220 / 220 Weight 136.4 kg Intake: IV 1000 / 1000 1000 / 1000 NS Inj 1,000 ML @ 100 mls/hr IV 1000 / 1000 1000 / 1000 .CONT .Q10H [facility] Rx#:[id number] Oral 720 / 720 Output: Urine 1500 / 1500 Other: # Voids 1 Date of Last Bowel Movement 02/20/18 03/01/18 02/28/18 # Bowel Movements 1 <Moris Moore - 03/01/18 11:20> Narrative: General: Obese female, alert, and in no acute distress. Appears stated age. HEENT: Atraumatic, non-icteric sclera and no conjunctival injection, moist mucous membranes Neck: Supple, trachea midline Cardiac: Regular rate and rhythm without murmur Pulmonary: Non-labored breathing. Lungs clear to auscultation bilaterally with good air movement Abdomen: Normal bowel sounds, soft and non-tender without rebound or guarding Extremities: No edema, 2+ pedal pulses, capillary refill less than 2 seconds Left upper extremity has splint in place. Clean dry and intact, neurovascularly intact distal to the fracture. Left lower extremity with improving ecchymosis over the prepatellar area. It is not warm to the touch. Pain improved with ROM of the knee. <Moris Moore - 03/01/18 11:20> Assessment and Plan - Assessment (1) Closed fracture distal radius and ulna Code(s): S52.509A - Unspecified fracture of the lower end of unspecified radius , initial encounter for closed fracture; S52.609A - Unspecified fracture of lower end of unspecified ulna, initial encounter for closed fracture Status: Acute (2) Hematoma of left lower extremity Code(s): S80.12XA - Contusion of left lower leg, initial encounter Status: Acute (3) Fall Code(s): W19.XXXA - Unspecified fall, initial encounter Status: Acute (4) Diabetes mellitus Code(s): E11.9 - Type 2 diabetes mellitus without complications Status: Acute (5) Hypertension Code(s): I10 - Essential (primary) hypertension Status: Acute (6) GERD (gastroesophageal reflux disease) Code(s): K21.9 - Gastro-esophageal reflux disease without esophagitis Status: Acute (7) Sleep apnea Code(s): G47.30 - Sleep apnea, unspecified Status: Acute (8) Incontinence Code(s): R32 - Unspecified urinary incontinence Status: Acute (9) Diabetic neuropathy Code(s): E11.40 - Type 2 diabetes mellitus with diabetic neuropathy, unspecified Status: Acute (10) SIRS (systemic inflammatory response syndrome) Code(s): R65.10 - Systemic inflammatory response syndrome (SIRS) of non- infectious origin without acute organ dysfunction Status: Acute (11) Hypocalcemia Code(s): E83.51 - Hypocalcemia Status: Acute <Leonidas Cortes - 03/01/18 13:12> (1) Closed fracture distal radius and ulna Code(s): S52.509A - Unspecified fracture of the lower end of unspecified radius , initial encounter for closed fracture; S52.609A - Unspecified fracture of lower end of unspecified ulna, initial encounter for closed fracture Status: Acute Plan: (2) Hematoma of left lower extremity Code(s): S80.12XA - Contusion of left lower leg, initial encounter Status: Acute Plan: (3) Fall Code(s): W19.XXXA - Unspecified fall, initial encounter Status: Acute Plan: (4) Diabetes mellitus Code(s): E11.9 - Type 2 diabetes mellitus without complications Status: Acute Plan: (5) Hypertension Code(s): I10 - Essential (primary) hypertension Status: Acute Plan: (6) GERD (gastroesophageal reflux disease) Code(s): K21.9 - Gastro-esophageal reflux disease without esophagitis Status: Acute Plan: (7) Sleep apnea Code(s): G47.30 - Sleep apnea, unspecified Status: Acute Plan: (8) Incontinence Code(s): R32 - Unspecified urinary incontinence Status: Acute Plan: (9) Diabetic neuropathy Code(s): E11.40 - Type 2 diabetes mellitus with diabetic neuropathy, unspecified Status: Acute Plan: (10) SIRS (systemic inflammatory response syndrome) Code(s): R65.10 - Systemic inflammatory response syndrome (SIRS) of non- infectious origin without acute organ dysfunction Status: Acute (11) Hypocalcemia Code(s): E83.51 - Hypocalcemia Status: Acute <Moris Moore - 03/01/18 11:15> - Assessment and Plan 77-year-old woman admitted after a fall where she felt lightheaded and was found to have a distal radius and ulnar fractures. She also has a hematoma of the left knee (s/p total knee replacement). She lives alone and ambulates at home with a walker and is unable to care for herself at home at this time. Sirs Criteria Patient met Sirs criteria with fever of 101.3, 100.1 02/28. Tachycardic. Elevated white count on previous CBC. UA negative. CTA without signs of PE. -Blood culture no growth to date Nondisplaced fracture of the distal radius and ulna -No surgical intervention recommended by orthopedics -PT recommends PT at rehab -7 days a week, twice daily, PT while hospitalized Fall secondary to dizziness -Unsafe discharge at this time due to her deconditioning, orthostatic vitals did not show orthostatic hypotension Hematoma of left knee: Hx of arthroplasty. No malalignment of hardware on XR -Conservative treatment recommended by orthopedics Left Should Pain: XR L shoulder negative for fracture or malalignment Left ankle pain: -Ankle x-ray showed an abnormal calcaneus of indeterminate age -CT of the ankle showed no acute fracture or malalignment. It did show mild widening of the lateral ankle mortis which may indicate some ligamentous injury or instability Back pain: -She has a significant history of back pain and prior back surgery. Due to her increasing pain during this hospitalization her surgeon, Dr. Petersen was consulted. Diabetes mellitus and peripheral neuropathy -Hold home medication sitagliptin -Blood glucose reasonably well controlled thus far -Low-dose sliding scale insulin aspart Continue home medication venlafaxine for neuropathy GERD -Continue home medication pantoprazole Sleep apnea -CPAP at night History of urinary incontinence -UA was negative, no further inpatient workup at this time Hypocalcemia -Monitor and replete as needed Fluids: Adequate p.o. intake Electrolytes: monitor and replete as needed Nutrition: Diabetic diet GI prophylaxis: P.o. pantoprazole (not GI prophylaxis) VTE prophylaxis: Bilateral SCDs (no pharmacologic prophylaxis due to current hematoma) Disposition: She is currently under observation status because she does not meet inpatient criteria. She is not safe to discharge due to her mobility status. <Moris Moore - 03/01/18 11:20> - Attending Attestation See the residents documentation for details. I saw and evaluated the patient regarding the panchal portions of this evaluation and agree with the residents findings and plans as written. Parts of this note were created using [employer] voice recognition software program. While efforts were made to correct any mistakes made by this software, some mistakes, errors, and omissions may remain in the final note that were not caught when the note was originally created. Plan of care was discussed and agreed upon with the patient as specifically documented in the above note. An opportunity to ask questions with explanation was provided. Patient voiced understanding on all information reviewed and discussed. <Leonidas Cortes - 03/01/18 13:12> <Moris Moore - Last Filed: 03/01/18 11:15> (1) Closed fracture distal radius and ulna Qualifiers: Encounter type: initial encounter Laterality: left Qualified Code(s): S52.502A - Unspecified fracture of the lower end of left radius, initial encounter for closed fracture; S52.602A - Unspecified fracture of lower end of left ulna, initial encounter for closed fracture (2) Hematoma of left lower extremity Qualifiers: Encounter type: initial encounter Qualified Code(s): S80.12XA - Contusion of left lower leg, initial encounter (3) Fall Qualifiers: Encounter type: initial encounter Qualified Code(s): W19.XXXA - Unspecified fall, initial encounter <Leonidas Cortes - Last Filed: 03/01/18 13:12> (1) Closed fracture distal radius and ulna Qualifiers: Encounter type: initial encounter Laterality: left Qualified Code(s): S52.502A - Unspecified fracture of the lower end of left radius, initial encounter for closed fracture; S52.602A - Unspecified fracture of lower end of left ulna, initial encounter for closed fracture (2) Hematoma of left lower extremity Qualifiers: Encounter type: initial encounter Qualified Code(s): S80.12XA - Contusion of left lower leg, initial encounter (3) Fall Qualifiers: Encounter type: initial encounter Qualified Code(s): W19.XXXA - Unspecified fall, initial encounter <Moris Moore - Last Filed: 03/01/18 11:15> (1) Closed fracture distal radius and ulna Qualifiers: Encounter type: initial encounter Laterality: left Qualified Code(s): S52.502A - Unspecified fracture of the lower end of left radius, initial encounter for closed fracture; S52.602A - Unspecified fracture of lower end of left ulna, initial encounter for closed fracture (2) Hematoma of left lower extremity Qualifiers: Encounter type: initial encounter Qualified Code(s): S80.12XA - Contusion of left lower leg, initial encounter (3) Fall Qualifiers: Encounter type: initial encounter Qualified Code(s): W19.XXXA - Unspecified fall, initial encounter <Leonidas Cortes - Last Filed: 03/01/18 13:12> (1) Closed fracture distal radius and ulna Qualifiers: Encounter type: initial encounter Laterality: left Qualified Code(s): S52.502A - Unspecified fracture of the lower end of left radius, initial encounter for closed fracture; S52.602A - Unspecified fracture of lower end of left ulna, initial encounter for closed fracture (2) Hematoma of left lower extremity Qualifiers: Encounter type: initial encounter Qualified Code(s): S80.12XA - Contusion of left lower leg, initial encounter (3) Fall Qualifiers: Encounter type: initial encounter Qualified Code(s): W19.XXXA - Unspecified fall, initial encounter
[2018-03-01] MEDS: levoFLOXacin 500 MG Tablet PO SCH (12:04)
[2018-03-01] MEDS: Magnesium Oxide 400 MG Tablet PO SCH (14:05)
[2018-03-01] MEDS ORDERED: Potassium Chloride 25 MEQ Effervescent Tablet NG/OG ONE (15:00)
[2018-03-02] MEDS: Sod Chloride 0.9% Inj 1,000 ML IV.CONT SCH ×3 (06:49→23:48)
[2018-03-02 07:17] LABS: Baso # (Auto) 0.1 th/mm3 (0.0-0.2); Baso % (Auto) 0.7 % (0.0-2.0); Eos # (Auto) 0.3 th/mm3 (0.0-0.4); Eos % (Auto) 2.7 % (0.0-4.0); Hematocrit 32.7 % (35.0-46.0); Hemoglobin 10.9 gm/dL (11.6-15.3); Lymph % (Auto) 19.8 % (9.0-44.0); Mean Corpuscular HGB Conc 33.3 % (32.0-36.0); Mean Corpuscular Hemoglobin 31.2 pg (27.0-34.0); Mean Corpuscular Volume 93.8 fL (80.0-100.0); Mean Platelet Volume 7.4 fL (7.0-11.0); Mono # (Auto) 0.9 th/mm3 (0.0-0.9); Mono % (Auto) 8.6 % (0.0-8.0); Neut # (Auto) 6.9 th/mm3 (1.8-7.7); Neut % (Auto) 68.2 % (16.0-70.0); Platelet Count 337 th/mm3 (150-450); Red Blood Count 3.48 mil/mm3 (4.00-5.30); Red Cell Distribution Width 13.7 % (11.6-17.2); White Blood Count 10.1 th/mm3 (4.0-11.0)
[2018-03-02 07:34] LABS: Anion Gap 9 meq/L (5-15); Blood Urea Nitrogen 10 mg/dL (7-18); Calcium 8.2 mg/dL (8.5-10.1); Carbon Dioxide 27.9 meq/L (21.0-32.0); Chloride 102 meq/L (98-107); Glomerular Filtration Rate Greater Than 89 mL/min (>89); Glucose,Random 151 mg/dL (74-106); Potassium 3.4 meq/L (3.5-5.1); Sodium 139 meq/L (136-145)
[2018-03-02] MEDS: Insulin NovoLOG Aspart Correctional Sugar Inj SQ SCH ×4 (09:15→21:40)
[2018-03-02] MEDS: Venlafaxine XR 75 MG Capsule PO SCH (09:16)
[2018-03-02] MEDS: Magnesium Oxide 400 MG Tablet PO SCH (09:16)
[2018-03-02] MEDS: levoFLOXacin 500 MG Tablet PO SCH (09:16)
[2018-03-02] MEDS: Senna/Docusate Sodium 8.6/50 MG Tablet PO SCH ×2 (09:17→21:39)
[2018-03-02] MEDS: Calcium/Vitamin D 250/125 MG Tablet PO SCH (09:17)
--- NOTE | 2018-03-02 09:50 | P.PNFP ---
Subjective Interval history: Patient seen and examined today. No acute events overnight. Patient reports mild headache, improved from admission. Patient able to correctly and easily identify person, place, time, president. She reports improving pain in left arm and leg. Denies nausea, vomiting, fever, chills, abdominal pain, chest pain, shortness of breath, lightheadedness, dizziness. No other complaints today. <Moris Moore - 03/02/18 09:49> Results - Labs Result diagrams: 03/02/18 05:39 03/02/18 05:39 <Leonidas Cortes - 03/04/18 12:48> Abnormal lab results 03/01/18 03/01/18 03/01/18 Range/Units 12:07 16:22 21:00 RBC (4.00-5.30) mil/mm3 Hgb (11.6-15.3) gm/dL Hct (35.0-46.0) % Stokes % (Auto) (0.0-8.0) % Potassium (3.5-5.1) meq/L POC Glucose 173 H 154 H 153 H (68-110) mg/dl Random Glucose (74-106) mg/dL Calcium (8.5-10.1) mg/dL 03/02/18 03/02/18 03/02/18 Range/Units 03:29 05:39 05:39 RBC 3.48 L (4.00-5.30) mil/mm3 Hgb 10.9 L (11.6-15.3) gm/dL Hct 32.7 L (35.0-46.0) % Stokes % (Auto) 8.6 H (0.0-8.0) % Potassium 3.4 L (3.5-5.1) meq/L POC Glucose 159 H (68-110) mg/dl Random Glucose 151 H (74-106) mg/dL Calcium 8.2 L (8.5-10.1) mg/dL 03/02/18 Range/Units 08:07 RBC (4.00-5.30) mil/mm3 Hgb (11.6-15.3) gm/dL Hct (35.0-46.0) % Stokes % (Auto) (0.0-8.0) % Potassium (3.5-5.1) meq/L POC Glucose 203 H (68-110) mg/dl Random Glucose (74-106) mg/dL Calcium (8.5-10.1) mg/dL Short CBC 03/02/18 Range/Units 05:39 WBC 10.1 (4.0-11.0) th/mm3 Hgb 10.9 L (11.6-15.3) gm/dL Hct 32.7 L (35.0-46.0) % Plt Count 337 (150-450) th/mm3 [facility] 03/02/18 05:39 Sodium 139 Potassium 3.4 L Chloride 102 Carbon Dioxide 27.9 BUN 10 Creatinine 0.61 Calcium 8.2 L <AlphonsofantaMorisCezar - 03/02/18 09:49> Physical Exam Vital signs: Intake & Output 03/03/18 03/04/18 03/04/18 18:59 06:59 18:59 Other: Date of Last Bowel Movement 02/28/18 <Leonidas Cortes - 03/04/18 12:48> Vital Signs 03/01/18 14:00 03/01/18 16:00 03/01/18 20:10 Temperature 98.5 F 98.2 F Pulse Rate 94 H 84 Respiratory Rate 18 19 Blood Pressure 168/69 H 133/63 175/82 H Pulse Oximetry 92 L 94 L 03/02/18 00:40 03/02/18 08:00 Temperature 98.4 F 98.2 F Pulse Rate 76 76 Respiratory Rate 19 16 Blood Pressure 168/78 H 189/86 H Pulse Oximetry 94 L 94 L Intake & Output 03/01/18 03/02/18 03/02/18 18:59 06:59 18:59 Intake Total 1000 / 1000 540 / 540 Balance 1000 / 1000 540 / 540 Weight 136 kg Intake: IV 1000 / 1000 NS Inj 1,000 ML @ 100 mls/hr IV 1000 / 1000 .CONT .Q10H SAHIL Rx#:[id number] Oral 540 / 540 Other: # Voids 1 Date of Last Bowel Movement 02/28/18 02/28/18 # Bowel Movements 0 <AlphonsofantaMorisCezar - 03/02/18 09:49> Narrative: General: Obese female, alert, and in no acute distress. Appears stated age. HEENT: Atraumatic, non-icteric sclera and no conjunctival injection, moist mucous membranes Neck: Supple, trachea midline Cardiac: Regular rate and rhythm without murmur Pulmonary: Non-labored breathing. Lungs clear to auscultation bilaterally with good air movement Abdomen: Normal bowel sounds, soft and non-tender without rebound or guarding Extremities: No edema, 2+ pedal pulses, capillary refill less than 2 seconds Left upper extremity has splint in place. Clean dry and intact, neurovascularly intact distal to the fracture. Left lower extremity with improving ecchymosis over the prepatellar area. It is not warm to the touch. Mile pain with ROM of the knee, improved from yesterday. <Moris Moore - 03/02/18 09:49> Assessment and Plan - Assessment (1) Closed fracture distal radius and ulna Code(s): S52.509A - Unspecified fracture of the lower end of unspecified radius , initial encounter for closed fracture; S52.609A - Unspecified fracture of lower end of unspecified ulna, initial encounter for closed fracture Status: Acute (2) Hematoma of left lower extremity Code(s): S80.12XA - Contusion of left lower leg, initial encounter Status: Acute (3) Fall Code(s): W19.XXXA - Unspecified fall, initial encounter Status: Acute (4) Diabetes mellitus Code(s): E11.9 - Type 2 diabetes mellitus without complications Status: Acute (5) Hypertension Code(s): I10 - Essential (primary) hypertension Status: Acute (6) GERD (gastroesophageal reflux disease) Code(s): K21.9 - Gastro-esophageal reflux disease without esophagitis Status: Acute (7) Sleep apnea Code(s): G47.30 - Sleep apnea, unspecified Status: Acute (8) Incontinence Code(s): R32 - Unspecified urinary incontinence Status: Acute (9) Diabetic neuropathy Code(s): E11.40 - Type 2 diabetes mellitus with diabetic neuropathy, unspecified Status: Acute (10) SIRS (systemic inflammatory response syndrome) Code(s): R65.10 - Systemic inflammatory response syndrome (SIRS) of non- infectious origin without acute organ dysfunction Status: Resolved (11) Hypocalcemia Code(s): E83.51 - Hypocalcemia Status: Acute <Leonidas Cortes - 03/04/18 12:48> (1) Closed fracture distal radius and ulna Code(s): S52.509A - Unspecified fracture of the lower end of unspecified radius , initial encounter for closed fracture; S52.609A - Unspecified fracture of lower end of unspecified ulna, initial encounter for closed fracture Status: Acute Plan: (2) Hematoma of left lower extremity Code(s): S80.12XA - Contusion of left lower leg, initial encounter Status: Acute Plan: (3) Fall Code(s): W19.XXXA - Unspecified fall, initial encounter Status: Acute Plan: (4) Diabetes mellitus Code(s): E11.9 - Type 2 diabetes mellitus without complications Status: Acute Plan: (5) Hypertension Code(s): I10 - Essential (primary) hypertension Status: Acute Plan: (6) GERD (gastroesophageal reflux disease) Code(s): K21.9 - Gastro-esophageal reflux disease without esophagitis Status: Acute Plan: (7) Sleep apnea Code(s): G47.30 - Sleep apnea, unspecified Status: Acute Plan: (8) Incontinence Code(s): R32 - Unspecified urinary incontinence Status: Acute Plan: (9) Diabetic neuropathy Code(s): E11.40 - Type 2 diabetes mellitus with diabetic neuropathy, unspecified Status: Acute Plan: (10) SIRS (systemic inflammatory response syndrome) Code(s): R65.10 - Systemic inflammatory response syndrome (SIRS) of non- infectious origin without acute organ dysfunction Status: Resolved (11) Hypocalcemia Code(s): E83.51 - Hypocalcemia Status: Acute <Moris Moore - 03/02/18 09:45> - Assessment and Plan 77-year-old woman admitted after a fall where she felt lightheaded and was found to have a distal radius and ulnar fractures. She also has a hematoma of the left knee (s/p total knee replacement). She lives alone and ambulates at home with a walker and is unable to care for herself at home at this time. Sirs Criteria Patient met Sirs criteria with fever of 101.3, 100.1 02/28. Tachycardic. Elevated white count on previous CBC. UA negative. CTA without signs of PE. Currently resolved. -Blood culture no growth to date Nondisplaced fracture of the distal radius and ulna -No surgical intervention recommended by orthopedics -PT recommends PT at rehab -7 days a week, twice daily, PT while hospitalized Fall secondary to dizziness -Needs to be discharged to rehab, orthostatic vitals did not show orthostatic hypotension Hematoma of left knee: Hx of arthroplasty. No malalignment of hardware on XR -Conservative treatment recommended by orthopedics Left Should Pain: XR L shoulder negative for fracture or malalignment Left ankle pain: -Ankle x-ray showed an abnormal calcaneus of indeterminate age -CT of the ankle showed no acute fracture or malalignment. It did show mild widening of the lateral ankle mortis which may indicate some ligamentous injury or instability Back pain: -She has a significant history of back pain and prior back surgery. Due to her increasing pain during this hospitalization her surgeon, Dr. Petersen was consulted. Diabetes mellitus and peripheral neuropathy -Hold home medication sitagliptin -Blood glucose reasonably well controlled thus far -Low-dose sliding scale insulin aspart Continue home medication venlafaxine for neuropathy GERD -Continue home medication pantoprazole Sleep apnea -CPAP at night History of urinary incontinence -UA was negative, no further inpatient workup at this time Hypocalcemia -Monitor and replete as needed Fluids: Adequate p.o. intake Electrolytes: monitor and replete as needed Nutrition: Diabetic diet GI prophylaxis: P.o. pantoprazole (not GI prophylaxis) VTE prophylaxis: Bilateral SCDs (no pharmacologic prophylaxis due to current hematoma) <Moris Moore - 03/02/18 09:49> - Attending Attestation See the residents documentation for details. I saw and evaluated the patient regarding the panchal portions of this evaluation and agree with the residents findings and plans as written. Parts of this note were created using [employer] voice recognition software program. While efforts were made to correct any mistakes made by this software, some mistakes, errors, and omissions may remain in the final note that were not caught when the note was originally created. Plan of care was discussed and agreed upon with the patient as specifically documented in the above note. An opportunity to ask questions with explanation was provided. Patient voiced understanding on all information reviewed and discussed. <Leonidas Cortes - 03/04/18 12:48> <Moris Moroe A - Last Filed: 03/02/18 09:45> (1) Closed fracture distal radius and ulna Qualifiers: Encounter type: initial encounter Laterality: left Qualified Code(s): S52.502A - Unspecified fracture of the lower end of left radius, initial encounter for closed fracture; S52.602A - Unspecified fracture of lower end of left ulna, initial encounter for closed fracture (2) Hematoma of left lower extremity Qualifiers: Encounter type: initial encounter Qualified Code(s): S80.12XA - Contusion of left lower leg, initial encounter (3) Fall Qualifiers: Encounter type: initial encounter Qualified Code(s): W19.XXXA - Unspecified fall, initial encounter <Leonidas Cortes - Last Filed: 03/04/18 12:48> (1) Closed fracture distal radius and ulna Qualifiers: Encounter type: initial encounter Laterality: left Qualified Code(s): S52.502A - Unspecified fracture of the lower end of left radius, initial encounter for closed fracture; S52.602A - Unspecified fracture of lower end of left ulna, initial encounter for closed fracture (2) Hematoma of left lower extremity Qualifiers: Encounter type: initial encounter Qualified Code(s): S80.12XA - Contusion of left lower leg, initial encounter (3) Fall Qualifiers: Encounter type: initial encounter Qualified Code(s): W19.XXXA - Unspecified fall, initial encounter <Moris Moore - Last Filed: 03/02/18 09:45> (1) Closed fracture distal radius and ulna Qualifiers: Encounter type: initial encounter Laterality: left Qualified Code(s): S52.502A - Unspecified fracture of the lower end of left radius, initial encounter for closed fracture; S52.602A - Unspecified fracture of lower end of left ulna, initial encounter for closed fracture (2) Hematoma of left lower extremity Qualifiers: Encounter type: initial encounter Qualified Code(s): S80.12XA - Contusion of left lower leg, initial encounter (3) Fall Qualifiers: Encounter type: initial encounter Qualified Code(s): W19.XXXA - Unspecified fall, initial encounter <Leonidas Cortes - Last Filed: 03/04/18 12:48> (1) Closed fracture distal radius and ulna Qualifiers: Encounter type: initial encounter Laterality: left Qualified Code(s): S52.502A - Unspecified fracture of the lower end of left radius, initial encounter for closed fracture; S52.602A - Unspecified fracture of lower end of left ulna, initial encounter for closed fracture (2) Hematoma of left lower extremity Qualifiers: Encounter type: initial encounter Qualified Code(s): S80.12XA - Contusion of left lower leg, initial encounter (3) Fall Qualifiers: Encounter type: initial encounter Qualified Code(s): W19.XXXA - Unspecified fall, initial encounter
[2018-03-02] MEDS: PT:LETROZOLE 2.5 MG PO SCH (11:51)
[2018-03-02] MEDS ORDERED: Captopril 12.5 MG Tablet PO PRN (23:45)
[2018-03-03] MEDS: Magnesium Oxide 400 MG Tablet PO SCH (08:39)
[2018-03-03] MEDS: PT:LETROZOLE 2.5 MG PO SCH (08:39)
[2018-03-03] MEDS: levoFLOXacin 500 MG Tablet PO SCH (08:39)
[2018-03-03] MEDS: Senna/Docusate Sodium 8.6/50 MG Tablet PO SCH (08:40)
[2018-03-03] MEDS: Calcium/Vitamin D 250/125 MG Tablet PO SCH (08:40)
[2018-03-03] MEDS: Venlafaxine XR 75 MG Capsule PO SCH (08:40)
[2018-03-03] MEDS: Insulin NovoLOG Aspart Correctional Sugar Inj SQ SCH ×2 (08:41→12:02)
[2018-03-03] MEDS: Sod Chloride 0.9% Inj 1,000 ML IV.CONT SCH (09:38)
--- NOTE | 2018-03-03 10:29 | P.PNFP ---
Subjective Interval history: There were no acute events overnight. She did have mildly elevated blood pressures yesterday with a high of 187/88. She reports some headache this morning. Her pain does continue to improve. She denies fever, chills, lightheadedness, dizziness, nausea, vomiting, chest pain, shortness of breath, palpitations. She has no new complaints today. She does not wish to go to most of the SNFs in this area as she reports they are not good. <Barney Zamora - 03/03/18 10:29> Results - Labs Result diagrams: 03/02/18 05:39 03/02/18 05:39 <Leonidas Cortes - 03/04/18 12:58> Abnormal lab results 03/02/18 03/02/18 03/02/18 Range/Units 11:54 16:34 20:30 POC Glucose 171 H 185 H 210 H (68-110) mg/dl 03/03/18 Range/Units 07:34 POC Glucose 161 H (68-110) mg/dl <Barney Zamora - 03/03/18 10:29> Physical Exam Vital signs: Intake & Output 03/03/18 03/04/18 03/04/18 18:59 06:59 18:59 Other: Date of Last Bowel Movement 02/28/18 <Leonidas Cortes - 03/04/18 12:58> Vital Signs 03/02/18 12:00 03/02/18 16:00 03/02/18 19:43 Temperature 98.0 F 98.4 F 98.6 F Pulse Rate 82 86 78 Respiratory Rate 17 18 18 Blood Pressure 180/74 H 166/92 H 170/78 H Pulse Oximetry 94 L 94 L 96 03/02/18 23:15 03/03/18 04:47 03/03/18 08:00 Temperature 98.1 F 98.2 F 98.7 F Pulse Rate 80 73 73 Respiratory Rate 18 18 Blood Pressure 177/83 H 187/88 H 185/79 H Pulse Oximetry 95 95 95 03/03/18 09:33 Temperature Pulse Rate Respiratory Rate Blood Pressure Pulse Oximetry 95 Intake & Output 03/02/18 03/03/18 03/03/18 18:59 06:59 18:59 Intake Total 1000 / 1000 600 / 600 Balance 1000 / 1000 600 / 600 Weight 137.8 kg Intake: Oral 1000 / 1000 600 / 600 Other: # Voids 4 # Incontinent Voids 3 2 Date of Last Bowel Movement 02/28/18 02/28/18 02/28/18 # Bowel Movements 0 <Barney Zamora - 03/03/18 10:29> Narrative: General: Obese female, alert, and in no acute distress. Appears stated age. HEENT: Atraumatic, non-icteric sclera and no conjunctival injection, moist mucous membranes Neck: Supple, trachea midline Cardiac: Regular rate and rhythm without murmur Pulmonary: Non-labored breathing. Lungs clear to auscultation bilaterally with good air movement Abdomen: Normal bowel sounds, soft and non-tender without rebound or guarding Extremities: No edema, 2+ pedal pulses, capillary refill less than 2 seconds Left upper extremity has cast in place, neurovascularly intact distal to the fracture. Left lower extremity with improving ecchymosis over the prepatellar area. It is not warm to the touch. <Barney Zamora - 03/03/18 10:29> Assessment and Plan - Assessment (1) Closed fracture distal radius and ulna Code(s): S52.509A - Unspecified fracture of the lower end of unspecified radius , initial encounter for closed fracture; S52.609A - Unspecified fracture of lower end of unspecified ulna, initial encounter for closed fracture Status: Acute (2) Hematoma of left lower extremity Code(s): S80.12XA - Contusion of left lower leg, initial encounter Status: Acute (3) Fall Code(s): W19.XXXA - Unspecified fall, initial encounter Status: Acute (4) Diabetes mellitus Code(s): E11.9 - Type 2 diabetes mellitus without complications Status: Acute (5) Hypertension Code(s): I10 - Essential (primary) hypertension Status: Acute (6) GERD (gastroesophageal reflux disease) Code(s): K21.9 - Gastro-esophageal reflux disease without esophagitis Status: Acute (7) Sleep apnea Code(s): G47.30 - Sleep apnea, unspecified Status: Acute (8) Incontinence Code(s): R32 - Unspecified urinary incontinence Status: Acute (9) Diabetic neuropathy Code(s): E11.40 - Type 2 diabetes mellitus with diabetic neuropathy, unspecified Status: Acute (10) SIRS (systemic inflammatory response syndrome) Code(s): R65.10 - Systemic inflammatory response syndrome (SIRS) of non- infectious origin without acute organ dysfunction Status: Resolved (11) Hypocalcemia Code(s): E83.51 - Hypocalcemia Status: Acute <Leonidas Cortes - 03/04/18 12:58> (1) Closed fracture distal radius and ulna Code(s): S52.509A - Unspecified fracture of the lower end of unspecified radius , initial encounter for closed fracture; S52.609A - Unspecified fracture of lower end of unspecified ulna, initial encounter for closed fracture Status: Acute Plan: (2) Hematoma of left lower extremity Code(s): S80.12XA - Contusion of left lower leg, initial encounter Status: Acute Plan: (3) Fall Code(s): W19.XXXA - Unspecified fall, initial encounter Status: Acute Plan: (4) Diabetes mellitus Code(s): E11.9 - Type 2 diabetes mellitus without complications Status: Acute Plan: (5) Hypertension Code(s): I10 - Essential (primary) hypertension Status: Acute Plan: (6) GERD (gastroesophageal reflux disease) Code(s): K21.9 - Gastro-esophageal reflux disease without esophagitis Status: Acute Plan: (7) Sleep apnea Code(s): G47.30 - Sleep apnea, unspecified Status: Acute Plan: (8) Incontinence Code(s): R32 - Unspecified urinary incontinence Status: Acute Plan: (9) Diabetic neuropathy Code(s): E11.40 - Type 2 diabetes mellitus with diabetic neuropathy, unspecified Status: Acute Plan: (10) SIRS (systemic inflammatory response syndrome) Code(s): R65.10 - Systemic inflammatory response syndrome (SIRS) of non- infectious origin without acute organ dysfunction Status: Resolved (11) Hypocalcemia Code(s): E83.51 - Hypocalcemia Status: Acute <Barney Zamora - 03/03/18 10:30> - Assessment and Plan 77-year-old woman admitted after a fall where she felt lightheaded and was found to have a distal radius and ulnar fractures. She also has a hematoma of the left knee (s/p total knee replacement). She lives alone and ambulates at home with a walker and is unable to care for herself at home at this time. SIRS Patient met Sirs criteria with fever of 101.3, 100.1 02/28. Tachycardic. Elevated white count on previous CBC. UA negative. CTA without signs of PE. Currently resolved. -Blood culture drawn 02/27: no growth to date Nondisplaced fracture of the distal radius and ulna -No surgical intervention recommended by orthopedics -PT recommends PT at rehab -7 days a week, twice daily, PT while hospitalized Fall secondary to dizziness -Needs to be discharged to rehab, orthostatic vitals did not show orthostatic hypotension Hematoma of left knee: Hx of arthroplasty. No malalignment of hardware on XR -Conservative treatment recommended by orthopedics Left Should Pain: XR L shoulder negative for fracture or malalignment Left ankle pain: -Ankle x-ray showed an abnormal calcaneus of indeterminate age -CT of the ankle showed no acute fracture or malalignment. It did show mild widening of the lateral ankle mortis which may indicate some ligamentous injury or instability Back pain: -She has a significant history of back pain and prior back surgery. Due to her increasing pain during this hospitalization her surgeon, Dr. Petersen was consulted. Diabetes mellitus and peripheral neuropathy -Hold home medication sitagliptin -Blood glucose reasonably well controlled thus far -Low-dose sliding scale insulin aspart Continue home medication venlafaxine for neuropathy GERD -Continue home medication pantoprazole Sleep apnea -CPAP at night History of urinary incontinence -UA was negative, no further inpatient workup at this time Hypocalcemia -Monitor and replete as needed Fluids: Adequate p.o. intake Electrolytes: monitor and replete as needed Nutrition: Diabetic diet GI prophylaxis: Continue home medication p.o. pantoprazole VTE prophylaxis: Bilateral SCDs (no pharmacologic prophylaxis due to current hematoma) Disposition: She does not meet criteria to go to [facility]. The SNF that she wishes to go to does not have any beds currently. She is refusing to go to other SNFs at this time in case management is working with her on placement. Patient was seen and examined with Dr. Cortes. <Barney Zamora - 03/03/18 10:29> - Attending Attestation See the residents documentation for details. I saw and evaluated the patient regarding the panchal portions of this evaluation and agree with the residents findings and plans as written. Parts of this note were created using [employer] voice recognition software program. While efforts were made to correct any mistakes made by this software, some mistakes, errors, and omissions may remain in the final note that were not caught when the note was originally created. Plan of care was discussed and agreed upon with the patient as specifically documented in the above note. An opportunity to ask questions with explanation was provided. Patient voiced understanding on all information reviewed and discussed. <Leonidas Cortes - 03/04/18 12:58> <Barney Zamora - Last Filed: 03/03/18 10:30> (1) Closed fracture distal radius and ulna Qualifiers: Encounter type: initial encounter Laterality: left Qualified Code(s): S52.502A - Unspecified fracture of the lower end of left radius, initial encounter for closed fracture; S52.602A - Unspecified fracture of lower end of left ulna, initial encounter for closed fracture (2) Hematoma of left lower extremity Qualifiers: Encounter type: initial encounter Qualified Code(s): S80.12XA - Contusion of left lower leg, initial encounter (3) Fall Qualifiers: Encounter type: initial encounter Qualified Code(s): W19.XXXA - Unspecified fall, initial encounter <Leonidas Cortes - Last Filed: 03/04/18 12:58> (1) Closed fracture distal radius and ulna Qualifiers: Encounter type: initial encounter Laterality: left Qualified Code(s): S52.502A - Unspecified fracture of the lower end of left radius, initial encounter for closed fracture; S52.602A - Unspecified fracture of lower end of left ulna, initial encounter for closed fracture (2) Hematoma of left lower extremity Qualifiers: Encounter type: initial encounter Qualified Code(s): S80.12XA - Contusion of left lower leg, initial encounter (3) Fall Qualifiers: Encounter type: initial encounter Qualified Code(s): W19.XXXA - Unspecified fall, initial encounter <Barney Zamora - Last Filed: 03/03/18 10:30> (1) Closed fracture distal radius and ulna Qualifiers: Encounter type: initial encounter Laterality: left Qualified Code(s): S52.502A - Unspecified fracture of the lower end of left radius, initial encounter for closed fracture; S52.602A - Unspecified fracture of lower end of left ulna, initial encounter for closed fracture (2) Hematoma of left lower extremity Qualifiers: Encounter type: initial encounter Qualified Code(s): S80.12XA - Contusion of left lower leg, initial encounter (3) Fall Qualifiers: Encounter type: initial encounter Qualified Code(s): W19.XXXA - Unspecified fall, initial encounter <Leonidas Cortes - Last Filed: 03/04/18 12:58> (1) Closed fracture distal radius and ulna Qualifiers: Encounter type: initial encounter Laterality: left Qualified Code(s): S52.502A - Unspecified fracture of the lower end of left radius, initial encounter for closed fracture; S52.602A - Unspecified fracture of lower end of left ulna, initial encounter for closed fracture (2) Hematoma of left lower extremity Qualifiers: Encounter type: initial encounter Qualified Code(s): S80.12XA - Contusion of left lower leg, initial encounter (3) Fall Qualifiers: Encounter type: initial encounter Qualified Code(s): W19.XXXA - Unspecified fall, initial encounter
--- NOTE | 2018-03-08 11:52 | P.DS ---
Date of admission: 02/28/18 10:31 Primary care physician: Marshall Cali MD Brief History from admission: Ms. Jackson is a 77-year-old female presenting to the ED with recent fall and subsequent left wrist fracture. Patient states that approximately 1330 this afternoon she was watching TV when she mary from a sitting position attempted to take 2 steps and then fell forward striking her L head against a chest of drawers after experiencing a short episode of dizziness. Patient states that she did not lose consciousness during the fall and fell onto her left outstretched arm and knee. She was unable to pick herself off the floor and began to scream for help. Her neighbor overheard and used her spare panchal to come a sister. [facility] was called and patient presented to ED. Patient endorsed with focal pain and her left upper extremity and left knee with full body tenderness. Patient was further evaluated with multiple imaging studies and found to have a nondisplaced fracture of the distal radius and ulna. Patient was then admitted as she is a unsafe discharge as she currently lives alone and has decreased mobility. Other than her body pain from the fall, patient has no other acute complaints denies any fevers, chills, shortness of breath, chest pain, NVD, abdominal pain, or calf tenderness at this time. Of note, patient unable to provide medications during medication reconciliation. Medication list obtained from prior hospital visits and their assistance of pharmacy in ED. also unsure if patient provided full past medical history as per previous chart review patient has reports of previous Sarah fundoplication and has been evaluated by GI for dysphasia issues. Patient also appears to be on letrozole without reporting a history of breast cancer. PMHx: Diabetes High blood pressure GERD Sleep Apnea Bladder incontinence Previous BL wrist fractures Medications: Unknown to patient PSHx: BL knee replacements L hip replacement Hysterectomy Cholecystectomy Appendectomy FMHx: Father - Lung cancer Mother - Breast Cancer Sister - Breast cancer Social: Live alone in the apartment. No home health aid or current PT. Tobacco - No reported history Alcohol - No reported history Illicit - No reported history DS: Diagnosis - Discharge Diagnosis (1) Closed fracture distal radius and ulna Status: Acute (2) Hematoma of left lower extremity Status: Acute (3) Fall Status: Acute (4) Diabetes mellitus Status: Acute (5) Hypertension Status: Acute (6) GERD (gastroesophageal reflux disease) Status: Acute (7) Sleep apnea Status: Acute (8) Incontinence Status: Acute (9) Diabetic neuropathy Status: Acute (10) SIRS (systemic inflammatory response syndrome) Status: Resolved (11) Hypocalcemia Status: Acute DS: Medications - Discharge Medications Prescriptions: carvedilol [Coreg] 6.25 mg PO BID #60 tab losartan-hydrochlorothiazide 1 tab PO DAILY #30 tab DS: Summary Hospital Course: She was admitted due to her decline in functional status and the inability to ambulate with her walker after her fractures of the distal radius and ulna. She also had a significant hematoma of the left knee (which is status post left knee arthroplasty). She was put on bilateral SCDs, pharmacologic DVT prophylaxis was avoided due to her hematoma. Due to her functional status physical therapy 7 days a week was ordered. She continued to have significant pain and difficulty with her mobility. On hospital day 9 she met SIRS criteria with tachycardia, fever, and elevated white count on a prior CBC. Blood cultures were drawn which remained negative throughout hospitalization. CTA of the chest was ordered due to her developing shortness of breath. This was also negative. Her functional status remained poor. She was discharged in stable condition to a [facility] for PT and OT at rehab. - Time Spent with Patient Total time spent providing and/or coordinating discharge services: Less than 30 minutes - Quality: VTE Deep Vein Thrombosis/Pulmonary Embolism Present on Admission: No Exam Narrative: General: Obese female, alert, and in no acute distress. Appears stated age. HEENT: Atraumatic, non-icteric sclera and no conjunctival injection, moist mucous membranes Neck: Supple, trachea midline Cardiac: Regular rate and rhythm without murmur Pulmonary: Non-labored breathing. Lungs clear to auscultation bilaterally with good air movement Abdomen: Normal bowel sounds, soft and non-tender without rebound or guarding Extremities: No edema, 2+ pedal pulses, capillary refill less than 2 seconds Left upper extremity has cast in place, neurovascularly intact distal to the fracture. Left lower extremity with improving ecchymosis over the prepatellar area. It is not warm to the touch. Results Procedures completed during hospitalization: none - Impressions ITS Impressions Hip X-Ray 02/20/18 00:00 CONCLUSION: 1. Intact pelvis and left hip. 2. Healed left intertrochanteric fracture post nail and akosua fixation. Cervical Spine CT 02/20/18 15:28 CONCLUSION: 1. Stable osteopenia and degenerative changes are noted throughout the cervical spine. 2. Mild broad-based bulging with disc osteophyte complex at C5-6. 3. No significant changes are seen compared to the prior exam. Face CT 02/20/18 15:28 CONCLUSION: 1. No acute bony fracture. 2. Chronic sinus disease in the right sphenoid and ethmoid sinuses. 3. 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 Head CT 02/20/18 15:28 CONCLUSION: 1. No focal or acute intracranial hemorrhage. 2. Stable bilateral cortical atrophy and chronic white matter changes. . Knee X-Ray 02/20/18 15:28 CONCLUSION: 1. Status post left knee arthroplasty. No radiographic evidence for hardware failure. 2. No acute fracture. Wrist X-Ray 02/20/18 15:28 CONCLUSION: Nondisplaced fracture of the distal radius and ulna. Diffuse osteopenia Lower Extremity Ultrasound 02/21/18 00:00 CONCLUSION: There are 3 adjacent and potentially connecting heterogeneous fluid collections in the prepatellar region of the left knee. The appearance and recent trauma, these could represent Thomson-Brittani lesions or combination of a simple edema and hematomas. Ankle X-Ray 02/25/18 00:00 CONCLUSION: 1. Abnormal appearing calcaneus of indeterminate age. There are no prior studies for comparison. If clinically indicated this could be further evaluated with CT. 2. Degenerative change involving the tibiotalar joint. The distal tibia and fibula are intact. Ankle CT 02/26/18 00:00 CONCLUSION: 1. Soft tissue swelling with no acute fracture or malalignment. 2. Mild widening of the lateral ankle mortise compared to the medial mortise which could indicate ligamentous injury or instability of indeterminate age. 3. Mild diffuse osteoarthritic changes. 4. Diffuse osteopenia. Shoulder X-Ray 02/26/18 00:00 CONCLUSION: Negative trauma study with no acute fracture or malalignment. Chest CTA 02/28/18 00:00 CONCLUSION: 1. No evidence of pulmonary edema. 2. Minimal pleural fluid right greater than left with atelectasis or scarring in the dependent portions of the lung bases. 3. Cardiomegaly. 4. Small hiatal hernia. Chest X-Ray 02/28/18 00:00 CONCLUSION: Cardiomegaly with Central interstitial vascular prominence characteristic of early congestion. Minimal right midlung airspace disease. Discharge Plan - Discharge Disposition Patient Disposition: 03 Discharge to SNF - Discharge Condition Condition: Stable - Discharge Order Discharge Orders: Discharge Order (Routine); Ordered 03/02/18 Ordered By: Moris Moore - Physicians Team Primary Care Provider: Marshall Cali Attending Provider: Leonidas Cortes Other Providers: Parminder Julien MD ; Cinthya Avelar MD ; Deshawn Petersen MD ; [facility],[place]
== END 2018-03-03 16:11 ==
LOC: NEDA 15:02 → NEPE 15:02 → NEDA 20:30 → NEPGCP 20:38 → N06 03-01 15:12
PROVIDERS: ADMIT Family Medicine; ATTEND Family Medicine